=== PATIENT | male | born 1980 | race Caucasian/White ===

== ENCOUNTER 2023-12-09 15:29 | Emergency (ER) | payer OTHER, MEDICAID, SELFPAY ==
[2023-12-09] VITALS (17 sets, daily range): BP systolic 130–156; BP diastolic 47–86; PULSE 49–89; RESP 12–22; TEMP 37.6; O2SAT 97–100; BMI 47.9
--- NOTE | 2023-12-09 15:56 | CT_ITS ---
The [address] [address] Patient Name: MAURO NUNEZ MRN: [id number] date: 1980 Sex: M Assigned Patient Location: ER Current Patient Location: ER Accession/Order Number: [id number] Exam Date: 12/09/2023 16:25 Report Date: 12/09/2023 16:41 At the request of: ALAYNA LOPEZ Procedure: CT head/brain wo con EXAM: CT head/brain wo con HISTORY: Dizziness COMPARISON: None. TECHNIQUE: Axial CT images were obtained of the head without intravenous contrast. Multiplanar reconstructions were performed. FINDINGS: No acute intracranial hemorrhage. No acute loss of byrd/white differentiation. The ventricles and sulci are normal in appearance. The osseous structures are unremarkable. No soft tissue abnormality identified. The paranasal sinuses and mastoid air cells are clear. CT/CT head/brain wo con IMPRESSION: 1. No acute intracranial abnormality. Electronically authenticated by: MARY POOLE Date: 12/09/2023 16:41
--- NOTE | 2023-12-09 15:56 | ECG_ITS ---
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
--- NOTE | 2023-12-09 16:00 | ED.DIZZY1 ---
HPI - Dizziness General Chief Complaint: Dizziness Stated Complaint: DIZZINESS Time Seen by Provider: 12/09/23 15:47 History of Present Illness HPI Narrative: 43 year old male presents to the ED for dizziness. Onset was 4-5 days ago. Reports a mild spinning sensation. He has right ear and right facial pressure. Denies fever, chills, vision changes, OLIVA, weakness. Denies congestion, rhinorrhea, sore throat cough. Denies CP, SOB, palpitations. Denies N/V/D. Related Data Home Medications Medication Instructions Recorded Confirmed hydrochlorothiazide 25 mg tablet 25 mg PO DAILY 12/09/23 12/09/23 lorazepam 0.5 mg tablet 0.5 mg PO Q12H PRN anxiety 12/09/23 12/09/23 metoprolol succinate 100 mg 100 mg PO DAILY 12/09/23 12/09/23 tablet,extended release 24 hr potassium chloride 10 mEq 10 meq PO DAILY 12/09/23 12/09/23 tablet,extended release Previous Rx's Medication Instructions Recorded loratadine 5 mg-pseudoephedrine ER 1 tab PO BID PRN sinus symptoms 12/09/23 120 mg tablet,extended #10 tabs release,12hr (Claritin-D 12 Hour) Allergies Allergy/AdvReac Type Severity Reaction Status Date / Time No Known Drug Allergies Allergy Verified 12/09/23 15:48 Review of Systems ROS Constitutional Denies: fever or chills Eyes Denies: change in vision, blurry vision or light sensitivity Ears, nose, mouth, and throat Reports: ear pain; Denies: throat pain, neck pain, throat swelling, ear discharge, nasal discharge or nasal congestion Cardiovascular Denies: chest pain or palpitations Respiratory Denies: shortness of breath or cough Gastrointestinal Denies: abdominal pain, nausea, vomiting or diarrhea Musculoskeletal Denies: back pain or neck pain Integumentary/Breast Denies: rash or itching Neurological Reports: dizziness and vertigo; Denies: headache, numbness in extremities, weakness in extremities, lack of coordination, confusion or slurred speech Exam Constitutional Vital Signs, click to edit/add: Last Vital Signs Temp 99.6 F 12/09/23 15:35 Pulse 55 L 12/09/23 17:20 Resp 15 12/09/23 17:20 BP 130/67 12/09/23 15:52 Pulse Ox 97 12/09/23 17:20 O2 Del Method Room Air 12/09/23 15:35 Common normals: no apparent distress and oriented x3 General appearance: cooperative HENMT Common normals: normocephalic Face and sinus: normal facial exam Nose: external nose normal External ear: external ears normal External auditory canal: EACs normal Tympanic membrane: TMs normal bilaterally Mouth: oral and palatal mucosa normal, lip normal and tongue normal Throat: posterior oropharynx normal and uvula midline Eye Common normals: PERRL, EOMs intact bilaterally, conjunctivae normal and no scleral icterus Neck & C-Spine Common normals: supple Chest Chest: symmetrical chest wall rise Respiratory Common normals: normal respiratory effort and clear to auscultation bilaterally Effort & inspection: able to speak in complete sentences and symmetric chest movement Cardio Common normals: regular rate and regular rhythm Neuro Common normals: oriented x3 and CN's II-XII intact bilaterally Sensorium/orientation: awake and alert Speech: speech normal Gait (neuro): normal gait Motor exam: strength 5/5 throughout Psych Attitude: calm Speech: normal speech Course Vital Signs Vital signs: Vital Signs Temperature 99.6 F 12/09/23 15:35 Pulse Rate 89 12/09/23 15:35 Respiratory Rate 20 12/09/23 15:35 Blood Pressure 132/47 L 12/09/23 15:35 Pulse Oximetry 100 12/09/23 15:35 Oxygen Delivery Method Room Air 12/09/23 15:35 Temperature 99.6 F 12/09/23 15:35 Pulse Rate 55 L 12/09/23 17:20 Respiratory Rate 15 12/09/23 17:20 Blood Pressure 130/67 12/09/23 15:52 Pulse Oximetry 97 12/09/23 17:20 Oxygen Delivery Method Room Air 12/09/23 15:35 MDM - Dizziness MDM Narrative Medical decision making narrative: Potassium was 3.3, magnesium 1.7. He takes a potassium supplement. Imaging was negative for acute findings. Additional laboratory studies were unremarkable. He declined Antivert here. A prescription was provided for Claritin-D. Follow up with pcp for a recheck, further evaluation and treatment. Return precautions were discussed. Medical Records Attestation: I reviewed the patient's medical records. Lab Data Attestation: I reviewed the patient's lab results. Labs: Lab Results 12/09/23 Range/Units 16:16 WBC 6.5 (4.0-11.0) 10^3/uL RBC 4.08 L (4.70-6.10) 10^6/uL Hgb 12.8 L (14.0-18.0) g/dL Hct 38.5 L (42.0-54.0) % MCV 94.4 H (80.0-94.0) fL MCH 31.4 (25.9-34.0) pg MCHC 33.2 (29.9-35.2) g/dL RDW 11.7 (11.0-15.0) % Plt Count 239 (150-450) 10^3/uL MPV 10.6 (9.5-13.5) fL Neut % (Auto) 56.6 (43.0-75.0) % Lymph % (Auto) 32.7 (20.5-60.0) % [place] % (Auto) 8.0 (1.7-12.0) % Eos % (Auto) 1.9 (0.9-7.0) % Baso % (Auto) 0.5 (0.2-2.0) % Neut # (Auto) 3.7 (1.4-6.5) 10^3/uL Lymph # (Auto) 2.1 (1.2-3.8) 10^3/uL [place] # (Auto) 0.5 (0.3-0.8) 10^3/uL Eos # (Auto) 0.1 (0.0-0.7) 10^3/uL Baso # (Auto) 0.0 (0.0-0.1) 10^3/uL Abs Immat Gran (auto) 0.02 (0.00-0.03) 10^3/uL Imm/Tot Granulo (auto) 0.3 (0.0-0.5) % Sodium 142 (136-145) mmol/L Potassium 3.3 L (3.5-5.1) mmol/L Chloride 103 (98-107) mmol/L Carbon Dioxide 31.1 (21.0-32.0) mmol/L Anion Gap 11.2 BUN 14.0 (7.0-18.0) mg/dL Creatinine 0.92 (0.70-1.30) mg/dL Est GFR ( Amer) >60 (>=60) Est GFR (Non-Af Amer) >60 (>=60) BUN/Creatinine Ratio 15.2 Glucose 101 (74-106) mg/dL Calcium 9.3 (8.5-10.1) mg/dL Magnesium 1.7 L (1.8-2.4) mg/dL Imaging Data CT scan - head: Radiologist's impression: ITS Impressions Head CT 12/09/23 15:56 IMPRESSION: 1. No acute intracranial abnormality. Electronically authenticated by: MARY POOLE Date: 12/09/2023 16:41 Procedure: CT head/brain wo con EXAM: CT head/brain wo con HISTORY: Dizziness COMPARISON: None. TECHNIQUE: Axial CT images were obtained of the head without intravenous contrast. Multiplanar reconstructions were performed. FINDINGS: No acute intracranial hemorrhage. No acute loss of byrd/white differentiation. The ventricles and sulci are normal in appearance. The osseous structures are unremarkable. No soft tissue abnormality identified. The paranasal sinuses and mastoid air cells are clear. CT/CT head/brain wo con IMPRESSION: 1. No acute intracranial abnormality. ECG Data Attestation: ?I have reviewed the pertinent ECG results. (EKG was reviewed by the attending physician. It showed sinus rhythm at a rate of 68. No acute ST segment changes. ) Interpretation: Measurements Intervals [place] Rate: 68 P: 58 [place]: 192 QRS: 40 QRSD: 96 T: 3 QT: 364 QTc: 382 Interpretive Statements 1100 Sinus rhythm 4068 Nonspecific Twave abnormality 9130 borderline ECG No previous ECG available for comparison Discharge Plan Discharge Chief Complaint: Dizziness Clinical Impression: Dizziness, Sinus pressure Patient Disposition: Home, Self-Care Time of Disposition Decision: 16:53 Condition: Good Mode of Transportation: Private Vehicle Prescriptions / Home Meds: New Claritin-D 12 Hour 5-120 mg tablet extended release 12 hr 1 tab PO BID PRN (Reason: sinus symptoms) Qty: 10 0RF No Action hydrochlorothiazide 25 mg tablet 25 mg PO DAILY lorazepam 0.5 mg tablet 0.5 mg PO Q12H PRN (Reason: anxiety) metoprolol succinate 100 mg tablet extended release 24 hr 100 mg PO DAILY potassium chloride 10 mEq tablet extended release 10 meq PO DAILY Instructions: Dizziness (ED) Additional Instructions: Return to the ER if your condition worsens. Stand Alone Forms: Portal Instructions Referrals: Physician,Non-Staff, [Physician] - 1 week Discharge Date/Time: 12/09/23 17:41
[2023-12-09] MEDS: 0.9 % SODIUM CHLORIDE 1,000 ML 500 ML IV (16:13)
[2023-12-09 16:27] LABS: Basophils Percent Auto 0.5 % (0.2-2.0); Eosinophils Absolute Auto 0.1 10^3/uL (0.0-0.7); Eosinophils Percent Auto 1.9 % (0.9-7.0); Hematocrit 38.5 % (42.0-54.0); Hemoglobin 12.8 g/dL (14.0-18.0); Immature Granulocytes Abs Auto 0.02 10^3/uL (0.00-0.03); Immature Granulocytes Pct Auto 0.3 % (0.0-0.5); Lymphocytes Absolute Auto 2.1 10^3/uL (1.2-3.8); Lymphocytes Percent Auto 32.7 % (20.5-60.0); Mean Corpuscular HGB Conc 33.2 g/dL (29.9-35.2); Mean Corpuscular Hemoglobin 31.4 pg (25.9-34.0); Mean Corpuscular Volume 94.4 fL (80.0-94.0); Mean Platelet Volume 10.6 fL (9.5-13.5); Monocytes Absolute Auto 0.5 10^3/uL (0.3-0.8); Neutrophils Absolute Auto 3.7 10^3/uL (1.4-6.5); Neutrophils Percent Auto 56.6 % (43.0-75.0); Platelet Count 239 10^3/uL (150-450); Red Blood Count 4.08 10^6/uL (4.70-6.10); Red Cell Distribution Width 11.7 % (11.0-15.0); White Blood Count 6.5 10^3/uL (4.0-11.0)
[2023-12-09 16:35] LABS: Anion Gap 11.2; BUN Creatinine Ratio 15.2; Calcium 9.3 mg/dL (8.5-10.1); Carbon Dioxide 31.1 mmol/L (21.0-32.0); Chloride 103 mmol/L (98-107); Estimated GFR (African America >60 (>=60); Estimated GFR (Non-African Ame >60 (>=60); Glucose 101 mg/dL (74-106); Magnesium 1.7 mg/dL (1.8-2.4); Potassium 3.3 mmol/L (3.5-5.1); Sodium 142 mmol/L (136-145)
[2023-12-09] MEDS: POTASSIUM CITRATE 10 MEQ ER TABLET 40 MEQ PO (17:30)
[2023-12-09] MEDS: MAGNESIUM OXIDE 400 MG TABLET PO (17:30)
== END 2023-12-09 17:41 | disposition home or self-care (01) ==
PROVIDERS: Nurse Practitioner Family; Emergency Provider Emergency Medicine; PCP Family Medicine
DX: R42 Dizziness and giddiness (principal); J34.89 Other specified disorders of nose and nasal sinuses; Z79.899 Other long term (current) drug therapy
CPT/HCPCS: 36415; 70450; 80048; 83735; 85025; 93005; 99285

== ENCOUNTER 2024-02-13 07:35 | Emergency (ER) | payer OTHER, SELFPAY ==
[2024-02-13 07:38] VITALS: BP 177/95; PULSE 85; TEMP 36.9; O2SAT 99; BMI 47.3
--- NOTE | 2024-02-13 07:53 | ED_ITS ---
HPI HPI - General Adult General Chief complaint: Upper Respiratory Infection Stated complaint: SORE THROAT Time Seen by Provider: 02/13/24 07:46 Source: patient Mode of arrival: walk-in Limitations: no limitations History of Present Illness HPI narrative: 43-year-old male presents to the emergency department for sore throat. He had it for couple of days. No fever. He was also concerned he may have picked up a an STD in his throat from oral sex. No skin rash diarrhea or abdominal pain or dysuria. Related Data Home Medications ?Medication ?Instructions ?Recorded ?Confirmed hydrochlorothiazide 25 mg tablet 25 mg PO DAILY 12/09/23 12/09/23 lorazepam 0.5 mg tablet 0.5 mg PO Q12H PRN anxiety 12/09/23 12/09/23 metoprolol succinate 100 mg 100 mg PO DAILY 12/09/23 12/09/23 tablet,extended release 24 hr potassium chloride 10 mEq 10 meq PO DAILY 12/09/23 12/09/23 tablet,extended release Previous Rx's ?Medication ?Instructions ?Recorded loratadine 5 mg-pseudoephedrine ER 1 tab PO BID PRN sinus symptoms 12/09/23 120 mg tablet,extended #10 tabs release,12hr (Claritin-D 12 Hour) penicillin V potassium 250 mg 250 mg PO QID 10 days #40 tabs 02/13/24 tablet Allergies Allergy/AdvReac Type Severity Reaction Status Date / Time No Known Drug Allergies Allergy Verified 12/09/23 15:48 Opioid HPI Opioid Management Most Recent Opioid Data: No Data to Display Review of Systems ROS Narrative A ten point review of systems is negative except as noted above. Exam Narrative Exam Narrative: Nurses note and vital signs reviewed and patient is not hypoxic. General: The patient appears well and in no apparent distress. Patient is resting comfortably on cart. Skin: Warm, dry, no pallor noted. There is no rash noted. Head: Normocephalic, atraumatic Eye: Normal conjunctiva, no drainage Ears, Nose, Mouth, and Throat: oral mucosa is moist. Nares patent. No pharyngeal exudate or erythema. Uvula midline. No peritonsillar swelling. He is handling his oral secretions well. Cardiovascular: Regular Rate and Rhythm Respiratory: Patient is in no distress, no accessory muscle use, lungs are clear to auscultation, no wheezing, rales or rhonchi Back: non-tender GI: Obese soft and nontender Musculoskeletal: The patient has no evidence of calf tenderness, no pitting edema, symmetrical pulses noted bilaterally Neurological: A&O, normal speech Psychiatric: Cooperative Constitutional Vital Signs, click to edit/add: Last Vital Signs Temp 98.5 F 02/13/24 07:38 Pulse 85 02/13/24 07:38 Resp 18 02/13/24 07:38 BP 177/95 H 02/13/24 07:38 Pulse Ox 99 02/13/24 07:38 O2 Del Method Room Air 02/13/24 07:38 Course Vital Signs Vital signs: Vital Signs Temperature 98.5 F 02/13/24 07:38 Pulse Rate 85 02/13/24 07:38 Respiratory Rate 18 02/13/24 07:38 Blood Pressure 177/95 H 02/13/24 07:38 Pulse Oximetry 99 02/13/24 07:38 Oxygen Delivery Method Room Air 02/13/24 07:38 Temperature 98.5 F 02/13/24 07:38 Pulse Rate 85 02/13/24 07:38 Respiratory Rate 18 02/13/24 07:38 Blood Pressure 177/95 H 02/13/24 07:38 Pulse Oximetry 99 02/13/24 07:38 Oxygen Delivery Method Room Air 02/13/24 07:38 Medical Decision Making MDM Narrative Medical decision making narrative: Strep test is positive and he is prescribed penicillin. He also had concerns of gonorrhea and a culture is ordered. Treatment diagnosis and follow-up were discussed with the patient. Differential Diagnosis Differential Diagnosis: Strep throat, viral pharyngitis Lab Data Lab results reviewed: Yes I reviewed the patient's lab results Labs: Lab Results 02/13/24 Range/Units 07:41 Streptococcus Screen Positive A Discharge Plan Discharge Stand Alone Forms: Portal Instructions Chief Complaint: Upper Respiratory Infection Clinical Impression: Strep throat Patient Disposition: Home, Self-Care Time of Disposition Decision: 08:07 Condition: Good Mode of Transportation: Private Vehicle Prescriptions / Home Meds: New penicillin V potassium 250 mg tablet 250 mg PO QID 10 Days Qty: 40 0RF No Action hydrochlorothiazide 25 mg tablet 25 mg PO DAILY lorazepam 0.5 mg tablet 0.5 mg PO Q12H PRN (Reason: anxiety) metoprolol succinate 100 mg tablet extended release 24 hr 100 mg PO DAILY potassium chloride 10 mEq tablet extended release 10 meq PO DAILY Claritin-D 12 Hour 5-120 mg tablet extended release 12 hr 1 tab PO BID PRN (Reason: sinus symptoms) Qty: 10 0RF Print Language: Indonesian Instructions: Strep Throat (ED) Referrals: ARMIDA BATISTA [Primary Care Provider] - 1 week
--- OUTSIDE RECORDS SUMMARY | 2024-02-13 07:55 | XMS_ITS | CCD ---
Author Organization [facility] Care Team Providers Care Lens Generator Name Role Phone Armida Batista Unavailable Sheri Alexandra Unavailable LESTER, DR HUFFMAN Primary Care Unavailable GIRJIM, DR HUFFMAN Admitting Unavailable GIRVIN, DR HUFFMAN Attending Unavailable GIRVIN, DR HUFFMAN Consulting Unavailable ZIEBER, DR BEATRICE Baker Consulting Unavailable GIRVIN, DR HUFFMAN Admitting Unavailable GIRVIN, DR HUFFMAN Attending Unavailable GIRVIN, DR HUFFMAN Consulting Unavailable GIRVIN, DR HUFFMAN Primary Care Unavailable CARRSVILLE, DR ARMIDA Maldonado Consulting Unavailable GIRVIN, DR HUFFMAN Primary Care Unavailable GIRVIN, DR HUFFMAN Admitting Unavailable GIRVIN, DR HUFFMAN Attending Unavailable GIRVIN, DR HUFFMAN Consulting Unavailable ZIEBER, DR BEATRICE Baker Consulting Unavailable Libra Evans Unavailable Unavailable Primary Care Provider EMELIA Mccain Attending Unavailable Allergies Allergy Classification Reported Allergen(s) Allergy Type Date of Onset Reaction(s) Facility (20 sources) prozac- caused rage Propensity to adverse reactions Unknown [place] Other (20 sources) B12 - caused rage Propensity to adverse reactions Unknown [place] Other (7 sources) Sertraline Drug Allergy made angry [place] Other (3 sources) busPIRone Drug Allergy night terrors / increased anxiety [facility] Other Medications Current Medications Medication Drug Class(es) Dates Sig (Normalized) Sig (Original) [id number] 200 actuat albuterol 0.09 mg/actuat metered dose inhaler (2 sources) beta2-Adrenergic Agonist Start: 12-13-2023 take 2 puff(s) by inhalation every four hours as needed for wheezing albuterol sulfate HFA (PROVENTIL;VENTOL IN;PROAIR) 108 (90 Base) MCG/ACT inhaler Inhale 2 puffs into the lungs every 4 hours as needed for Shortness of Breath or Wheezing 0 12/13/2023 Active Start: 12-13-2023 take 1 puff(s) by in halation four times daily Albuterol Sulfate Active 2 PUFF INHALATION Four times daily 8.5 December 13, 2023 1:00am azithromycin 250 mg oral tablet (8 sources) Macrolide Antimicrobial Start: 12-13-2023 take 1 tablet by mouth once daily azithromycin (ZITHROMAX) 250 MG tablet Take 1 tablet by mouth daily 0 12/13/2023 Active Start: 12-13-2023 End: 01-12-2024 Azithromycin Discontinued 0 PO .COMPLEX 6 December 13, 2023 1:00am January 12, 2024 10:24am For 250 mg dose pack: take 500 mg today (day 1), then 250 mg for 4 days (days 2-5) PO Start: 12-15-2022 Azithromycin 2 50 MG 2 tablets on day 1 Orally then take 1 tablet daily on days 2-5 for 5 days Nov, Not-Taking busPIRone hydrochloride 5 mg oral tablet (4 sources) Start: 06-10-2023 take 1 tablet by mouth every twelve hours busPIRone HCl 5 MG 1 tablet Orally Twice a day May, Active Start: 06-10-2023 take 1 tablet by rahat th every twelve hours busPIRone HCl 10 MG 1 tablet Orally Twice a day for 30 days May, Active Co Q 10 (20 sources) Co Q 10 Active hydroCHLOROthiazide 25 mg oral tablet (20 sources) Thiazide Diuretic Start: 01-12-2024 take 1 tablet by mouth once daily Hydrochlorothiazide Active 1 TAB PO Daily January 12, 2024 12:00am FreeTextSig: take 1 tablet by mouth once daily; Note: Source Status: Taking; Provider: Lester Huffman ( ) take 1 tablet by mouth once tu y hydroCHLOROthiazide (HYDRODIURIL) 25 MG tablet Take 1 tablet by mouth daily 0 Active hydrocortisone acetate 25 mg rectal suppository (1 source) Corticosteroid Start: 01-12-2024 Hydrocortisone Acetate Active MG FL January 12, 2024 12:00am FreeTextSig: unwrap and insert 1 suppository Rectal rectally twice a day x6 days; Note: Source Status: Start; Refills: 0; Provider: Lester Whitehead LORazepam 0.5 mg oral tablet (20 sources) Benzodiazepine Start: 01-12-2024 take 1 tablet by mouth every twelve hours as needed Lorazepam Active MG PO January 12, 2024 12:00am FreeTextSi tablet Orally q12 hrs prn; Note: Source Status: Refill; Refills: 0; Provider: Lester Whitehead Start: 11-28-2018 take 1 tablet by rahat th every twelve hours as needed Ativan 0.5 MG 1 tablet Orally q12 hrs prn for 7 days Nov, Active take 1 tablet by rahat th every eight hours as needed LORazepam (ATIVAN) 0.5 MG tablet Take 1 tablet by mouth every 8 hours as needed. Max Daily Amount: 1.5 mg 0 Active meclizine hydrochloride 25 mg oral tablet (3 sources) Antiemetic Start: 03-01-2019 take 1 tablet by mouth every twelve hours methylPREDNISolone 4 mg oral tablet (8 sources) Corticosteroid Start: 02-10-2023 methylPREDNISolone 4 MG as directed Orally with food for 6 days Jan, Active Metoprolol (20 sources) beta-Adrenergic [place] Start: 12-20-2023 take 1 tablet by mouth once daily Metoprolol Succinate Active 0 .ROUTE .COMPLEX December 20, 2023 2:40pm take 1 tablet by mouth once daily Start: 12-20-2023 End: 12-20-2023 take 1 tablet by mouth once daily Metoprolol Succinate Discontinued 1 TAB PO Daily December 20, 2023 1:00am December 20, 2023 2:41pm FreeTextSig: take 1 tablet by mouth once daily; Note: Source Status: Taking; Refills: 3; Qty: 30 Tablet; Provider: Lester Huffman ( ) take 1 tablet by rahat th once daily metoprolol succinate (TOPROL XL) 100 MG extended release tablet Take 1 tablet by mouth daily 0 Active Potassium Chloride 10 MEQ PACK (1 source) Start: 09-03-2023 take 10 mEq by mouth once daily Potassium Chloride 10 MEQ PACK Take 10 mEq by mouth daily 0 09/03/2023 Active tiZANidine 4 mg oral tablet (1 source) Central alpha-2 Adrenergic Agonist Start: 01-12-2024 Tizanidine (Zanaflex) 4 mg tablet Active 4 MG PO .COMPLEX 30 January 12, 2024 12:00am 4 mg orally q8-12 hrs; ubidecarenone 300 mg oral capsule (2 sources) Start: 01-12-2024 Coenzyme Q10 ( Co Q-10) 300 mg capsule Active 300 MG PO Daily January 12, 2024 12:00am take 1 capsule by mouth once giorgi ly coenzyme Q10 200 MG CAPS capsule Take 1 capsule by mouth daily 0 Active Vitamin D (20 sources) Vitamin D Active VITAMIN D, CHOLECALCIFEROL, PO (1 source) take 5000 [IU] by mouth once daily VITAMIN D, CHOLECALCIFEROL, PO Take 5,000 Units by mouth daily 0 Active Completed/Discontinued Medications Medication Drug Class(es) Dates Sig (Normalized) Sig (Original) amLODIPine 2.5 mg oral tablet (20 sources) Dihydropyridine Calcium Channel [place] take 1 tablet by mouth once daily amLODIPine Besylate 2.5 MG take 1 tablet by mouth once daily Not-Taking Calcium & Magnesium Carbonates (3 sources) Calcium & Magnes ium Carbonates Not-Taking Vitamin B12 1000 MCG (6 sources) Start: 04-14-2019 Start: 04-14-2019 take 1 tablet by rahat once daily, then take 1 tablet by mouth every other day Vitamin B12 1000 MCG 1 tablet Orally qd x7 days then take 1 tab qod Mar, Not-Taking Start: 03-13-2019 Start: 03-13-2019 Vitamin B12 10 00 MCG 1 tablet Orally wed-February, Not-Taking Problems Active Problems Problem Classification Problem Date Documented Date Episodic/Chronic Anxiety disorders (20 sources) Anxiety; Translations: [Anxiety disorder, unspecified] Onset: 08-13-2021 Resolved: 08-13-2021 Chronic Calculus of urinary tract (4 sources) Personal history of urinary calculi; Translations: [Calculus of kidney] Onset: 02-14-2023 Episodic Conditions associated with dizziness or vertigo (2 sources) Dizziness; Translations: [Dizziness and giddiness] 01-12-2024 Episodic Deficiency and other anemia (4 sources) Anemia, unspecified; Translations: [Anemia, unspecified] Episodic Deficiency and other anemia (1 source) Anemia; Translations: [Anemia, unspecified] 01-12-2024 Episodic Diabetes mellitus without complication (3 sources) Hyperglycemia, unspecified Episodic Essential hypertension (20 sources) Essential hypertension; Translations: [Essential (primary) hypertension] Onset: 08-13-2021 Resolved: 08-22-2021 Chronic Genitourinary symptoms and ill-defined conditions (2 sources) Frequency of micturition; Translations: [Nocturia] Episodic Headache; including migraine (2 sources) Pain in face; Translations: [Facial pain] 01-12-2024 Episodic Immunizations and screening for infectious disease (20 sources) Contact with and (suspected) exposure to other viral communicable diseases; Translations: [Contact with and (suspected) exposure to other viral communicable diseases] Episodic Malaise and fatigue (3 sources) Other fatigue Episodic Mood disorders (2 sources) Mood disorder; Translations: [Unspecified mood [affective] disorder] Onset: 12-14-2023 12-14-2023 Chronic Other aftercare (3 sources) 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 therapy Episodic Other circulatory disease (1 source) Ecchymosis; Translations: [Hemorrhage, not elsewhere classified] 01-12-2024 Episodic Other circulatory disease (1 source) Hemorrhage, not elsewhere classified; Translations: [Other specified disorders of circulatory system] 01-12-2024 Episodic Other connective tissue disease (1 source) Muscle tension pain; Translations: [Myalgia, unspecified site] 01-12-2024 Episodic Other connective tissue disease (1 source) Myalgia, unspecified site; Translations: [Myalgia and myositis, unspecified] 01-12-2024 Episodic Other liver diseases (20 sources) Steatosis of liver; Translations: [Fatty (change of) liver, not elsewhere classified] Chronic Other liver diseases (3 sources) Fatty (change of) liver, not elsewhere classified Chronic Other nervous system disorders (20 sources) Paresthesia of upper limb; Translations: [Paresthesia of skin] Episodic Other nervous system disorders (1 source) Paresthesia of skin Episodic Other nutritional; endocrine; and metabolic disorders (20 sources) Morbid obesity; Translations: [Body mass index (BMI) 60.0-69.9, adult] Chronic Other nutritional; endocrine; and metabolic disorders (20 sources) Body mass index 40+ - severely obese; Translations: [Body mass index (BMI) 50.0-59.9, adult] Chronic Other nutritional; endocrine; and metabolic disorders (7 sources) Abnormal weight loss; Translations: [Weight loss R63.4] Onset: 08-13-2021 Resolved: 08-13-2021 Episodic Other screening for suspected conditions (not mental disorders or infectious disease) (4 sources) Encounter for screening for malignant neoplasm of prostate; Translations: [Other specified abnormal findings of blood chemistry] Episodic Other upper respiratory disease (20 sources) Allergic rhinitis; Translations: [Allergic rhinitis, unspecified] Chronic Other upper respiratory infections (2 sources) Acute upper respiratory infection; Translations: [Acute upper respiratory infection, unspecified] Onset: 12-16-2023 12-16-2023 Episodic Residual codes; unclassified (20 sources) Obstructive sleep apnea syndrome; Translations: [Idiopathic sleep related nonobstructive alveolar hypoventilation] Chronic Spondylosis; intervertebral disc disorders; other back problems (1 source) Other intervertebral disc degeneration, lumbar region; Translations: [OTH IV DISC DEGEN LUMBAR REGION] Onset: 02-20-2023 Chronic Spondylosis; intervertebral disc disorders; other back problems (7 sources) Dorsalgia, unspecified; Translations: [Neck pain] Onset: 02-09-2023 Episodic Unclassified (3 sources) LOW BACK PAIN, UNSPECIFIED; Translations: [LOW BACK PAIN, UNSPECIFIED] Onset: 02-20-2023 Past or Other Problems Problem Classification Problem Date Documented Da te Episodic/Chronic Nonspecific chest pain (2 sources) Chest pain, unspecified; Translations: [Chest pain R07.9] Onset: 08-13-2021 Resolved: 08-22-2021 Episodic Other non-traumatic joint disorders (5 sources) Pain in left shoulder; Translations: [PAIN IN LEFT SHOULDER] Onset: 10-02-2022 Episodic Unclassified (5 sources) Lumbar pain M54.50 Unclassified (1 source) LOW BACK PAIN, UNSPECIFIED; Translations: [LOW BACK PAIN, UNSPECIFIED] Onset: 02-15-2023 Viral infection (1 source) COVID-19 Results Test Name Value Interpretation Reference Range Facility COVID-19 & Influenza [place] 12-16-2023 Influenza A by PCR Negative Negative [facility] Influenza B by PCR Negative Negative [facility] SARS-CoV-2 (COVID-19) RNA CHRISTI+probe Ql (Unsp spec) Negative Negative [facility] Comment on above: Fact Sheet for HCP: https://www.fda.gov/media/355722/download Fact Sheet for Patients: https://www.fda.gov/media/670979/download Is this test for diagnosis or screening?->Diagnosi s of ill patient [facility] Portable XR Chest AP single viewon 12-16-2023 Clear lungs without infiltrate. Cardiac silhouette prominent, accentuated by magnification. [facility] RIS CONSOLIDATED EXAM: XR CHEST PORTABLE HISTORY: TECH NOTES: Cough Congestion Nasal congestion cough COMPARISON: 11/04/2018 TECHNIQUE: AP upright chest x-ray 4:46 PM FINDINGS: Lungs are clear without infiltrate or edema. Cardiac silhouette prominent, accentuated by magnification. Pleural effusion or pneumothorax. Report electronically signed by: Dr. Valentin Oralndo [facility] Valentin Orlando - 12/16/2023 EXAM: XR CHEST PORTABLE HISTORY: TECH NOTES: Cough Congestion Nasal congestion cough COMPARISON: 11/04/2018 TECHNIQUE: AP upright chest x-ray 4:46 PM FINDINGS: Lungs are clear without infiltrate or edema. Cardiac silhouette prominent, accentuated by magnification. Pleural effusion or pneumothorax. Report electronically signed by: Dr. Valentin Orlando IMPRESSION: Clear lungs without infiltrate. Cardiac silhouette prominent, accentuated by magnification. [facility] Work Phone: Radiology Study observation (narrative) [facility] Work Phone: Portable XR Chest AP single viewOrdered By: Valentin Orlando on 12-16-2023 [facility] 3 PLEXon 024 Gene-COVID Negative Normal Negative [facility] Comment on above: Order Comment: Is th is test for diagnosis or screening?->Diagnosis of ill patient Result Comment: Fact Sheet for HCP: https://www.fda.gov/media/385020/download\X0D0A\X0D0A\Fact Sheet for Patients: https://www.fda.gov/media/048039/download Performed By: #### 3 PLEX #### [address] [address] Ph. [phone] Gene-FLUA Negative Normal Negative [facility] Comment on above: Order Comment: Is th is test for diagnosis or screening?->Diagnosis of ill patient Performed By: #### 3 PLEX #### [address] [address] Ph. [phone] Gene-FLUB Negative Normal Negative [facility] Comment on above: Order Comment: Is th is test for diagnosis or screening?->Diagnosis of ill patient Performed By: #### 3 PLEX #### [address] [address] Ph. [phone] XR CHEST PORTABLEon 12-16-19 XR CHEST PORTABLE RADRPT EXAM: XR CHEST PORTABLE HISTORY: TECH NOTES: Cough Congestion Nasal congestion cough COMPARISON: 11/04/2018 TECHNIQUE: AP upright chest x-ray 4:46 PM FINDINGS: Lungs are clear without infiltrate or edema. Cardiac silhouette prominent, accentuated by magnification. Pleural effusion or pneumothorax. Report electronically signed by: Dr. Valentin Orlando IMPRESSION: Clear lungs without infiltrate. Cardiac silhouette prominent, accentuated by magnification. Cough Congestion Nasal congestion Interpreted by: Valentin Orlando Signed by: Valentin Orlando 12/16/[address] [facility] Basophils Auto (Bld) [#/Vol] on 12-09-2023 Basophils (Bld) [#/Vol] 0.0 10 3/uL 0.0-0.1 [facility] Basophils/100 WBC Auto (Bld) on 12-09-2023 Basophils/100 WBC (Bld) 0.5 % 0.2-2.0 [facility] Eosinophils/100 WBC Auto (Bl d)on 12-09-2023 Eosinophils/100 WBC (Bld) 1.9 % 0.9-7.0 [facility] Erythrocyte distribution wid th Auto (RBC) [Ratio]on 12-09-2023 Erythrocyte distribution width (RBC) [Ratio] 11.7 % 11.0-15.0 [facility] Estimated glomerular filtrat ion rate (GFR) non- Americanon 12-09-2023 GFR/1.73 sq M.predicted among non-blacks MDRD (S/P/Bld) [Vol rate/Area] mL/min/{1.73_m2} >=60 [facility] Hematocrit Auto (Bld) [Volum e fraction]on 12-09-2023 Hematocrit (Bld) [Volume fraction] 38.5 % 42.0-54.0 [facility] Hemoglobin [Mass/volume] in Bloodon 12-09-2023 Hemoglobin (Bld) [Mass/Vol] 12.8 g/dL 14.0-18.0 [facility] Laboratory - Chemistry and C hemistry - challengeon 12-09-2023 Calcium [Mass/Vol] 9.3 mg/dL 8.5-10.1 [facility] Chloride [Moles/Vol] 103 mmol/L 98-107 [facility] CO2 [Moles/Vol] 31.1 mmol/L 21.0-32.0 [facility] Creatinine [Mass/Vol] 0.92 mg/dL 0.70-1.30 [facility] GFR/1.73 sq M.predicted MDRD (S/P/Bld) [Vol rate/Area] mL/min/{1.73_m2} >=60 [facility] Glucose [Mass/Vol] 101 mg/dL 74-106 [facility] Magnesium [Mass/Vol] 1.7 mg/dL 1.8-2.4 [facility] Potassium [Moles/Vol] 3.3 mmol/L 3.5-5.1 [facility] Sodium [Moles/Vol] 142 mmol/L 136-145 [facility] Urea nitrogen [Mass/Vol] 14.0 mg/dL 7.0-18.0 [facility] Urea nitrogen/Creatinine [Mass ratio] 15.2 mg/mg [facility] Laboratory - Hematology and Cell countson 12-09-2023 Immature granulocytes/100 WBC (Bld) 0.3 % 0.0-0.5 [facility] Leukocytes [#/volume] correc domenica for nucleated erythrocytes in Blood by Automated counon 12-09-2023 WBC corrected for nucl RBC Auto (Bld) [#/Vol] 6.5 10 3/uL 4.0-11.0 [facility] Lymphocytes Auto (Bld) [#/Vo l]on 12-09-2023 Lymphocytes (Bld) [#/Vol] 2.1 10 3/uL 1.2-3.8 [facility] Lymphocytes/100 WBC Auto (Bl d)on 12-09-2023 Lymphocytes/100 WBC (Bld) 32.7 % 20.5-60.0 [facility] MCH Auto (RBC) [Entitic mass ]on 12-09-2023 MCH (RBC) [Entitic mass] 31.4 pg 25.9-34.0 [facility] MCHC Auto (RBC) [Mass/Vol]on 12-09-2023 MCHC (RBC) [Mass/Vol] 33.2 g/dL 29.9-35.2 [facility] MCV Auto (RBC) [Entitic vol] on 12-09-2023 MCV (RBC) [Entitic vol] 94.4 fL 80.0-94.0 [facility] Monocytes Auto (Bld) [#/Vol] on 12-09-2023 Monocytes (Bld) [#/Vol] 0.5 10 3/uL 0.3-0.8 [facility] Monocytes/100 WBC Auto (Bld) on 12-09-2023 Monocytes/100 WBC (Bld) 8.0 % 1.7-12.0 [facility] Neutrophils Auto (Bld) [#/Vo l]on 12-09-2023 Neutrophils (Bld) [#/Vol] 3.7 10 3/uL 1.4-6.5 [facility] Neutrophils/100 WBC Auto (Bl d)on 12-09-2023 Neutrophils/100 WBC (Bld) 56.6 % 43.0-75.0 [facility] No Panel Informationon 12-09 Eosinophils # (Auto) 0.1 10 3/uL 0.0-0.7 [facility] Immature Granulocyte # (Auto) 0.02 10 3/uL 0.00-0.03 [facility] Platelet mean volume Auto (B ld) [Entitic vol]on 12-09-2023 Platelet mean volume (Bld) [Entitic vol] 10.6 fL 9.5-13.5 [facility] Platelets Auto (Bld) [#/Vol] on 12-09-2023 Platelets (Bld) [#/Vol] 239 10 3/uL 150-450 [facility] RBC Auto (Bld) [#/Vol]on RBC (Bld) [#/Vol] 4.08 10 6/uL 4.70-6.10 [facility] Serum or plasma anion gap de terminationon 12-09-2023 Anion gap [Moles/Vol] 11.2 mmol/L [facility] XR LSPINE MIN 4 VIEWSon 01-24 XR LSPINE MIN 4 VIEWS EXAMINATION: XR LSPINE MIN 4 VIEWS HISTORY: Low back pain for 6 months; bilateral leg numbness COMPARISON: CT abdomen pelvis 03/22/2020 FINDINGS: BONES: Slight anterior wedging of T12 vertebral body without increased trabecular density. Degenerative endplate changes L2-L3. DISC SPACES: Mild narrowing L2-L3, L5-S1. Prominent posterior disc bulging suspected at L4-L5. PARASPINOUS: Negative. No paraspinous abnormality is seen. OTHER: Negative. IMPRESSION: 1. Stable slight anterior wedging of T12; developmental versus remote mild compression fracture. 2. Mild degenerative disc disease L2-L3, L5-S1; grossly stable. 3. Suspect prominent posterior disc-osteophyte complex at L4-L5 which may account for patient's symptoms. Consider MRI for further evaluation. Electronically authenticated by: BEATRICE BARNES Date: 2023-02-15 13:41 Normal [facility] CULTURE URINEon 02-09-2023 CULTURE URINE Culture Observations: NO GROWTH. Normal [facility] Comment on above: Performed By: #### U RCX #### [facility] [address] [address] [address] Razia Jordan UA RANDOM W/MICROSCOPICon BACTERIA NONE SEEN Normal NONE SEEN [facility] Comment on above: Performed By: #### U AMIC #### [facility] [id number] Razia Jordan Bilirubin Ql (U) Negative Normal NEGATIVE [facility] Comment on above: Performed By: #### U AMIC #### [facility] [address] [address] [address] Razia Jordan CAST NONE SEEN Normal NONE SEEN [facility] Comment on above: Performed By: #### U AMIC #### [facility] [address] [address] [address] Razia Jordan Clarity (U) CLEAR Normal CLEAR [facility] Comment on above: Performed By: #### U AMIC #### [facility] [address] [address] [address] Razia Jordan Color (U) LT. YELLOW Normal YELLOW [facility] Comment on above: Performed By: #### U AMIC #### [facility] [address] [place] [address] Dr. Razia Jordan Crystals LM Nom (Urine sed) NONE SEEN Normal NONE SEEN [facility] Comment on above: Performed By: #### U AMIC #### [facility] [address] [address] [address] Razia Jordan Epithelial cells LM Ql (Urine sed) RARE Normal NONE SEEN /RARE [facility] Comment on above: Performed By: #### U AMIC #### [facility] [address] [address] [address] Razia Jordan Glucose Ql (U) Negative Normal NEGATIVE [facility] Comment on above: Performed By: #### U AMIC #### [facility] [address] [address] [address] Razia Jordan Hemoglobin Ql (U) Negative Normal NEGATIVE [facility] Comment on above: Performed By: #### U AMIC #### [facility] [address] [address] [address] Razia Jordan Ketones Ql (U) Negative Normal NEGATIVE [facility] Comment on above: Performed By: #### U AMIC #### [facility] [address] [address] [address] Razia Jordan LEUKOCYTES Negative Normal NEGATIVE [facility] Comment on above: Performed By: #### U AMIC #### [facility] [address] [address] [address] Razia Jordan MUCOUS NONE SEEN Normal NONE SEEN [facility] Comment on above: Performed By: #### U AMIC #### [facility] [address] [address] [address] Razia Jordan Nitrite Ql (U) Negative Normal NEGATIVE [facility] Comment on above: Performed By: #### U AMIC #### [facility] [address] [place] [address] Dr. Razia Jordan pH (U) 5.5 [pH] Normal 5-9 [facility] Comment on above: Performed By: #### U AMIC #### [facility] [address] [place] [address] Dr. Razia Jordan RBC NONE SEEN Abnormal 0-2 [facility] Comment on above: Performed By: #### U AMIC #### [facility] [address] [place] [address] Dr. Razia Jordan SPEC GRAVITY 1.025 Normal 1.005-<=1.025 [facility] Comment on above: Performed By: #### U AMIC #### [facility] [address] [place] [address] Dr. Razia Jordan UA PROTEIN Negative Normal NEGATIVE/ TRACE [facility] Comment on above: Performed By: #### U AMIC #### [facility] [address] [place] [address] Dr. Razia Jordan Urobilinogen Qn (U) 0.2 {Viktor'U}/dL Normal 0.2 - 1. 0 [facility] Comment on above: Performed By: #### U AMIC #### [facility] [address] [place] [address] Dr. Razia Jordan WBC NONE SEEN Normal NONE SEEN The [facility] Comment on above: Performed By: #### U AMIC #### [facility] [address] [place] [address] Dr. Razia Jordan XR KUB 1 VIEWon 02-09-2023 XR KUB 1 VIEW EXAMINATION: XR KUB 1 VIEW HISTORY: H/O: urinary stone ; mid back pain for one week COMPARISON: CT abdomen pelvis 03/22/2020 FINDINGS: KIDNEY/URETER - RIGHT: 9 mm stone within inferior pole of kidney; smaller stone within superior pole. KIDNEY/URETER - LEFT: 8 mm stone within inferior pole of left kidney. PELVIS: No visible ureteral stones. BOWEL: No abnormal dilation or deviation. BONES: No acute abnormality. OTHER: Negative. No abnormal gaseous collections. IMPRESSION: 1. Bilateral nephrolithiasis, similar to the 03/22/2020 study. 2. No appreciable ureteral stones. Electronically authenticated by: BEATRICE BARNES Date: 2023-02-09 08:41 Normal [facility] COVID/FLU RT-PCRon 3 SARS-CoV-2 (COVID-19) RNA CHRISTI+probe Ql (Unsp spec) Positive [facility] Other COVID/FLU RT-PCR Negative [employer] Other th CT CARDIAC SCORINGon 08-25 CT CARDIAC SCORING Addendum Begins Patient Name: MAURO NUNEZ ADDENDUM: Technical: The following is to serve as an over-read for an unenhanced cardiac CT, to evaluate the extra vascular structures. Contiguous unenhanced CT sections are performed from the level of the kati to the upper abdomen. Findings: The visualized portions of both lungs are clear. There is no sign of pathologic lymph node enlargement. There is no pericardial or pleural effusion. Images through the upper abdomen are unremarkable. The visualized osseous and soft tissue structures of the chest wall are intact. Impression: The extra vascular structures have an unremarkable CT appearance. Electronically signed by: KARRIE OSULLIVAN MD Addendum Ends Patient Name: MAURO NUNEZ STUDY: CT CARDIAC SCORING; 09/05/2021 8:06 am INDICATION: Essential (primary) hypertension Chest pain, unspecified . COMPARISON: None. ACCESSION NUMBER(S): [id number] ORDERING CLINICIAN: ARMIDA BATISTA TECHNIQUE: Using prospective ECG gating, CT scan of the coronary arteries was performed without intravenous contrast. Coronary calcium scoring was performed according to the method of Agatston. CT Dose-Length Product (DLP): 87.7 mGy*cm CT Dose Reduction Employed: Yes, prospective gating, iterative reconstruction. FINDINGS: The score and distribution of calcium in the coronary arteries is as follows: LM 0 LAD 0 LCx 0 RCA 0 Total 0 The visualized mid/lower ascending thoracic aorta measures 3.6 cm in diameter. The heart is normal in size. No pericardial effusion is present. IMPRESSION: 1. Coronary artery calcium score of 0*. *Coronary artery calcium scoring may be helpful in predicting the risk for future coronary heart disease events. According to the [employer] Clinical Expert Consensus Task Force, such testing provides important prognostic information in patients with more than one coronary heart disease risk factor. The coronary artery calcium score correlates with the annual risk of a non-fatal myocardial infarction or coronary heart disease . Coronary artery score Annual Risk 0-99 0.4% 100-399 1.3% >400 2.4% These three breakpoints correspond to lower, intermediate and high risk states for future coronary events. Such information should be used, along with appropriate clinical judgment, to make decisions regarding the intensity of risk factor management strategies to treat blood lipids and to modify other non-lipid coronary risk factors. Reference: Watchung P et al. Circulation. 2007; 115:402-426 [facility] Service Worker: Dr. Christiano Baugh, Date: 09/06/2021 10:57 am Electronically signed by: KARRIE OSULLIVAN MD [facility] Coding Summaryon 03-29-2020 Coding Summary CODING DATE: 03/29/2020 [facility] STATUS: Home PAYOR: Medicaid HMO ADMIT DX: REASON FOR VISIT DX: R35.0 Frequency of micturition R30.0 Dysuria FINAL DX: PRINCIPAL: N20.0 Calculus of kidney SECONDARY: PYMT PROC APC STAT DESCRIPTION DOCTOR NAME DATE NOTE: The code number assigned matches the documented diagnosis and / or procedure in the patient's chart. However, the narrative phrase printed from the coding software may appear abbreviated, or result in slightly different terminology. Coded By: Jim Morales' Date Saved: 03/29/2020 02:13 pm [facility] Coding Summary CODING DATE: 03/29/2020 [facility] STATUS: Home PAYOR: Medicaid HMO ADMIT DX: REASON FOR VISIT DX: R35.0 Frequency of micturition R30.0 Dysuria FINAL DX: PRINCIPAL: N20.0 Calculus of kidney SECONDARY: PYMT PROC APC STAT DESCRIPTION DOCTOR NAME DATE NOTE: The code number assigned matches the documented diagnosis and / or procedure in the patient's chart. However, the narrative phrase printed from the coding software may appear abbreviated, or result in slightly different terminology. Coded By: Jim Morales' Date Saved: 03/29/2020 02:12 pm Normal [facility] .Auto Diff 03-22-2020 Auto [place] % 7 % Normal 11-05 [facility] Comment on above: Performed By: #### 1 [id number], [id number], 8206571, 12099536, [id number] #### [facility] (DEFAULT) [address] [place] [address] 43460 Baso Abs# 0.0 x10 Normal 0.0-0.2 [facility] Comment on above: Performed By: #### 1 [id number], [id number], 4803419, 11283705, [id number] #### [facility] (DEFAULT) [address] [place] [address] 20631 Basophils/100 WBC (Bld) 0.3 % Normal 0.2-2.0 [facility] Comment on above: Performed By: #### 1 [id number], [id number], 4269787, 09881769, [id number] #### [facility] (DEFAULT) [address] [place] [address] 37322 Eos Abs# 0.1 x10 Normal 0.0-0.4 [facility] Comment on above: Performed By: #### 1 [id number], 1403116337, 0340913, 47537780, [id number] #### [facility] (DEFAULT) [address] [place] [address] 93837 Eosinophils/100 WBC (Bld) 1.9 % Normal 0.9-4.0 [facility] Comment on above: Performed By: #### 1 [id number], [id number], 7052120, 27386986, [id number] #### [facility] (DEFAULT) [address] [place] [address] 36944 Lymphocytes (Bld) [#/Vol] 1.9 x10 Normal 1.3-2.9 [facility] Comment on above: Performed By: #### 1 [id number], 8825055294, 3605945, 83511956, [id number] #### [facility] (DEFAULT) [address] [place] [address] Lymphocytes/100 WBC (Bld) 25 % Normal 14-48 [facility] Comment on above: Performed By: #### 1 [id number], [id number], 8454255, 76539983, [id number] #### [facility] (DEFAULT) [address] [place] [address] Screven Abs# 0.5 x10 Normal 0.0-0.8 [facility] Comment on above: Performed By: #### 1 [id number], [id number], 6388544, 49323844, [id number] #### [facility] (DEFAULT) [address] [place] [address] Neut Abs# 4.8 x10 Normal 1.5-9.2 [facility] Comment on above: Performed By: #### 1 [id number], 0412924706, 9841418, 84311434, 5105153440 #### [facility] (DEFAULT) [address] [place] [address] Neutrophils/100 WBC (Bld) 65 % Normal 44-88 [facility] Comment on above: Performed By: #### 1 [id number], [id number], 4866528, 69791264, 7675914461 #### [facility] (DEFAULT) [address] [place] [address] CBC w/ Auto Diffon 0 Erythrocyte distribution width (RBC) [Ratio] 12.5 % Normal 11.5-15.0 [facility] Comment on above: Performed By: #### 1 [id number], 9243599722, 5091512, 07207184, 7271826984 #### [facility] (DEFAULT) [address] [place] [address] Hematocrit (Bld) [Volume fraction] 39.2 % Normal 34.8-51.9 [facility] Comment on above: Performed By: #### 1 [id number], 9131087932, 1858068, 66623527, [id number] #### [facility] (DEFAULT) [address] [place] [address] Hemoglobin (Bld) [Mass/Vol] 13.7 g/dL Normal 11.8-17.7 [facility] Comment on above: Performed By: #### 1 [id number], 4755962331, 3749966, 33347713, 8555116211 #### [facility] (DEFAULT) [address] [place] [address] Man Diff? Auto Normal [facility] Comment on above: Performed By: #### 1 [id number], 4097824554, 4210467, 37638457, 4067149995 #### [facility] (DEFAULT) [address] [place] [address] MCH (RBC) [Entitic mass] 31 pg Normal 24-34 [facility] Comment on above: Performed By: #### 1 [id number], 1430347332, 6847819, 86445717, 2441373813 #### [facility] (DEFAULT) [address] [place] [address] 17737 MCHC (RBC) [Mass/Vol] 35 g/dL Normal 26-37 [facility] Comment on above: Performed By: #### 1 [id number], 1455831287, 5573812, 16465343, 6445552464 #### [facility] (DEFAULT) [address] [place] [address] 16471 MCV (RBC) [Entitic vol] 89 fL Normal 81-100 [facility] Comment on above: Performed By: #### 1 [id number], 4571540005, 3521763, 69116269, 0567754645 #### [facility] (DEFAULT) [address] [place] [address] 67030 Platelet mean volume (Bld) [Entitic vol] 9.9 fL Normal 6.3-10.2 [facility] Comment on above: Performed By: #### 1 [id number], 0538234572, 3651419, 61475896, 6253422116 #### [facility] (DEFAULT) [address] [place] [address] 57233 Platelets (Bld) [#/Vol] 286 x10 Normal 138-427 [facility] Comment on above: Performed By: #### 1 [id number], 9226530952, 0512738, 62411260, 1740554331 #### [facility] (DEFAULT) [address] [place] [address] 12833 RBC (Bld) [#/Vol] 4.39 x10 Normal 3.70-5.30 [facility] Comment on above: Performed By: #### 1 [id number], 0035020753, 3224842, 13329469, 0776769576 #### [facility] (DEFAULT) [address] [place] [address] 96165 WBC (Bld) [#/Vol] 7.4 x10 [facility] Comment on above: Performed By: #### 1 [id number], 9645657170, 7637199, 17525633, 4577627379 #### [facility] (DEFAULT) [address] [place] [address] 10944 [facility] Standardon 03-22-2020 eGFR Non AA >60 [facility] Comment on above: Performed By: #### 1 [id number], 2061424628, 9923928, 22270999, 2791186920 #### [facility] (DEFAULT) [address] [place] [address] eGFR AA >60 [facility] Comment on above: Result Comment: [place] Stitcher philip Kidney disease could be indicated at eGFRs of less than 60 ml/min/1.73m2. Kidney Failure is indicated at less than 15 ml/min/1.73m2 Performed By: #### 1 [id number], [id number], 8641476, 86006062, 4622371746 #### [facility] (DEFAULT) [address] [place] [address] 00419 Albumin [Mass/Vol] 4.5 g/dL Normal 3.5-5.0 [facility] Comment on above: Performed By: #### 1 [id number], 6099385135, 9615933, 79744592, 1630022428 #### [facility] (DEFAULT) [address] [place] [address] Albumin/Globulin [Mass ratio] 1.2 {ratio} Low 1.4-2.6 [facility] Comment on above: Performed By: #### 1 [id number], 0444346390, 0299798, 07303010, 4893920476 #### [facility] (DEFAULT) [address] [place] [address] Alk Phos 69 IU/L Normal 32-91 [facility] Comment on above: Performed By: #### 1 [id number], 1582944093, 9185900, 60083328, 0696330196 #### [facility] (DEFAULT) [address] [place] [address] ALT/SGPT 34.0 IU/L Normal 17.0-63.0 [facility] Comment on above: Performed By: #### 1 [id number], 1636819820, 2942248, 00522024, 2727805172 #### [facility] (DEFAULT) [address] [place] [address] Anion gap [Moles/Vol] 11.0 mmol/L Normal 5.0-19.0 [facility] Comment on above: Performed By: #### 1 [id number], 3153976766, 9136643, 50023214, 8269473247 #### [facility] (DEFAULT) [address] [place] [address] AST/SGOT 24 IU/L Normal 15-41 [facility] Comment on above: Performed By: #### 1 [id number], 6733453133, 9797230, 90316966, 3705767995 #### [facility] (DEFAULT) [address] [place] [address] 84580 Bili Total 0.6 mg/dL Normal 0.3-1.2 [facility] Comment on above: Performed By: #### 1 [id number], 0396115361, 9270940, 89440086, 5440447825 #### [facility] (DEFAULT) [address] [place] [address] 35967 Calcium [Mass/Vol] 8.8 mg/dL Low 8.9-10.3 [facility] Comment on above: Performed By: #### 1 [id number], 1498142681, 4645288, 26244761, 0551614820 #### [facility] (DEFAULT) [address] [place] [address] 05340 Chloride [Moles/Vol] 105 mmol/L Normal 101-111 [facility] Comment on above: Performed By: #### 1 [id number], 2084282355, 6360510, 68843234, 8151839923 #### [facility] (DEFAULT) [address] [place] [address] 68983 CO2 [Moles/Vol] 26 mmol/L Normal 21-32 [facility] Comment on above: Performed By: #### 1 [id number], 6069982645, 5544630, 07719703, 6704711133 #### [facility] (DEFAULT) [address] [place] [address] 77691 Creatinine [Mass/Vol] 0.74 mg/dL Low 0.90-1.30 [facility] Comment on above: Performed By: #### 1 [id number], 9291525474, 0329523, 41523343, 2227068493 #### [facility] (DEFAULT) [address] [place] [address] 69716 Globulin (S) [Mass/Vol] 3.9 g/dL Normal 1.5-4.3 [facility] Comment on above: Performed By: #### 1 [id number], 6610562004, 0603339, 67216127, 7717452553 #### [facility] (DEFAULT) [address] [place] [address] 97350 Glucose [Mass/Vol] 112.0 mg/dL Normal 74.0-118.0 [facility] Comment on above: Performed By: #### 1 [id number], 9019448177, 0761235, 28034401, 3070404730 #### [facility] (DEFAULT) [address] [place] [address] 90569 Osmolality [Osmolality] 278 mOsm/L [facility] Comment on above: Performed By: #### 1 [id number], 4303975501, 4183426, 19058680, 2092640889 #### [facility] (DEFAULT) [address] [place] [address] 23480 Potassium [Moles/Vol] 3.4 mmol/L Low 3.6-5.1 [facility] Comment on above: Performed By: #### 1 [id number], 9681454012, 6575266, 78113010, 3741816139 #### [facility] (DEFAULT) [address] [place] [address] 42336 Protein [Mass/Vol] 8.4 g/dL High 6.5-8.1 [facility] Comment on above: Performed By: #### 1 [id number], 4090723641, 2067294, 61217945, 4262383326 #### [facility] (DEFAULT) [address] [place] [address] 35947 Sodium [Moles/Vol] 139.0 mmol/L Normal 136.0-144.0 [facility] Comment on above: Performed By: #### 1 [id number], 3169832476, 3278962, 00533711, 9724221787 #### [facility] (DEFAULT) [address] [place] [address] 35086 Urea nitrogen [Mass/Vol] 12 mg/dL Normal 8-26 [facility] Comment on above: Performed By: #### 1 [id number], 0092251289, 4105392, 49628170, 6789287519 #### [facility] (DEFAULT) [address] [place] [address] 79642 Urea nitrogen/Creatinine [Mass ratio] 16.0 mg/mg Normal 4.6-16.2 [facility] Comment on above: Performed By: #### 1 [id number], 4430286619, 6780969, 99812962, 5192025897 #### [facility] (DEFAULT) [id number] Abdomen/Pelvis w/o Leonard meier 03-22-2020 CT Abdomen/Pelvis w/o Contrast EXAMINATION: CT Abdomen/Pelvis w/o Contrast HISTORY: Flank pain, kidney stone suspected, right-sided flank pain for 4 days COMPARISON: None TECHNIQUE: CT examination of the abdomen and pelvis without IV contrast. Coronal and sagittal reformations were performed. Dose reduction techniques were achieved by using automated exposure control and/or adjustment of mA and/or kV according to patient size and/or use of iterative reconstruction technique. FINDINGS: Abdomen: Visualized lower lung calix appear grossly unremarkable. Views of the liver and spleen fail to demonstrate evidence of focal mass in either organ. Mild fatty infiltration of the liver suggested. In the gallbladder there is mild increased density within the dependent portion which may be artifactually created, sludge and/or gallstones may at least be considered. No evidence of gallbladder wall thickening or pericholecystic fluid. No evidence of cholecystitis. Pancreas appears grossly unremarkable. Adrenal glands appear grossly unremarkable. Stomach appears grossly unremarkable. Bowel loops appear grossly unremarkable. Visualized vascular structures are grossly intact. No evidence of adenopathy in the retroperitoneum. There are a few nonobstructive bilateral renal calculi present. Largest calculus in the right kidney is seen inferiorly measuring 4 mm, largest calculus on the left is noted inferiorly and measures 4 mm. No evidence of ureteral calculi. No obvious renal mass. No evidence of hydronephrosis to suggest obstructive uropathy. PELVIS: No evidence of ureteral dilatation. There is a 3 x 3 mm calculus in the dependent portion of the bladder just to the left of midline, given history of recent right-sided pain, this is assumed to represent calculus which has passed from the right kidney into the bladder. No obvious bladder mass or wall thickening. Prostate gland is grossly within normal limits for size. Perirectal fat planes are grossly intact. Bowel loops appear grossly unremarkable. Visualized vascular structures are intact. No evidence of adenopathy. The appendix is visualized and appears unremarkable. Small fat-filled umbilical hernia without bowel content. Small fat-filled right inguinal hernia. Mild degenerative changes in the visualized lower dorsal spine and the lumbar spine. IMPRESSION: CT abdomen and CT pelvis studies demonstrate bilateral nonobstructive renal calculi. Calculus in the dependent portion of the bladder likely representing a calculus which has passed recently from the right kidney when correlated with history. Small fat-filled umbilical hernia. Small fat-filled right inguinal hernia. Mild fatty infiltration of the liver suggested. Possible sludge and/or gallstones in the gallbladder without wall thickening, no evidence of cholecystitis suggested. Final Dictated by: Tani Villatoro MD Dictated DT/TM: 03/22/20 3:19 Signed (Electronic Signature): Tani Villatoro MD 03/22/20 3:47 pm Technologist: ISAAC Dhillon [facility] ED Clinical Summaryon 2019 ED Clinical Summary [facility] - Emergency Department [address] [place] [address] ED Clinical Summary PERSON INFORMATION Name: MAURO NUNEZ Age: 39 Years Sex: MALE : 1980 MRN: Acct#: Visit Reason: Urinary frequency; URINATION PROBLEMS Arrival: 03/22/2020 12:44:00 Discharge: 03/22/2020 16:15:00 LOS: 000 03:31 Check In: 03/22/2020 12:44:00 Checkout:03/22/2020 16:15:00 Address: [address] [place] [address] PCP: ARMIDA BATISTA PROVIDER INFORMATION Provider Role Assigned Unassigned Armida Jin MD ED Provider 03/22/2020 12:44:58 Radha RN, Ada ED Nurse 03/22/2020 12:45:23 VITALS INFORMATION Vital Sign Triage Latest Temperature Tympanic Temperature Temporal Artery Pulse Rate 88 bpm 80 bpm O2 Sat 96 % 96 % Respiratory Rate 18 br/min 14 br/min Blood Pressure /103 mmHg /103 mmHg MEDICAL INFORMATION Medications Given: Allergy Information: No known allergies PHYSICIAN DOCUMENTATION Patient: MAURO NUNEZ Age: 39 years Sex: MALE : 1980 Associated Diagnoses: Kidney stone Author: Armida Jin MD Basic Information Time seen: Date & time 03/22/2020 16:03:00. History source: Patient. Arrival mode: Private vehicle. History limitation: None. Additional information: Chief Complaint from Nursing Triage Note : Chief Complaint 03/22/2020 12:46 EDT Chief Complaint Frequency, burning and feeling unable to empy bladder. . History of Present Illness This 39-year-old gentleman has a feeling of dysuria, occasional frequency. He had flank pain yesterday but no hematuria. Fever is not been present. Nausea vomiting is not present. He has some low back pain which is chronic and no worse. There is no bowel or other bladder difficulty or urinary retention Review of Systems Constitutional symptoms: no Fatigue, no fever, no chills. Skin symptoms: Negative except as documented in HPI. ENMT symptoms: Negative except as documented in HPI. Respiratory symptoms: Negative except as documented in HPI. Cardiovascular symptoms: Negative except as documented in HPI. Gastrointestinal symptoms: Negative except for documented as above in the HPI as above Genitourinary symptoms: Negative except as documented in HPI. Musculoskeletal symptoms: Negative except as documented in HPI. Low back pain as above Neurologic symptoms: Negative except as documented in HPI. Remainder of 10 systems, all negative except for mentioned above Health Status Allergies: Allergic Reactions (Selected) No known allergies. Medications: (Selected) Documented Medications Documented Toprol-XL 100 mg oral tablet, extended release: 100 mg = 1 tab(s), PO, Daily, 30 tab(s), 0 Refill(s) hydrochlorothiazide- metoprolol 12.5 mg-50 mg oral tablet, extended release: 1 tab(s), PO, Daily, 30 tab(s), 0 Refill(s). Physical Examination CONST: -Extremely heavyset -In no acute distress. -Vitals reviewed. EYES: -EOM intact, KAVON: -Sclera normal and conjunctiva: clear bilaterally. ENT: - Normal pharynx pink and moist. NECK: -Supple ([id number]). CARD: -Rate and rhythm: Regular -Murmurs: No RESP: -Respiratory effort and chest excursion with respirations: Normal -Breath sounds equal bilaterally: Clear -Wheezes: No -Rales: No BACK: -Flank pain: No -Pain on palpation: No ABD: -Distended: No -Bruits: No -Bowel sounds: Normal. -Deep palpation: Non-tender -Organomegaly palpable: No -Abnormal masses: No EXT: Gross appearance and use of all four extremities: Normal SKIN: -Good turgor warm and dry. -Apparent lesions or rashes: No NEURO: -Patient: alert -Oriented to: person, place and time. -Appearance and judgment: appropriate. -Cranial Nerves: Normal. -Speech: Normal Medical Decision Making CT scan reveals a stone in the bladder. There is hematuria but no infection Impression and Plan Diagnosis Kidney stone ([id number] N20.0, Discharge, Medical) Plan Condition: Improved. Disposition: Discharged: Time 03/22/2020 16:05:00, to home. Prescriptions: Launch prescriptions Pharmacy: Pyridium 200 mg oral tablet (Prescribe): 200 mg = 1 tab(s), PO, TID, for 3 day(s), 9 tab(s), 0 Refill(s) Cipro 500 mg oral tablet (Prescribe): 500 mg = 1 tab(s), PO, q12hr, for 3 day(s), 6 tab(s), 0 Refill(s). Patient was given the following educational materials: Kidney Stones, Urinary Tract Infection, Adult. Follow up with: ARMIDA BATISTA Within 3 to 5 days. Counseled: Patient, Regarding diagnosis, Regarding diagnostic results, Regarding treatment plan, Regarding prescription, Patient indicated understanding of instructions. DISCHARGE INFORMATION: Discharge Disposition: Home Discharge Location: Home PATIENT EDUCATION INFORMATION Instructions: Urinary Tract Infection, Adult; Kidney Stones Follow-Up: With: Address: When: ARMIDA BATISTA [address], [facility] [place] [address] [facility] () Within 3 to 5 days DIAGNOSIS: Kidney stone Patient Understands: Yes - Patient/family/careg iver verbalizes understanding of instructions given Comment: [facility] ED Note - Physicianon 2019 ED Note - Physician Patient: MAURO NUNEZ Age: 39 years Sex: MALE : 1980 Associated Diagnoses: Kidney stone Author: Armida Jin MD Basic Information Time seen: Date & time 03/22/2020 16:03:00. History source: Patient. Arrival mode: Private vehicle. History limitation: None. Additional information: Chief Complaint from Nursing Triage Note : Chief Complaint 03/22/2020 12:46 EDT Chief Complaint Frequency, burning and feeling unable to empy bladder. . History of Present Illness This 39-year-old gentleman has a feeling of dysuria, occasional frequency. He had flank pain yesterday but no hematuria. Fever is not been present. Nausea vomiting is not present. He has some low back pain which is chronic and no worse. There is no bowel or other bladder difficulty or urinary retention Review of Systems Constitutional symptoms: no Fatigue, no fever, no chills. Skin symptoms: Negative except as documented in HPI. ENMT symptoms: Negative except as documented in HPI. Respiratory symptoms: Negative except as documented in HPI. Cardiovascular symptoms: Negative except as documented in HPI. Gastrointestinal symptoms: Negative except for documented as above in the HPI as above Genitourinary symptoms: Negative except as documented in HPI. Musculoskeletal symptoms: Negative except as documented in HPI. Low back pain as above Neurologic symptoms: Negative except as documented in HPI. Remainder of 10 systems, all negative except for mentioned above Health Status Allergies: Allergic Reactions (Selected) No known allergies. Medications: (Selected) Documented Medications Documented Toprol-XL 100 mg oral tablet, extended release: 100 mg = 1 tab(s), PO, Daily, 30 tab(s), 0 Refill(s) hydrochlorothiazide- metoprolol 12.5 mg-50 mg oral tablet, extended release: 1 tab(s), PO, Daily, 30 tab(s), 0 Refill(s). Physical Examination CONST: -Extremely heavyset -In no acute distress. -Vitals reviewed. EYES: -EOM intact, KAVON: -Sclera normal and conjunctiva: clear bilaterally. ENT: - Normal pharynx pink and moist. NECK: -Supple ([id number]). CARD: -Rate and rhythm: Regular -Murmurs: No RESP: -Respiratory effort and chest excursion with respirations: Normal -Breath sounds equal bilaterally: Clear -Wheezes: No -Rales: No BACK: -Flank pain: No -Pain on palpation: No ABD: -Distended: No -Bruits: No -Bowel sounds: Normal. -Deep palpation: Non-tender -Organomegaly palpable: No -Abnormal masses: No EXT: Gross appearance and use of all four extremities: Normal SKIN: -Good turgor warm and dry. -Apparent lesions or rashes: No NEURO: -Patient: alert -Oriented to: person, place and time. -Appearance and judgment: appropriate. -Cranial Nerves: Normal. -Speech: Normal Medical Decision Making CT scan reveals a stone in the bladder. There is hematuria but no infection Impression and Plan Diagnosis Kidney stone ([id number] N20.0, Discharge, Medical) Plan Condition: Improved. Disposition: Discharged: Time 03/22/2020 16:05:00, to home. Prescriptions: Launch prescriptions Pharmacy: Pyridium 200 mg oral tablet (Prescribe): 200 mg = 1 tab(s), PO, TID, for 3 day(s), 9 tab(s), 0 Refill(s) Cipro 500 mg oral tablet (Prescribe): 500 mg = 1 tab(s), PO, q12hr, for 3 day(s), 6 tab(s), 0 Refill(s). Patient was given the following educational materials: Kidney Stones, Urinary Tract Infection, Adult. Follow up with: ARMIDA BATISTA Within 3 to 5 days. Counseled: Patient, Regarding diagnosis, Regarding diagnostic results, Regarding treatment plan, Regarding prescription, Patient indicated understanding of instructions. [Electronically Signed on: 03/22/2020 16:06 EDT] Armida Jin MD [Verified on: 03/22/2020 16:06 EDT] Armida Jin MD [facility] ED Note-Nursingon 03-22-2020 ED Note-Nursing Patient arrives with lower back pain for 5 days which has resolved and dysuria for 3 days. Low grade temp of 99.7. States he feels like he is not emptying his bladder after urinating and there is burning. [facility] ED Patient Education Noteon 03-22-2020 ED Patient Education Note Education Materials Obstetrics and Gynecology Urinary Tract Infection, Adult A urinary tract infection (UTI) is an infection of any part of the urinary tract. The urinary tract includes the kidneys, ureters, bladder, and urethra. These organs make, store, and get rid of urine in the body. Your health care provider may use other names to describe the infection. An upper UTI affects the ureters and kidneys (pyelonephritis). A lower UTI affects the bladder (cystitis) and urethra (urethritis). What are the causes? Most urinary tract infections are caused by bacteria in your genital area, around the entrance to your urinary tract (urethra). These bacteria grow and cause inflammation of your urinary tract. What increases the risk? You are more likely to develop this condition if: ? You have a urinary catheter that stays in place (indwelling). ? You are not able to control when you urinate or have a bowel movement (you have incontinence). ? You are female and you: ? Use a spermicide or diaphragm for control. ? Have low estrogen levels. ? Are . ? You have certain genes that increase your risk (genetics). ? You are sexually active. ? You take antibiotic medicines. ? You have a condition that causes your flow of urine to slow down, such as: ? An enlarged prostate, if you are male. ? Blockage in your urethra (stricture). ? A kidney stone. ? A nerve condition that affects your bladder control (neurogenic bladder). ? Not getting enough to drink, or not urinating often. ? You have certain medical conditions, such as: ? Diabetes. ? A weak disease-fighting system (immunesystem). ? Sickle cell disease. ? Gout. ? Spinal cord injury. What are the signs or symptoms? Symptoms of this condition include: ? Needing to urinate right away (urgently). ? Frequent urination or passing small amounts of urine frequently. ? Pain or burning with urination. ? Blood in the urine. ? Urine that smells bad or unusual. ? Trouble urinating. ? Cloudy urine. ? Vaginal discharge, if you are female. ? Pain in the abdomen or the lower back. You may also have: ? Vomiting or a decreased appetite. ? Confusion. ? Irritability or tiredness. ? A fever. ? Diarrhea. The first symptom in older adults may be confusion. In some cases, they may not have any symptoms until the infection has worsened. How is this diagnosed? This condition is diagnosed based on your medical history and a physical exam. You may also have other tests, including: ? Urine tests. ? Blood tests. ? Tests for sexually transmitted infections (STIs). If you have had more than one UTI, a cystoscopy or imaging studies may be done to determine the cause of the infections. How is this treated? Treatment for this condition includes: ? Antibiotic medicine. ? Wzfc-zoq-piqlhvk medicines to treat discomfort. ? Drinking enough water to stay hydrated. If you have frequent infections or have other conditions such as a kidney stone, you may need to see a health care provider who specializes in the urinary tract (urologist). In rare cases, urinary tract infections can cause sepsis. Sepsis is a life-threatening condition that occurs when the body responds to an infection. Sepsis is treated in the hospital with IV antibiotics, fluids, and other medicines. Follow these instructions at home: Medicines ? Take imau-xdm-tsghynz and prescription medicines only as told by your health care provider. ? If you were prescribed an antibiotic medicine, take it as told by your health care provider. Do not stop using the antibiotic even if you start to feel better. General instructions ? Make sure you: ? Empty your bladder often and completely. Do not hold urine for long periods of time. ? Empty your bladder after sex. ? Wipe from front to back after a bowel movement if you are female. Use each tissue one time when you wipe. ? Drink enough fluid to keep your urine pale yellow. ? Keep all follow-up visits as told by your health care provider. This is important. Contact a health care provider if: ? Your symptoms do not get better after 1?2 days. ? Your symptoms go away and then return. Get help right away if you have: ? Severe pain in your back or your lower abdomen. ? A fever. ? Nausea or vomiting. Summary ? A urinary tract infection (UTI) is an infection of any part of the urinary tract, which includes the kidneys, ureters, bladder, and urethra. ? Most urinary tract infections are caused by bacteria in your genital area, around the entrance to your urinary tract (urethra). ? Treatment for this condition often includes antibiotic medicines. ? If you were prescribed an antibiotic medicine, take it as told by your health care provider. Do not stop using the antibiotic even if you start to feel better. ? Keep all follow-up visits as told by your health care provider. This is important. This information is not intended to replace advice given to you by your health care provider. Make sure you discuss any questions you have with your health care provider. Document Released: 07/21/2006 Document Revised: 04/20/2019 Document Reviewed: 04/20/2019 YR.MRKT Interactive Patient Education ? 2019 [employer]. Urology Kidney Stones Kidney stones (urolithiasis) are solid, rock-like deposits that form inside of the organs that make urine (kidneys). A kidney stone may form in a kidney and move into the bladder, where it can cause intense pain and block the flow of urine. Kidney stones are created when high levels of certain minerals are found in the urine. They are usually passed through urination, but in some cases, medical treatment may be needed to remove them. What are the causes? Kidney stones may be caused by: ? A condition in which certain glands produce too much parathyroid hormone (primary hyperparathyroidism) , which causes too much calcium buildup in the blood. ? Buildup of uric acid crystals in the bladder (hyperuricosuria). Uric acid is a chemical that the body produces when you eat certain foods. It usually exits the body in the urine. ? Narrowing (stricture) of one or both of the tubes that drain urine from the kidneys to the bladder (ureters). ? A kidney blockage that is present at (congenital obstruction). ? Past surgery on the kidney or the ureters, such as gastric bypass surgery. What increases the risk? The following factors make you more likely to develop kidney stones: ? Having had a kidney stone in the past. ? Having a family history of kidney stones. ? Not drinking enough water. ? Eating a diet that is high in protein, salt (sodium), or sugar. ? Being overweight or obese. What are the signs or symptoms? Symptoms of a kidney stone may include: ? Nausea. ? Vomiting. ? Blood in the urine (hematuria). ? Pain in the side of the abdomen, right below the ribs (flank pain). Pain usually spreads (radiates) to the groin. ? Needing to urinate frequently or urgently. How is this diagnosed? This condition may be diagnosed based on: ? Your medical history. ? A physical exam. ? Blood tests. ? Urine tests. ? CT scan. ? Abdominal X-ray. ? A procedure to examine the inside of the bladder (cystoscopy). How is this treated? Treatment for kidney stones depends on the size, location, and makeup of the stones. Treatment may involve: ? Analyzing your urine before and after you pass the stone through urination. ? Being monitored at the hospital until you pass the stone through urination. ? Increasing your fluid intake and decreasing the amount of calcium and protein in your diet. ? A procedure to break up kidney stones in the bladder using: ? A focused beam of light (laser therapy). ? Shock waves (extracorporeal shock wave lithotripsy). ? Surgery to remove kidney stones. This may be needed if you have severe pain or have stones that block your urinary tract. Follow these instructions at home: Eating and drinking ? Drink enough fluid to keep your urine clear or pale yellow. This will help you to pass the kidney stone. ? If directed, change your diet. This may include: ? Limiting how much sodium you eat. ? Eating more fruits and vegetables. ? Limiting how much meat, poultry, fish, and eggs you eat. ? Follow instructions from your health care provider about eating or drinking restrictions. General instructions ? Collect urine samples as told by your health care provider. You may need to collect a urine sample: ? 24 hours after you pass the stone. ? 8?12 weeks after passing the kidney stone, and every 6?12 months after that. ? Strain your urine every time you urinate, for as long as directed. Use the strainer that your health care provider recommends. ? Do not throw out the kidney stone after passing it. Keep the stone so it can be tested by your health care provider. Testing the makeup of your kidney stone may help prevent you from getting kidney stones in the future. ? Take rkqv-xwy-pkwjrxi and prescription medicines only as told by your health care provider. ? Keep all follow-up visits as told by your health care provider. This is important. You may need follow-up X-rays or ultrasounds to make sure that your stone has passed. How is this prevented? To prevent another kidney stone: ? Drink enough fluid to keep your urine clear or pale yellow. This is the best way to prevent kidney stones. ? Eat a healthy diet and follow recommendations from your health care provider about foods to avoid. You may be instructed to eat a low-protein diet. Recommendations vary depending on the type of kidney stone that you have. ? Maintain a healthy weight. Contact a health care provider if: ? You have pain that gets worse or does not get better with medicine. Get help right away if: ? You have a fever or chills. ? You develop severe pain. ? You develop new abdominal pain. ? You faint. ? You are unable to urinate. This information is not intended to replace advice given to you by your health care provider. Make sure you discuss any questions you have with your health care provider. Document Released: 10/11/2006 Document Revised: 03/24/2018 Document Reviewed: 03/26/2017 YR.MRKT Interactive Patient Education ? 2019 [employer]. Normal [facility] ED Patient Summaryon 020 ED Patient Summary [facility] - Emergency Department [address] [place] [address] PATIENT DISCHARGE INSTRUCTIONS Patient Information Name: MAURO NUNEZ Age: 39 Years Date of : 1980 Reason For Visit: Urinary frequency; URINATION PROBLEMS Arrival Time: 03/22/2020 12:44:00 Primary Care Physician: ARMIDA BATISTA Attending Physician: Armida Jin MD Comment: Visit Diagnosis: Diagnoses This Visit Kidney stone (N20.0) Urinary frequency ([id number]) Prescription Information: If you have been given a prescription for narcotics, seek immediate medical attention if you have any difficulty breathing or any sudden status changes such as confusion and sleepiness. If you or anyone you know is experiencing suicidal thoughts, mental health, alcohol and/or drug addiction problems; contact the [facility] 17/05 Crisis Hotline -Text 0WGJN gx 502270. If you received any narcotics, sedation, or any other medication that causes drowsiness for the next 24 hours, unless otherwise directed: ? Do not drive a car. ? Do not operate machinery such as power tools, lawn mowers, drills, sewing machines, or stoves ? Avoid alcoholic beverages and drugs for allergies, nerves, or sleep ? Do not make important personal or business decisions or sign any legal documents With: Address: When: ARMIDA BATISTA [address], [place] [address] Business (1) Within 3 to 5 days Medication Information: The exam and treatment you received today in the [facility] Emergency Department were for an urgent problem and are not intended as complete care. It is important for you to follow up with a doctor, nurse practitioner, or physician?s periodicals library assistant for ongoing care. If your symptoms become worse or you do not improve as expected and you are unable to reach your usual health care provider, you should return to the Emergency Department, we are available 24 hours a day. For those patients who have received Radiology results, the interpretation of your X-ray as given to you by our Emergency Department physician is only a preliminary report. The Radiologist will review your films and if there is a change in the diagnosis you will be notified by phone. Please make sure you have provided a working phone number so we can reach you if necessary. In the event that you had a lab culture while you were a patient in the Emergency Department, you will be notified by phone if there is a need to change your antibiotic. Please make sure you have provided a working phone number so we can reach you if necessary. [facility] Emergency Department has provided you with a complete list of medications post discharge. Please inform your central supply clerk/provider of your visit and for further instruction on these medications. Any specific questions regarding your chronic medications and dosages should be discussed with your primary care physician(s) and/or pharmacist. New Medications Printed Prescriptions ciprofloxacin (Cipro 500 mg oral tablet) 1 tab(s) Oral Every 12 hours scheduled time for 3 Days. Refills: 0. phenazopyridine (Pyridium 200 mg oral tablet) 1 tab(s) Oral 3 times a day for 3 Days. Refills: 0. Medications to Continue That Have Not Changed Other Medications hydrochlorothiazide- metoprolol (hydrochlorothiazide -metoprolol 12.5 mg-50 mg oral tablet, extended release) 1 tab(s) Oral every day. metoprolol (Toprol-XL 100 mg oral tablet, extended release) 1 tab(s) Oral every day. Visit Information Allergies: Substance Reaction Symptoms Type Comments No known allergies Drug Vital Signs: Vitals and Measurements this Visit (last charted value for your 03/22/2020 visit) Vital Signs This Visit Temperature Oral: 37.4 DegC Peripheral Pulse Rate: 80 bpm Respiratory Rate: 14 br/min Systolic Blood Pressure: 126 mmHg Diastolic Blood Pressure: 86 mmHg SpO2: 96 % Oxygen Therapy: Room air Measurements This Visit Height/Length Dosin.000 cm Height/Length Estimated: 173.000 cm Weight Dosin.000 kg Weight Estimated: 175.000 kg Problems List: Problem Onset Comments No Problems found Patient Education Urinary Tract Infection, Adult A urinary tract infection (UTI) is an infection of any part of the urinary tract. The urinary tract includes the kidneys, ureters, bladder, and urethra. These organs make, store, and get rid of urine in the body. Your health care provider may use other names to describe the infection. An upper UTI affects the ureters and kidneys (pyelonephritis). A lower UTI affects the bladder (cystitis) and urethra (urethritis). What are the causes? Most urinary tract infections are caused by bacteria in your genital area, around the entrance to your urinary tract (urethra). These bacteria grow and cause inflammation of your urinary tract. What increases the risk? You are more likely to develop this condition if: ? You have a urinary catheter that stays in place (indwelling). ? You are not able to control when you urinate or have a bowel movement (you have incontinence). ? You are female and you: ? Use a spermicide or diaphragm for control. ? Have low estrogen levels. ? Are . ? You have certain genes that increase your risk (genetics). ? You are sexually active. ? You take antibiotic medicines. ? You have a condition that causes your flow of urine to slow down, such as: ? An enlarged prostate, if you are male. ? Blockage in your urethra (stricture). ? A kidney stone. ? A nerve condition that affects your bladder control (neurogenic bladder). ? Not getting enough to drink, or not urinating often. ? You have certain medical conditions, such as: ? Diabetes. ? A weak disease-fighting system (immunesystem). ? Sickle cell disease. ? Gout. ? Spinal cord injury. What are the signs or symptoms? Symptoms of this condition include: ? Needing to urinate right away (urgently). ? Frequent urination or passing small amounts of urine frequently. ? Pain or burning with urination. ? Blood in the urine. ? Urine that smells bad or unusual. ? Trouble urinating. ? Cloudy urine. ? Vaginal discharge, if you are female. ? Pain in the abdomen or the lower back. You may also have: ? Vomiting or a decreased appetite. ? Confusion. ? Irritability or tiredness. ? A fever. ? Diarrhea. The first symptom in older adults may be confusion. In some cases, they may not have any symptoms until the infection has worsened. How is this diagnosed? This condition is diagnosed based on your medical history and a physical exam. You may also have other tests, including: ? Urine tests. ? Blood tests. ? Tests for sexually transmitted infections (STIs). If you have had more than one UTI, a cystoscopy or imaging studies may be done to determine the cause of the infections. How is this treated? Treatment for this condition includes: ? Antibiotic medicine. ? Zulr-xvo-szypurl medicines to treat discomfort. ? Drinking enough water to stay hydrated. If you have frequent infections or have other conditions such as a kidney stone, you may need to see a health care provider who specializes in the urinary tract (urologist). In rare cases, urinary tract infections can cause sepsis. Sepsis is a life-threatening condition that occurs when the body responds to an infection. Sepsis is treated in the hospital with IV antibiotics, fluids, and other medicines. Follow these instructions at home: Medicines ? Take ipms-gaz-jcephmi and prescription medicines only as told by your health care provider. ? If you were prescribed an antibiotic medicine, take it as told by your health care provider. Do not stop using the antibiotic even if you start to feel better. General instructions ? Make sure you: ? Empty your bladder often and completely. Do not hold urine for long periods of time. ? Empty your bladder after sex. ? Wipe from front to back after a bowel movement if you are female. Use each tissue one time when you wipe. ? Drink enough fluid to keep your urine pale yellow. ? Keep all follow-up visits as told by your health care provider. This is important. Contact a health care provider if: ? Your symptoms do not get better after 1?2 days. ? Your symptoms go away and then return. Get help right away if you have: ? Severe pain in your back or your lower abdomen. ? A fever. ? Nausea or vomiting. Summary ? A urinary tract infection (UTI) is an infection of any part of the urinary tract, which includes the kidneys, ureters, bladder, and urethra. ? Most urinary tract infections are caused by bacteria in your genital area, around the entrance to your urinary tract (urethra). ? Treatment for this condition often includes antibiotic medicines. ? If you were prescribed an antibiotic medicine, take it as told by your health care provider. Do not stop using the antibiotic even if you start to feel better. ? Keep all follow-up visits as told by your health care provider. This is important. This information is not intended to replace advice given to you by your health care provider. Make sure you discuss any questions you have with your health care provider. Document Released: 07/21/2006 Document Revised: 04/20/2019 Document Reviewed: 04/20/2019 YR.MRKT Interactive Patient Education ? 2019 [employer]. Kidney Stones Kidney stones (urolithiasis) are solid, rock-like deposits that form inside of the organs that make urine (kidneys). A kidney stone may form in a kidney and move into the bladder, where it can cause intense pain and block the flow of urine. Kidney stones are created when high levels of certain minerals are found in the urine. They are usually passed through urination, but in some cases, medical treatment may be needed to remove them. What are the causes? Kidney stones may be caused by: ? A condition in which certain glands produce too much parathyroid hormone (primary hyperparathyroidism) , which causes too much calcium buildup in the blood. ? Buildup of uric acid crystals in the bladder (hyperuricosuria). Uric acid is a chemical that the body produces when you eat certain foods. It usually exits the body in the urine. ? Narrowing (stricture) of one or both of the tubes that drain urine from the kidneys to the bladder (ureters). ? A kidney blockage that is present at (congenital obstruction). ? Past surgery on the kidney or the ureters, such as gastric bypass surgery. What increases the risk? The following factors make you more likely to develop kidney stones: ? Having had a kidney stone in the past. ? Having a family history of kidney stones. ? Not drinking enough water. ? Eating a diet that is high in protein, salt (sodium), or sugar. ? Being overweight or obese. What are the signs or symptoms? Symptoms of a kidney stone may include: ? Nausea. ? Vomiting. ? Blood in the urine (hematuria). ? Pain in the side of the abdomen, right below the ribs (flank pain). Pain usually spreads (radiates) to the groin. ? Needing to urinate frequently or urgently. How is this diagnosed? This condition may be diagnosed based on: ? Your medical history. ? A physical exam. ? Blood tests. ? Urine tests. ? CT scan. ? Abdominal X-ray. ? A procedure to examine the inside of the bladder (cystoscopy). How is this treated? Treatment for kidney stones depends on the size, location, and makeup of the stones. Treatment may involve: ? Analyzing your urine before and after you pass the stone through urination. ? Being monitored at the hospital until you pass the stone through urination. ? Increasing your fluid intake and decreasing the amount of calcium and protein in your diet. ? A procedure to break up kidney stones in the bladder using: ? A focused beam of light (laser therapy). ? Shock waves (extracorporeal shock wave lithotripsy). ? Surgery to remove kidney stones. This may be needed if you have severe pain or have stones that block your urinary tract. Follow these instructions at home: Eating and drinking ? Drink enough fluid to keep your urine clear or pale yellow. This will help you to pass the kidney stone. ? If directed, change your diet. This may include: ? Limiting how much sodium you eat. ? Eating more fruits and vegetables. ? Limiting how much meat, poultry, fish, and eggs you eat. ? Follow instructions from your health care provider about eating or drinking restrictions. General instructions ? Collect urine samples as told by your health care provider. You may need to collect a urine sample: ? 24 hours after you pass the stone. ? 8?12 weeks after passing the kidney stone, and every 6?12 months after that. ? Strain your urine every time you urinate, for as long as directed. Use the strainer that your health care provider recommends. ? Do not throw out the kidney stone after passing it. Keep the stone so it can be tested by your health care provider. Testing the makeup of your kidney stone may help prevent you from getting kidney stones in the future. ? Take [id number] and prescription medicines only as told by your health care provider. ? Keep all follow-up visits as told by your health care provider. This is important. You may need follow-up X-rays or ultrasounds to make sure that your stone has passed. How is this prevented? To prevent another kidney stone: ? Drink enough fluid to keep your urine clear or pale yellow. This is the best way to prevent kidney stones. ? Eat a healthy diet and follow recommendations from your health care provider about foods to avoid. You may be instructed to eat a low-protein diet. Recommendations vary depending on the type of kidney stone that you have. ? Maintain a healthy weight. Contact a health care provider if: ? You have pain that gets worse or does not get better with medicine. Get help right away if: ? You have a fever or chills. ? You develop severe pain. ? You develop new abdominal pain. ? You faint. ? You are unable to urinate. This information is not intended to replace advice given to you by your health care provider. Make sure you discuss any questions you have with your health care provider. Document Released: 10/11/2006 Document Revised: 03/24/2018 Document Reviewed: 03/26/2017 YR[employer]KT Interactive Patient Education ? 2019 [employer]. Viruses or Bacteria What?s got you sick? Antibiotics only treat bacterial infections. Viral illnesses cannot be treated with antibiotics. When an antibiotic is not prescribed, ask your healthcare professional for tips on how to relieve symptoms and feel better. Usual Cause Illness Viruses Bacteria Antibiotic Needed Cold/Runny Nose NO Bronchitis/Chest Cold (in otherwise healthy children and adults) NO Whooping Cough Yes Flu NO Strep Throat Yes Sore Throat (except strep) NO Fluid in the middle ear (otitis media with effusion) NO Urinary Tract Infection Yes Antibiotics Aren?t Always the Answer www.cdc.gov/getsmart GET SMART Know When Antibiotics Work U.S. Department of Health and Human Services Centers for Disease Control and Prevention June 2014 [facility] Extra Redon 03-22-2020 Tube Collected Yes [facility] Comment on above: Performed By: #### 1 [id number] #### [facility] (DEFAULT) [address] [place] [address] 43388 UA [id number] 03-22-2020 RBC (U) [#/Vol] 5-10 [facility] Comment on above: Order Comment: Urina lysis Microscopic order added on by [employer] Expert Rules system. Performed By: #### 1 [id number], [id number] #### [facility] (DEFAULT) [address] [place] [address] 16692 UA Bacteria None [facility] Comment on above: Order Comment: Urina lysis Microscopic order added on by [employer] Rules system. Performed By: #### 1 [id number], [id number] #### [facility] (DEFAULT) [address] [place] [address] 64778 UA WBC None Seen Normal [facility] Comment on above: Order Comment: Urina lysis Microscopic order added on by [employer] Rules system. Performed By: #### 1 [id number], [id number] #### [facility] (DEFAULT) [address] [place] [address] 52255 UA w Culture if Ind Standard on 03-22-2020 Breakpoint UA Normal [facility] Comment on above: Performed By: #### 1 [id number] #### [facility] (DEFAULT) [address] [place] [address] 44821 Color (U) Yellow Normal [facility] Comment on above: Performed By: #### 1 [id number], [id number] #### [facility] (DEFAULT) [address] [place] [address] 45154 Culture? No Normal [facility] Comment on above: Performed By: #### 1 [id number], [id number] #### [facility] (DEFAULT) [address] [place] [address] 94015 Glucose (U) [Mass/Vol] Negative Normal [facility] Comment on above: Performed By: #### 1 [id number], [id number] #### [facility] (DEFAULT) [address] [place] [address] 60835 Ketones Ql (U) Negative Normal [facility] Comment on above: Performed By: #### 1 [id number], [id number] #### [facility] (DEFAULT) [address] [place] [address] 22351 Micro? Indicated [facility] Comment on above: Performed By: #### 1 [id number], [id number] #### [facility] (DEFAULT) [address] [place] [address] 62493 UA Bilirubin Negative Normal [facility] Comment on above: Performed By: #### 1 [id number], [id number] #### [facility] (DEFAULT) [address] [place] [address] 64013 UA Blood LARGE Abnormal NEGATIVE [facility] Comment on above: Performed By: #### 1 [id number], [id number] #### [facility] (DEFAULT) [address] [place] [address] 39212 UA Clarity CLEAR Normal CLEAR [facility] Comment on above: Performed By: #### 1 [id number], [id number] #### [facility] (DEFAULT) [address] [place] [address] 55285 UA Leuk Est Negative Normal NEGATIVE [facility] Comment on above: Performed By: #### 1 [id number], [id number] #### [facility] (DEFAULT) [address] [place] [address] 82248 UA Nitrite Negative Normal NEGATIVE [facility] Comment on above: Performed By: #### 1 [id number], [id number] #### [facility] (DEFAULT) [address] [place] [address] 00263 UA pH 5.5 Normal 5-8 [facility] Comment on above: Performed By: #### 1 [id number], [id number] #### [facility] (DEFAULT) [address] [place] [address] 70319 UA Protein Negative Normal [facility] Comment on above: Performed By: #### 1 [id number], [id number] #### [facility] (DEFAULT) [address] [place] [address] 47694 UA Spec Grav 1.010 Normal 1.001-1.035 [facility] Comment on above: Performed By: #### 1 [id number], [id number] #### [facility] (DEFAULT) [address] [place] [address] 07702 UA Urobilinogen 0.2 mg/dL Normal 0.2-1.0 [facility] Comment on above: Performed By: #### 1 [id number], [id number] #### [facility] (DEFAULT) [address] [place] [address] 85978 Urine Source Clean Catch Normal [facility] Comment on above: Performed By: #### 1 [id number], [id number] #### [facility] (DEFAULT) [address] [place] [address] 23997 Vital Signs Date Time Vital Sign Value Performing Clinician Facility 01-12-2024 10:190400 Body height 171.45 cm [facility] 01-12-2024 10:19-0400 Body mass index (BMI) [Ratio] 48.9 kg/m2 [facility] 01-12-2024 10:190400 Body weight 143.78 kg [facility] 01-12-2024 10:19-0400 Diastolic blood pressure 88 mm[Hg] [facility] 01-12-2024 10:19-0400 Heart rate 56 /min [facility] 01-12-2024 10:0400 Respiratory rate 18 /min [facility] 01-12-2024 10:19-0400 Systolic blood pressure 138 mm[Hg] [facility] 12-16-2023 17:00-0500 Diastolic blood pressure 66 mm[Hg] Emelia Sniadanko DO Work Phone: [facility] 12-16-2023 17:00-0500 SaO2% (BldA) [Mass fraction] 97 % Emelia Sniadanko DO Work Phone: [facility] 12-16-2023 17:00-0500 Systolic blood pressure 124 mm[Hg] Emelia Sniadanko DO Work Phone: [facility] 12-16-2023 16:21-0500 Body height 172.7 cm Emelia Sniadanko DO Work Phone: [facility] 12-16-2023 16:21-0500 Body mass index (BMI) [Ratio] 47.14 kg/m2 Emelia Sniadanko DO Work Phone: [facility] 12-16-2023 16:21-0500 Body temperature 98.49 [degF] Emelia Sniadanko DO Work Phone: [facility] 12-16-2023 16:21-0500 Body weight 140.62 kg Emelia Sniadanko DO Work Phone: [facility] 12-16-2023 16:21-0500 Heart rate 71 /min Emelia Sniadanko DO Work Phone: [facility] 12-16-2023 16:21-0500 Respiratory rate 18 /min Emelia Barcenas DO Work Phone: [employer] 08-11-2023 15:00-0400 Body height 171.45 cm Armida Batista Other [facility] Other 08-11-2023 15:00-0400 Body mass index (BMI) [Ratio] 48.14 kg/m2 Armida Batista Other [facility] Other 08-11-2023 15:00-0400 Body temperature 98 [degF] Armida Batista Other [facility] Other 08-11-2023 15:00-0400 Body weight 141.52 kg Armida Batista Other [facility] Other 08-11-2023 15:00-0400 Diastolic blood pressure 82 mm[Hg] Armida Batista Other [facility] Other 08-11-2023 15:00-0400 Respiratory rate 18 /min Armida Batista Other [facility] Other 08-11-2023 15:00-0400 SaO2% (BldA) [Mass fraction] 98 % Armida Batista Other [facility] Other 08-11-2023 15:00-0400 Systolic blood pressure 126 mm[Hg] Armida Batista Other [facility] Other 06-10-2023 10:50-0400 Body height 171.45 cm Armida Batista Other [facility] Other 06-10-2023 10:50-0400 Body mass index (BMI) [Ratio] 49.99 kg/m2 Armida Batista Other [facility] Other 06-10-2023 10:50-0400 Body temperature 98.4 [degF] Armida Batista Other [facility] Other 06-10-2023 10:50-0400 Body weight 146.97 kg Armida Batista Other [facility] Other 06-10-2023 10:50-0400 Diastolic blood pressure 86 mm[Hg] Armida Batista Other [facility] Other 06-10-2023 10:50-0400 Respiratory rate 18 /min Armida Batista Other [facility] Other 06-10-2023 10:50-0400 SaO2% (BldA) [Mass fraction] 98 % Armida Batista Other [facility] Other 06-10-2023 10:50-0400 Systolic blood pressure 136 mm[Hg] Armida Batista Other [facility] Other 05-04-2023 12:40-0400 Body height 171.45 cm Armida Batista Other [facility] Other 03-08-2023 15:40-0400 Body height 171.45 cm Libra Blades Other [facility] Other 03-08-2023 15:40-0400 Body mass index (BMI) [Ratio] 49.99 kg/m2 Libra Blades Other [facility] Other 03-08-2023 15:40-0400 Body weight 146.97 kg Libra Blades Other [facility] Other 02-10-2023 15:40-0400 Body height 171.45 cm Armida Batista Other [facility] Other 02-10-2023 15:40-0400 Body mass index (BMI) [Ratio] 51.23 kg/m2 Armida Batista Other [facility] Other 02-10-2023 15:40-0400 Body temperature 98.1 [degF] Armida Batista Other [facility] Other 02-10-2023 15:40-0400 Body weight 150.6 kg Armida Batista Other [facility] Other 02-10-2023 15:40-0400 Diastolic blood pressure 84 mm[Hg] Armida Batista Other [facility] Other 02-10-2023 15:40-0400 Respiratory rate 18 /min Armida Batista Other [facility] Other 02-10-2023 15:40-0400 SaO2% (BldA) [Mass fraction] 97 % Armida Batista Other [facility] Other 02-10-2023 15:40-0400 Systolic blood pressure 132 mm[Hg] Armida Batista Other [facility] Other 01-08-2023 10:50-0400 Body height 171.45 cm Armida Batista Other [facility] Other 01-08-2023 10:50-0400 Body mass index (BMI) [Ratio] 51.23 kg/m2 Armida Batista Other [facility] Other 01-08-2023 10:50-0400 Body temperature 97.8 [degF] Armida Batista Other [facility] Other 01-08-2023 10:50-0400 Body weight 150.6 kg Armida Batista Other [facility] Other 01-08-2023 10:50-0400 Diastolic blood pressure 84 mm[Hg] Armida Batista Other [facility] Other 01-08-2023 10:50-0400 Respiratory rate 18 /min Armida Batista Other [facility] Other 01-08-2023 10:50-0400 SaO2% (BldA) [Mass fraction] 98 % Armida Batisat Other [facility] Other 01-08-2023 10:50-0400 Systolic blood pressure 132 mm[Hg] Armida Batista Other [facility] Other 12-12-2022 10:00-0500 Body height 171.45 cm Sheri Alexandra Other [facility] Other 12-12-2022 10:00-0500 Body mass index (BMI) [Ratio] 52.15 kg/m2 Sheri Alexandra Other [facility] Other 12-12-2022 10:00-0500 Body temperature 99.9 [degF] Sheri Alexandra Other [facility] Other 12-12-2022 10:00-0500 Body weight 153.32 kg Sheri Alexandra Other [facility] Other 12-12-2022 10:00-0500 Diastolic blood pressure 70 mm[Hg] Sheri Ibarramond Other [facility] Other 12-12-2022 10:00-0500 Respiratory rate 18 /min Sheri Alexandra Other [facility] Other 12-12-2022 10:00-0500 SaO2% (BldA) [Mass fraction] 98 % Sheri Alexandra Other [facility] Other 12-12-2022 10:00-0500 Systolic blood pressure 128 mm[Hg] Sheri Ibarramond Other [facility] Other 12-08-2022 10:10-0500 Body height 171.45 cm Armida Batista Other [facility] Other 10-02-2022 10:50-0500 Body height 171.45 cm Armida Batista Other [facility] Other 10-02-2022 10:50-0500 Body mass index (BMI) [Ratio] 58.01 kg/m2 Armida Batista Other [facility] Other 10-02-2022 10:50-0500 Body temperature 97.8 [degF] Armida Batista Other [facility] Other 10-02-2022 10:50-0500 Body weight 170.55 kg Armida Batista Other [facility] Other 10-02-2022 10:50-0500 Diastolic blood pressure 86 mm[Hg] Armida Batista Other [facility] Other 10-02-2022 10:50-0500 Respiratory rate 18 /min Armida Batista Other [facility] Other 10-02-2022 10:50-0500 SaO2% (BldA) [Mass fraction] 97 % Armida Batista Other [facility] Other 10-02-2022 10:50-0500 Systolic blood pressure 136 mm[Hg] Armida Batista Other [facility] Other 08-13-2021 12:10-0400 Body height 171.45 cm Armida Batista Other [facility] Other 08-13-2021 12:10-0400 Body mass index (BMI) [Ratio] 55.55 kg/m2 Armida Batista Other [facility] Other 08-13-2021 12:10-0400 Body temperature 98.3 [degF] Armida Batista Other [facility] Other 08-13-2021 12:10-0400 Body weight 163.3 kg Armida Batista Other [facility] Other 08-13-2021 12:10-0400 Diastolic blood pressure 98 mm[Hg] Armida Batista Other [facility] Other 08-13-2021 12:10-0400 Respiratory rate 20 /min Armida Batista Other [facility] Other 08-13-2021 12:10-0400 SaO2% (BldA) [Mass fraction] 98 % Armida Batista Other [facility] Other 08-13-2021 12:10-0400 Systolic blood pressure 138 mm[Hg] Armida Batista Other [facility] Other Encounters Encounter Date Encounter Type Care Provider Facility Start: 01-12-2024 End: 01-12-2024 ambulatory [facility] Work Phone: Start: 01-12-2024 End: 01-12-2024 Patient encounter procedure [facility] [place] Work Phone: Start: 12-20-2023 Non-patient / Non-visit [facility] Work Phone: Start: 12-16-2023 End: 12-16-2023 Emergency department patient visit EMELIA BARCENAS [facility] Start: 12-16-2023 End: 12-16-2023 Emergency department patient visit Emelia Barcenas DO Work Phone: [facility] Emergency Department Comment on above: Acute upper respirat ory infection (Primary Dx) Start: 12-09-2023 Non-patient / [facility]-visit [facility] Work Phone: Start: 10-12-2023 End: 10-12-2023 ambulatory Armida Batista Other [facility] Other Start: 10-12-2023 Telephone encounter Armida Batista [facility] [place] Start: 08-11-2023 End: 08-11-2023 ambulatory Armida Batista Other [facility] Other Start: 08-11-2023 Office outpatient vi sit 25 minutes Armida Batista [facility] [place] Start: 08-11-2023 Telephone encounter Armida Batista [facility] [place] Start: 07-23-2023 End: 07-23-2023 ambulatory Armida Batista Other [facility] Other Start: 07-23-2023 Telephone encounter Armida Batista [facility] [place] Start: 07-14-2023 End: 07-14-2023 ambulatory Armida Batista Other [facility] Other Start: 07-14-2023 Telephone encounter Armida Batista [facility] [place] Start: 07-07-2023 End: 07-07-2023 ambulatory Armida Batista Other [facility] Other Start: 07-07-2023 Telephone encounter Armida Batista [facility] [place] Start: 06-10-2023 End: 06-10-2023 ambulatory Armida Batista Other [facility] Other Start: 06-10-2023 Office outpatient vi sit 15 minutes Armida Batista [facility] [place] Start: 05-06-2023 End: 05-06-2023 ambulatory Armida Batista Other [facility] Other Start: 05-06-2023 Telephone encounter Armida Batista [facility] [place] Start: 05-04-2023 End: 05-04-2023 ambulatory Armida Batista Other [facility] Other Start: 05-04-2023 Telephone encounter Armida Batista [facility] [place] Start: 03-08-2023 End: 03-08-2023 ambulatory Libra Evans Other [facility] Other Start: 03-08-2023 Office outpatient ne w 45 minutes Libra Evans [facility] [place], operated by [facility] Start: 03-05-2023 End: 03-05-2023 ambulatory Armida Batista Other [facility] Other Start: 03-05-2023 Telephone encounter Armida Batista [facility] [place] Start: 03-03-2023 End: 03-03-2023 ambulatory Armida Batista Other [facility] Other Start: 03-03-2023 Telephone encounter Armida Batista [facility] [place] Start: 02-25-2023 End: 02-25-2023 ambulatory Armida Batista Other [facility] Other Start: 02-25-2023 Telephone encounter Armida Batista [facility] [place] Start: 02-22-2023 End: 02-22-2023 ambulatory Armida Batista Other [facility] Other Start: 02-22-2023 Telephone encounter Armida Batista [facility] [place] Start: 02-15-2023 End: 02-16-[address] ARMIDA BATISTA [facility] Other Start: 02-15-2023 Telephone encounter Armida Batista [facility] [place] Start: 02-10-2023 End: 02-10-2023 ambulatory Armida Batista Other [facility] Other Start: 02-10-2023 Office outpatient vi sit 15 minutes Armida Batista [facility] [place] Start: 02-09-2023 End: 02-10-[address] ARMIDA BATISTA Facility: Start: 02-08-2023 End: 02-08-2023 ambulatory Armida Batista Other [facility] Other Start: 02-08-2023 Telephone encounter Armida Batista [facility] [place] Start: 01-08-2023 End: 01-08-2023 ambulatory Armida Batista Other [facility] Other Start: 01-08-2023 Office outpatient vi sit 25 minutes Armida Batista [facility] [place] Start: 12-14-2022 End: 12-14-2022 ambulatory Armida Batista Other [facility] Other Start: 12-14-2022 Telephone encounter Armida Batista [facility] [place] Start: 12-12-2022 End: 12-12-2022 ambulatory Sheri Alexandra Other [facility] Other Start: 12-12-2022 Office outpatient vi sit 15 minutes Sheri Alexandra [facility] [place] Start: 12-08-2022 End: 12-08-2022 ambulatory Armida Batista Other [facility] Other Start: 12-08-2022 Telephone encounter Armida Batista [facility] [place] Start: 11-30-2022 End: 11-30-2022 ambulatory Armida Batista Other [facility] Other Start: 11-30-2022 Telephone encounter Armida Batista [facility] [place] Start: 10-02-2022 Office outpatient vi sit 15 minutes Armida Batista [facility] [place] Start: 10-02-2022 Telephone encounter Armida Batista [facility] [place] Start: 10-02-2022 End: 10-03-[address] ARMIDA BATISTA [facility] Other Start: 09-08-2021 End: 09-08-2021 ambulatory Armida Batista Other [facility] Other Start: 09-08-2021 Telephone encounter Armida Batista [facility] [place] Start: 08-22-2021 Telephone encounter Armida Batista [facility] [place] Start: 08-13-2021 Office outpatient vi sit 15 minutes Armida Batista [facility] [place] Procedures Date Procedure Procedure Detail Performing Clinician Start: 12-16-2023 Radiologic exam ches t single view Emelia Barcenas DO Work Phone: Start: 12-16-2023 COVID-19 & INFLUENZA COMBO Emelia Barcenas DO Work Phone: Plan of Treatment Date Care Activity Detail Author Start: 05-25-2023 Influenza vaccination Flu vaccine (# 1) [facility] Start: 2020 Lipid panel Lipids [facility] Start: 2015 Diabetes screen Diabetes screen ALECIA BEYER Start: 1999 DTaP/Tdap/Td vaccine (1 - Tdap) DTaP/Tdap/Td vaccine (1 - Tdap) [facility] Start: 1998 Hepatitis C screening Hepatitis C sc reen [facility] Start: 1995 [facility] Start: 1992 Depression Monitoring Depression Mon itoring [facility] Start: 1981 Varicella vaccine (1 of 2 - 2-dose childhood series) Varicella vaccine (1 of 2 - 2-dose childhood series) [facility] Start: 02-06-1981 COVID-19 Vaccine (#1) COVID-19 Vacci ne (#1) [facility] Start: 1980 Hepatitis B vaccine (1 of 3 - 3-dose series) Hepatitis B vaccine (1 of 3 - 3-dose series) [facility] Immunizations Immunization Date Immunization Notes Care Provider Fa cash 08-13-2021 influenza, seasonal, injectable Armida Batista Other [facility] [facility] [employer] Other 02-10-2021 COVID-19 Vaccine Moderna - Documentation Purposes Only Armida Batista Other [facility] 01-13-2021 COVID-19 Vaccine Moderna - Documentation Purposes Only Armida Batista Other [facility] NEGATED: Highlighted row has not occurred!08-13-2021 influenza, seasonal, injectable Armida Batista Other [facility] Other Payers Date Payer Category Payer Medicaid [id number] 2021 Unknown [id number] 2018 Unknown [id number] 2.1 [id number] 1980 Unknown [id number] 1980 Unknown [id number] 1980 Unknown [id number] 1980 Unknown [id number] 1959 Unknown [id number] 2.1 [id number] Medicaid [employer] [id number] Self-pay Self Pay [id number] Unknown [employer] SHRUTHI [id number] Social History Date Type Detail Facility Unknown if ever smoked [facility] [employer] Other Start: 12-16-[address] [facility] [employer] Other Start: 12-16-2023 End: 01-12-2024 Tobacco smoking status NHIS Never smoked tobacco [facility] Start: 12-16-2023 Tobacco use and exposure Smokeless tobacco non-user [employer] Phone: Start: 12-16-2023 Alcohol intake Ex-drinker (finding) [employer] Phone: Start: 12-16-2023 History of Social function [employer] Phone: Start: 1980 Sex Assigned At Not on file [facility] [employer] Work Phone: Start: 1980 Sex Assigned At Male F [facility] Clinical Notes 08-13-2021 to 12-16-2023 Discharge InstructionsAttachments Note Date & Type Note Facility 12-16-2023 Hospital Discharg e instructions Emelia Barcenas DO - 12/16/2023 5:06 PM EST Take Tylenol or Motrin for any fevers or pain. Follow up with your PCP in the next 3 days for follow up. Return to the ER if you develop worsening symptoms, increased trouble breathing, inability to keep fluids down, or if you have any other concerns. The following attachments cannot be sent through Care Everywhere.URI (Upper Respiratory Infection) (Kyrgyz)documented in this encounter VIRIDIANA Broderick Phone: 08-11-2023 Evaluation note Encounter Date Diagnosis Assessment Notes Jul, Anxiety (ICD-10 - F41.9) [facility] Other 10-18-2023 Evaluation note* Encounter Date Diagnosis Assessment Notes Treatment Notes Treatment Clinical Notes Jul, Essential hypertension (ICD-10 - I10) He returns to see his blue line trimmer on 09-01-23. He presents with blood pressure readings that he has taken on his own that seem to be improving with his weight loss. He has lost 15 pounds in the last three weeks. He voices that the blue line trimmer told him that his bradycardia was not concerning as long as it is consistent. Jul, Hyperglycemia (ICD-10 - R73.9) Discussed blood sugar results with patient today. Glucose is 96. HgA1C is normal at 5.3. Jul, Anemia (ICD-10 - D64.9) His HGB is 13.8. Iron is 86. Ferritin is 360. Will continue to monitor. Jul, Anxiety (ICD-10 - F41.9) He voices that when the Buspirone dose was increased his anxiety increased and he began to see things. He stopped taking the medication about a month ago and is waiting to see a counselor in [place]. He uses the Ativan if needed. It works well when he needs it. An OARRS report was printed and reviewed, no discrepancies noted. Frequent appointments needed due to addiction potential of medication. Pain inventory sheet completed and reviewed if opiod medication given. Pain contract is on file if pertinent. Patient will have office visits every three months for evaluation or sooner if needed. I discussed addiction potential of medication with the patient. Discussed with the patient and provided a treatment plan including the use of non-opiod analgesics and non-pharmacologica l intervention with patient if treated for pain. We have discussed realistic benefits and known risks of opiod/controlled therapy and the expected benefits for both pain and function. These benefits outweigh the risks. Patient has been counselled on the dangers of combining opiods/controlled prescriptions with alcohol or other sedatives and counseled on the safe storage and disposal of opiods/controlled prescriptions. Do not drive or operate heavy machinery after taking opiod/controlled medication. I have verified that no current substance abuse treatments are being prescribed. Jul, Weight loss (ICD-10 - R63.4) He has lost 115.5 pounds and continues to work on weight loss. He is doing a keto-sirena diet. He does not eat enough fat to be on keto. He loves venezuelan fries but has not had one this year. He tries to avoid carbs. If he screws up he will eat [employer]. He eats more of an Atkins diet, low carbs and more protein. He is encouraged to continue with what he is doing as it is working well. He rides his bike for exercise. He voices that certain parts of his body have started to stick out since he began losing weight. We discussed him building up muscle to avoid losing lean muscle. Add resistance training. If it is easy move up to something heavier. He should continue to eat plenty of protein daily to keep his muscle mass. Jul, Fatty liver (ICD-10 - K76.0) Discussed cholesterol results with patient today. Total is 182. HDL is 41. LDL is 122. Triglycerides are 97. VLDL is 19. These are very good results. He is to continue with his lifestyle and dietary changes. Jul, Elevated PSA (ICD-10 - R97.20) Total PSA is 1.19. Free PSA is 0.34. % Free PSA is 29. No sign of prostate cancer at this time. He voices that he just found out that his dad has prostate cancer. 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 Free testosterone is 87.5. Sex hormone binding globulin is 35.9 which is good. Jul, Nocturia (ICD-10 - R35.1) [facility] Other 09-20-2023 Evaluation note* Encounter Date Diagnosis Assessment Notes Treatment Notes Treatment Clinical Notes Jun, Anxiety (ICD-10 - F41.9) [facility] Other 09-13-2023 Evaluation note* Encounter Date Diagnosis Assessment Notes Treatment Notes Treatment Clinical Notes Jun, Anxiety (ICD-10 - F41.9) [facility] Other 08-17-2023 Evaluation note* Encounter Date Diagnosis Assessment Notes Treatment Notes Treatment Clinical Notes May, Anxiety (ICD-10 - F41.9) He only uses the Ativan twice a month, voices that he has not used one in over a week. He should continue to use the medication as little as needed. He does not want to take an SSRI but feels he needs to be on a daily medication. I did recommend that he try Buspar (generic). This medication is used for anxiety and not depression, no known terminal makeup operator issues with this medication. Will start him on a low dose to prevent dizziness and we can titrate the dose as needed. He is agreeable to trying this medication. I would like him to take 1/2 tablet twice a day for 7 days and then increase to 1 tablet twice a day until he runs low. When he has 3-4 days left of that prescription he is to call and we will likely increase his dose again. May, Essential hypertension (ICD-10 - I10) He voices that he did recently see a blue line trimmer for evaluation. I did independently review his office visit note from 05-03-23 with him today. He was taken off Norvasc (generic) and his blood pressure continues to be around 130/80'sirena. He had an echocardiogram done which was reviewed. He is keeping a diary of his blood pressure readings. May, Weight loss (ICD-10 - R63.4) He voices that he has not had a burger or fries since last year. He continues with the keto diet, when he is anxious he likes to eat but if he eats more then he eats more of the keto foods. [facility] Other 07-11-2023 Evaluation note* Encounter Date Diagnosis Assessment Notes Treatment Notes Treatment Clinical Notes Apr, Anxiety (ICD-10 - F41.9) [facility] Other 07-11-2023 Evaluation note* Encounter Date Diagnosis Assessment Notes Treatment Notes Treatment Clinical Notes Apr, Anxiety (ICD-10 - F41.9) He admits that his anxiety level has been elevated recently but this does not seem to be out of the ordinary for him. He takes the Ativan once or twice a month normally but this month (April) he has already taken it two times. Apr, Lumbar pain (ICD-10 - M54.50) He saw Dr. Evans who told him structurally everything looked good. He had a wide gap in his vertebrae which was good. He was told that he should do strengthening exercises and to get good shoes to support the spinal column. He is going to go to a specific shoe store in [place] to purchase these shoes. He does not have PT scheduled yet, and states that he has not had to move as many things at work, so he has been feeling better. He is not sure if he will do the PT or not due to his work schedule. He will have more availability at the end of May (2022). Apr, Essential hypertension (ICD-10 - I10) He saw Dr. Paredes a blue line trimmer who ordered an echocardiogram. He voices that he will return to see him again in August (2022). He was taken off Amlodipine. He checks his blood pressure every other day. Normally his blood pressure is in the 130/85 range but if he is having a high anxiety day he may notice that his blood pressure reading is higher. Apr, Weight loss (ICD-10 - R63.4) This morning he weighed 314 pounds on his home scale. He voices that he is doing the keto diet, but is eating no garbage and not eating sugar. I did recommend that he continue with what he is doing as it is working well. He is trying to change the way he eats overall, he understands that if he considers what he is doing a diet he will gain all his weight back. Apr, Other 12:46 PM - 12:56 PM [facility] Other 05-15-2023 Evaluation note* Encounter Date Diagnosis Assessment Notes Treatment Notes Treatment Clinical Notes February, Lumbar pain (ICD-10 - M54.50) [facility] Other 05-10-2023 Evaluation note* Encounter Date Diagnosis Assessment Notes Treatment Notes Treatment Clinical Notes February, Essential hypertension (ICD-10 - I10) [facility] Other 04-24-2023 Evaluation note* Encounter Date Diagnosis Assessment Notes Treatment Notes Treatment Clinical Notes Jan, Lumbar pain (ICD-10 - M54.50) [facility] Other 04-19-2023 Evaluation note* Encounter Date Diagnosis Assessment Notes Treatment Notes Treatment Clinical Notes Jan, Lumbar pain (ICD-10 - M54.50) He voices that if his back hurts he has pain down both of his legs. If he stands he tends to get low back pain across his low back. It is possible that this is muscular or related to his SI joint. If he bends forward it will progressively get tighter. He has light numbness on the outside of his legs that only goes to his knee and not past his knees. He also gets what he describes as fire sensation that also stops at his knees. I would like to order x-rays of his low back to rule out abnormalities. I did recommend that we treat him with a Medrol dose pack to calm things down and decrease inflammation. He voices that he does not want to take medication but will pick it up and have it on hand, if he does take it then he should call and let me know so we can document that he is taking it. Do not take any NSAID medication while on the Medrol dose tori. Side effects/risks/benefi ts of medication were reviewed. He is encouraged to continue with his weight loss and his keto lifestyle. If he gets pain that shoots past his knee he needs to let me know. Jan, Weight loss (ICD-10 - R63.4) He voices that he was at a standstill with his weight loss but in the last couple of weeks he did begin losing weight again. He continues with his keto diet and is encouraged to continue with what he is doing. Jan, History of kidney stones (ICD-10 - Z87.442) His KUB x-ray showed kidney/ureter- right: 9 mm stone within inferior pole of kidney- smaller stone within superior pole. Kidney/ureter- left: 8 mm stone within inferior pole of left kidney. Pelvis: No visible ureteral stones. Bowel: No abnormal dilation or deviation. Bones: No acute abnormality. Other: Negative. No abnormal gaseous collections. Jan, Urinary frequency (ICD-10 - R35.0) His urinalysis was reviewed today, urine culture did not show any sign of infection. Jan, Other He voices that randomly he will get tingling on his face, it is not always in the same place on his face. He voices that this could be coming from his neck. We discussed that this could also be coming from anxiety. He is to continue to monitor. [facility] Other 04-17-2023 Evaluation note* Encounter Date Diagnosis Assessment Notes Treatment Notes Treatment Clinical Notes Jan, Back pain (ICD-10 - M54.9) Jan, History of kidney stones (ICD-10 - Z87.442) [facility] Other 03-17-2023 Evaluation note* Encounter Date Diagnosis Assessment Notes Treatment Notes Treatment Clinical Notes Dec, Hyperglycemia (ICD-10 - R73.9) Discussed blood sugar results with patient today. Glucose is 101. HgA1C is 5.5. He is to continue with the keto diet, avoid intake of carbs and sugars. Stay active. Dec, Essential hypertension (ICD-10 - I10) Blood pressure is controlled, continue with above medication. Dec, Anemia (ICD-10 - D64.9) His Iron is 56. Ferritin is 541. B12 is 355. Folic acid is 8.0. He is not anemic at this time. He does not take any iron at this time. Dec, Fatty infiltration of liver (ICD-10 - K76.0) We discussed his cholesterol results today. Total is 166. HDL is 31. LDL is 100. Triglycerides are 174. VLDL is 35. I expeced his triglycerides to be better controlled with him being on the keto diet. I would like to repeat lab in six months to see where his levels are at and he agrees with this. Dec, Elevated ferritin (ICD-10 - R79.89) His ferritin level is elevated (541) but this was drawn after he had COVID which may have caused this. I will repeat his ferritin level in six months. Dec, Elevated PSA (ICD-10 - R97.20) He does not know of any family history of prostate cancer. His PSA level is 1.50. This was the first time that his level was checked. I explained to him that I would have expected his PSA level to be lower than this at his age, I would like to check this again in six months. He agrees with this. There are many things that can irritate the prostate. He has an exercise bike but does not ride as much as he should. He does sit alot. In six months he is to avoid ejaculation and no riding bicycle for 48 hours prior to the PSA level being drawn. Dec, Anxiety (ICD-10 - F41.9) He has only needed to use one Ativan (generic) since we last spoke. He is to continue to use this as needed. An OARRS report was printed and reviewed, no discrepancies noted. Frequent appointments needed due to addiction potential of medication. Pain inventory sheet completed and reviewed if opiod medication given. Pain contract is on file if pertinent. Patient will have office visits every three months for evaluation or sooner if needed. I discussed addiction potential of medication with the patient. Discussed with the patient and provided a treatment plan including the use of non-opiod analgesics and non-pharmacologica l intervention with patient if treated for pain. We have discussed realistic benefits and known risks of opiod/controlled therapy and the expected benefits for both pain and function. These benefits outweigh the risks. Patient has been counselled on the dangers of combining opiods/controlled prescriptions with alcohol or other sedatives and counseled on the safe storage and disposal of opiods/controlled prescriptions. Do not drive or operate heavy machinery after taking opiod/controlled medication. I have verified that no current substance abuse treatments are being prescribed. 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 Hodges in the past. His testosterone level is 377 which is good. Losing weight will help to improve his testosterone level. Dec, Weight loss (ICD-10 - R63.4) He has lost 44 pounds since Sep) by following the keto diet. He does follow a regular diet two days a week to help him sustain the diet, and on those days he may eat bread or rice. He is to continue with what he is doing as it is working well. His TSH is normal at 2.190. Dec, Other His urinalysis showed that he was dry, he admits that he is not drinking as much water as he usually does, he normally drinks 2 bottles at work and has only been drinking 1. He will try to increase to 2 bottles again. He has a history of kidney stones, and his urine did show calcium oxalate crystals. This is another reason for him to push water daily. [facility] Other 02-18-2023 Evaluation note* Encounter Date Diagnosis Assessment Notes Treatment Notes Treatment Clinical Notes Nov, Contact with and (suspected) exposure to other viral communicable diseases (ICD-10 - Z20.828) Nov, COVID-19 (ICD-10 - U07.1) Discharge Instructions for COVID-19 (Suspected or Confirmed ) material was printed Drink plenty fluids, get plenty of rest. Take Tylenol or Motrin as needed for aches pains or fevers. You must quarantine for 5 days after the onset of your symptoms of COVID. Follow-up with your family physician if no improvement in 2 to 3 days. [facility] Other 02-14-2023 Evaluation note* Encounter Date Diagnosis Assessment Notes Treatment Notes Treatment Clinical Notes Nov, Anxiety (ICD-10 - F41.9) He has only taken one Ativan since he was given the prescription. He took the Ativan the day he went to the ER (11/21/22) he waited almost an hour before he went to the ER but once it kicked in he did begin to feel better. He was given Celexa at the ER but did not take it. His stress at work is better. We discussed the Celexa and the side effects/risks/benef its of medication today. He became angry with Prozac and I suspect that the same would happen with Celexa. He is not going to take it. He does not feel he would need anything on a daily basis. He feels he should take the Ativan more quickly if he needs it instead of waiting. If he is able to distract his brain then he should, but if he is down the rabbit hole then he should take the Ativan. He agrees with this. The only other daily medication we could discuss is BuSpar but I would like him to see how things go for the next few months. If he finds he is using the Ativan several times a week then we should discuss the BuSpar. He is in agreement. Nov, Weight loss (ICD-10 - R63.4) He has done well with his diet and is doing well, he has lost 20 pounds since last seen. He would like to have his thyroid checked. 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 Normally he may have this occur once every 3-6 months but on 11/21/22 he had it happen many times so he went to the ER for evaluation. He was told everything was normal, but when he looked on his patient portal he found that the EKG showed borderline T abnormalities. I did advise him that an EKG from 11-04-2018 showed nonspecific T wave abnormalities. The one done on 11-21-22 was independently reviewed, I would say that his EKG does not look worrisome. Reassurance was given. His QT interval was well within normal limits. He voices understanding. 9:34 AM - 9:50 AM [facility] Other 02-01-2023 History general Narrative - Reported* Type Description Date Medical History High Blood Pressure Medical History Hx of Anxiety in 20's-no meds ta carlos Medical History Fatty liver infiltrate Medical History ASHA Medical History COVID 11/2022 Surgical History [facility], bertha stern off 2015 [facility] Other 02-01-2023 History general Narrative - Reported* Type Description Date Medical History High Blood Pressure Medical History Hx of Anxiety in 20's-no meds ta carlos Medical History Fatty liver infiltrate Medical History ASHA Medical History COVID 11/2022 Medical History chronic depression Medical History anxiety Medical History obesity [facility] Other 12-09-2022 NotePROCEDURE: XR SHOULDER LT 2V or > COMPARISON: None. HISTORY: Pain of left shoulder joint FINDINGS: BONES:No fracture, acute abnormality, or significant arthropathy. SOFT TISSUES:Negative. No visible soft tissue swelling. EFFUSION:None visible. OTHER: Negative. IMPRESSION: No acute abnormality Electronically authenticated by: ARMIDA HERRERA Date: 2022-10-02 12:40[facility]12-09-2022 Evaluation note* Encounter Date Diagnosis Assessment Notes Treatment Notes Treatment Clinical Notes Sep, Shoulder pain, left (ICD-10 - M25.512) He voices that his left shoulder began to bother him about three weeks ago. He denies any specific injury but admits he has had to lift alot of things recently. He has had some tingling in his left shoulder. He denies any chest pain with activity or exertion. The pain is only related to use of the arm. Sometimes at night his arm will become very hot for about an hour and then go away, this usually occurs after he has had the pain. If he notices when he walks up stairs his arm hurts then he should let me know right away, ER sooner if needed or concerns. He has some tightness when moving the arm on exam. It does not appear that he has torn anything yet. I would like him to obtain an xray of the left shoulder to evaluate further. He can call for the results. I did recommend PT for at least a one time visit. He is agreeable, an order is provided. Sep, Paresthesia of arm (ICD-10 - R20.2) We discussed that this could be irritation from the shoulder causing this. He can do chin tuck exercises to help calm the muscles down to help this issue. Take five to ten minutes to allow himself to relax and calm things down. I do not feel this is coming from his neck. Sep, Anxiety (ICD-10 - F41.9) He admits his anxiety has been elevated recently due to all that has been going on at work. He took Prozac in the past which did not work for him. He was given Ativan in 2018. He would like to have Ativan on hand to use if needed. He voices that he had some at home from 2019 and took two tablets in the last month and it helped. The work project he is working on has made him very anxious. I will provide him with a refill but he has to be seen every three months. Side effects/risks/benefi ts of medication were reviewed. Frequent appointments needed due to addiction potential of medication. An OARRS report was reviewed, no discrepancies noted. [facility] Other 10-29-2021 Evaluation note* Encounter Date Diagnosis Assessment Notes Treatment Notes Treatment Clinical Notes Jul, Essential hypertension (ICD-10 - I10) Jul, Chest pain (ICD-10 - R07.9) [facility] Other 10-20-2021 Evaluation note* Encounter Date Diagnosis Assessment Notes Treatment Notes Treatment Clinical Notes Jul, Chest pain (ICD-10 - R07.9) He voices that he had slept on his back because his shoulder was bothering him and he thinks this is what hurt his chest. He did go to the ER for evaluation because of the chest pain that he had. He describes the pain as if he had been struck by a lightening bolt. He was told that the chest x-ray and EKG he had done at the hospital were normal. I am going to order a Cardiolyte stress test to rule out abnormalities. If his insurance denies the stress test we may order a Coronary Calcium Score scan which he can pay morgan for. Jul, Essential hypertension (ICD-10 - I10) He voices that he is taking all of his medications daily as directed. Jul, Weight loss (ICD-10 - R63.4) Since 08-06-21 he has lost 9 pounds by doing the Keto diet. He is going to be 250 pounds by spring 2021. He is encouraged to continue with what he is doing. Once his weight has plateaued we can order blood work to see where his cholesterol levels are at. Jul, Anxiety (ICD-10 - F41.9) He voices that he does get alot of anxiety. We discussed that chest pain is a sign of anxiety. Jul, Other Provided him wi th a note stating he can return to work on 08-18-21 [facility] Other Evaluation noteNo InformationNort [facility] Other Evaluation note* Diagnosis Acute upper respiratory infection- Primary Acute upper respiratory infections of unspecified site documented in this encounter VIRIDIANA Work Phone: evaluation note* Author Armida Batista [facility] Authored January 12, 2024 11: 28am The above note written by __ _Darryn Baptiste____ acting as human recorder, note dictated by Dr. Hudson .I performed the above HPI, ROS, and Examination. I formulated and dictated the treatment plan and was present for entire encounter. Armida Batista D.O. [facility] Work Phone: History general Narrative - Reported* Type Description Date Medical History High Blood Pressure Medical History Hx of Anxiety in -no meds ta carlos Medical History Fatty liver infiltrate Medical History ASHA Surgical History [facility], bertha les ion off 2015 [facility] Other History general [facility] - [facility] Other Summary Purpose Family History Relationship Condition Age at Onset Recorded Date/T regina father History of malignant neoplasm of prostate Unknown Malignant neoplasm Unknown grandparent Unknown Not Specified Hypertension Unknown Advance Directives Advance Directive Response Recorded Date/ Time Advance Directives No January 09 9:09am Reason for Referral Reason appt consult to nataliia ko low pulse/dizziness/HTN Diagnosis 1 Essential hypertensi on (I10) Referral Organization [facility] Referring Provider First Name Armida Referring Provider Last Name Lester Referring Provider Specialty Family Prac cindy Referred Organization [facility] Referred Address [address], [place],[address] Referred Provider Specialty Cardiology Referral Priority Routine General Notes Libra Bronson 03/03/2023 10:32:49 AM > referral faxed to [facility] [place] at [phone] with TE message, last visit note, EKG report, ER and EKG from 10/2022, Coronary Calcium report and insurance cards. pt understands he will be contacted to schedule this appt. Reason appt consult for a bnormal MRI lumbar spine/L4-L5 disc protrusion Diagnosis 1 Lumbar pain (M54.50) Diagnosis 2 Abnormal MRI, lumbar spine (R93.7) Referral Organization [facility] [employer] Referring Provider First Name Armida Referring Provider Last Name Lester Referring Provider Specialty Family Prac cindy Referred Organization [facility] Referred Provider Libra Evans Referred Address [address],[address] Referred Provider Specialty Neurological Surgery Referral Priority Routine General Notes Libra Bronson 02/23/2023 02:26:53 PM > referral sent p2p with MRI report. pt understands he will be contacted to schedule this appt. Chief Complaint and Reason for Visit Chief Complaint Amb Documentation Dizziness Reason for Visit Anemia Anxiety Cervical pain Dizziness Ecchymosis Facial pain Muscle tension pain Additional Source Comments (unrecognized sect ion and content) No Status Records FoundNo Status Records FoundNo Status Records FoundNo Status Records Found INFORMATION SOURCE (unrecogn ized section and content) DATE CREATED AUTHOR 03/29/2020 [facility] DATE CREATED AUTHOR AUTHOR'S ORGANIZ ATION 09/07/2021 [facility] DATE CREATED AUTHOR AUTHOR'S ORGANIZ ATION 02/20/2023 [facility] DATE CREATED AUTHOR AUTHOR'S ORGANIZ ATION 12/24/2023 [facility] REASON FOR VISIT (unrecogniz ed section and content) Reason Comments Chest Congestion Nasal Congestion Care Teams (unrecognized sec tion and content) Lens Generator Relationship Specialty Start Date End Date Dr. Armida Batista [address] [place], [place] Physician Family Medicine 12/16/23 Team Status: Active Member Role Status Dates Armida Batista DO Primary Care Provider Active Team Status: Active Member Role Status Dates Armida Batista DO Primary Care Provide r, Attending Provider Active Start: December 09, 2023 Team Status: Active Member Role Status Dates Armida Batista DO Primary Care Provider Active S tart: December 20, 2023 Darryn Baptiste LPN Attending Provider Active St art: December 20, 2023 Team Status: Inactive Member Role Status Dates Armida Batista DO Primary Care Provide r, Attending Provider Active Start: January 12, 2024 End: January 12, 2024 Goals (unrecognized section and content) Goals may be documented in a n alternate section FOR RECORDS PERTAINING TO PATIENTS WHO ARE OR HAVE BEEN ENROLLED IN A CHEMICAL DEPENDENCY/SUBSTANCEABUSE PROGRAM, SOME INFORMATION MAY BE OMITTED. This clinical summary was aggregated from multiple sources. Caution should be exercised in using it in the provision of clinical care. This summary normalizes information from multiple sources, and as a consequence, information in this document may materially change the coding, format and clinical context of patient data. In addition, data may be omitted in some cases. CLINICAL DECISIONS SHOULD BE BASED ON THE PRIMARY CLINICAL RECORDS. [facility] [employer] [facility]. provides no warranty or guarantee of the accuracy or completeness of information in this document.
[2024-02-13 08:04] LABS: Internal Control Within Normal Limits; Strep A Antigen Screen Positive
[2024-02-13 08:12] VITALS: BP 140/92; PULSE 68; O2SAT 97
== END 2024-02-13 08:14 | disposition home or self-care (01) ==
PROVIDERS: Emergency Provider Emergency Medicine; PCP Family Medicine
DX: J02.0 Streptococcal pharyngitis (principal); Z79.899 Other long term (current) drug therapy
CPT/HCPCS: 87070; 87150; 87186; 87880; 99283

== ENCOUNTER 2024-12-19 11:48 | Outpatient (OUT) | payer OTHER, SELFPAY ==
--- OUTSIDE RECORDS SUMMARY | 2024-12-19 12:05 | XMS_ITS | CCD ---
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 Name Role Phone Armida Batista Unavailable Sheri Alexandra Unavailable LESTER, DR HUFFMAN Primary Care Unavailable GIRVIN, DR HUFFMAN Admitting Unavailable GIRJIM, DR HUFFMAN Attending Unavailable GIRVIN, DR HUFFMAN Consulting Unavailable ZIEBER, DR BEATRICE Baker Consulting Unavailable GIRVIN, DR HUFFMAN Admitting Unavailable GIRVIN, DR HUFFMAN Attending Unavailable GIRVIN, DR HUFFMAN Consulting Unavailable GIRVIN, DR HUFFMAN Primary Care Unavailable PINEY FLATS, DR ARMIDA Maldonado Consulting Unavailable GIRVIN, DR HUFFMAN Primary Care Unavailable GIRVIN, DR HUFFMAN Admitting Unavailable GIRVIN, DR HUFFMAN Attending Unavailable GIRVIN, DR HUFFMAN Consulting Unavailable CAMERON, DR BEATRICE Baker Consulting Unavailable Libra Evans Unavailable Unavailable Primary Care Provider UnavailEMELIA Sheridan Attending Unavailable KELIN DOMINGUEZ Attending Unavailable Armida Batista DO Primary Care Provider Armida Batista DO Attending Provider Slim Dick MD Referring Provider ADALBERTO BYRNE Attending UnavailARMIDA Friend Referring Unavailable ARMIDA BATISTA Primary Care Unavailable Armida Batista Admitting Unavailable Armida Batista Attending Unavailable Slim Dick Referring Unavailable Armida Batista Primary Care Unavailable ARMIDA BATISTA Primary Care Unavailable ARMIDA BATISTA Primary Care Unavailable MARY TRAMMELL Attending Unavailable ARMIDA BATISTA Primary Care Unavailable MARY GARIBAY Attending Unavailable ARMIDA BATISTA Referring Unavailable ARMIDA BATISTA Primary Care Unavailable ARMIDA BATISTA Referring Unavailable ARMIDA BATISTA Primary Care Unavailable ARMIDA BATISTA Referring Unavailable ARMIDA BATISTA Primary Care Unavailable ARMIDA BATISTA Referring Unavailable ARMIDA BATISTA Primary Care Unavailable Armida Batista DO Primary Care Provider Allergies Allergy Classification Reported Allergen(s) Allergy Type Date of Onset Reaction(s) Facility (20 sources) prozac- caused rage Propensity to adverse reactions Unknown Anxa Other (20 sources) B12 - caused rage Propensity to adverse reactions Unknown Anxa Other (7 sources) Sertraline Drug Allergy made angry Anxa Other (3 sources) busPIRone Drug Allergy night terrors / increased anxiety Anxa Other Medications Current Medications Medication Drug Class(es) Dates Sig (Normalized) Sig (Original) [id number] 200 actuat albuterol 0.09 mg/actuat metered dose inhaler (6 sources) beta2-Adrenergic Agonist Start: 12-13-2023 take 2 puff(s) by inhalation every four hours as needed for wheezing albuterol sulfate HFA (PROVENTIL;VENTOL IN;PROAIR) 108 (90 Base) MCG/ACT inhaler Inhale 2 puffs into the lungs every 4 hours as needed for Shortness of Breath or Wheezing 0 12/13/2023 Active Start: 12-13-2023 take 1 puff(s) by in halation four times daily as needed for wheezing Albuterol Sulfate 90 mcg/actuation HFA aerosol inhaler Active 2 PUFF INHALATION Four times daily as needed for shortness of breath or wheezing 8.5 December 13, 2023 12:00am busPIRone hydrochloride 5 mg oral tablet (4 sources) Start: 06-10-2023 take 1 tablet by mouth every twelve hours busPIRone HCl 5 MG 1 tablet Orally Twice a day May, Active Start: 06-10-2023 take 1 tablet by rahat th every twelve hours busPIRone HCl 10 MG 1 tablet Orally Twice a day for 30 days May, Active cholecalciferol 0.125 mg oral capsule (4 sources) Vitamin D Start: 03-27-2024 take 1 capsule by mouth once daily Cholecalciferol (Vitamin D3) 125 mcg (5,000 unit) capsule Active 125 MCG PO Daily March 26, 2024 11:00pm cholecalciferol, vitamin D3, (VITAMIN D3 ORAL) (3 sources) take 5000 [IU] by mouth in the morning cholecalciferol, vitamin D3, (VITAMIN D3 ORAL) Take 5,000 Units by mouth in the morning. Active Co Q 10 (20 sources) Co Q 10 Active hydroCHLOROthiazide 25 mg oral tablet (20 sources) Thiazide Diuretic Start: 12-15-2024 take 1 tablet by mouth once daily Hydrochlorothiazide 25 mg tablet Active 25 MG PO Daily December 15, 2024 12:36pm Start: 06-05-2024 End: 12-15-2024 take 1 tablet by mouth once daily Hydrochlorothiazide 25 mg tablet Discontinued 0 .ROUTE .COMPLEX November 27, 2024 8:46am December 15, 2024 12:37pm TAKE 1 TABLET BY MOUTH EVERY DAY Start: 03-27-2024 End: 06-05-2024 take 1 tablet by mouth once daily Hydrochlorothiazide 25 mg tablet Discontinued 25 MG PO Daily March 27, 2024 10:51am June 05, 2024 11:01am Start: 02-21-2024 End: 03-27-2024 take 1 tablet by mouth once daily Hydrochlorothiazide 25 mg tablet Discontinued 0 .ROUTE .COMPLEX February 21, 2024 9:50am March 27, 2024 10:52am take 1 tablet by mouth once daily Start: 01-12-2024 End: 02-21-2024 take 1 tablet by mouth once daily Hydrochlorothiazide 25 mg tablet Discontinued 1 TAB PO Daily January 11, 2024 11:00pm February 21, 2024 9:50am FreeTextSig: take 1 tablet by mouth once daily; Note: Source Status: Taking; Provider: Lester Huffman ( ) meclizine hydrochloride 25 mg oral tablet (3 sources) Antiemetic Start: 03-01-2019 take 1 tablet by mouth every twelve hours methylPREDNISolone 4 mg oral tablet (8 sources) Corticosteroid Start: 02-10-2023 methylPREDNISolone 4 MG as directed Orally with food for 6 days Jan, Active 24 hr metoprolol succinate 100 mg extended release oral tablet (20 sources) beta-Adrenergic [place] Start: 12-15-2024 take 1 tablet by mouth once daily Metoprolol Succinate 100 mg tablet extended release 24 hr Active 100 MG PO Daily December 15, 2024 12:37pm Start: 09-29-2024 End: 12-15-2024 take 1 tablet by mouth once daily Metoprolol Succinate 100 mg tablet extended release 24 hr Discontinued 0 .ROUTE .COMPLEX September 29, 2024 8:11am December 15, 2024 12:37pm TAKE 1 TABLET BY MOUTH EVERY DAY Start: 03-27-2024 End: 09-29-2024 take 1 tablet by mouth once daily Metoprolol Succinate 100 mg tablet extended release 24 hr Discontinued 100 MG PO Daily March 27, 2024 10:51am September 29, 2024 8:11am Start: 03-21-2024 End: 03-27-2024 take 1 tablet by mouth once daily Metoprolol Succinate 100 mg tablet extended release 24 hr Discontinued 0 .ROUTE .COMPLEX March 21, 2024 9:44am March 27, 2024 10:52am take 1 tablet by mouth once daily Start: 03-21-2024 End: 03-27-2024 take 1 tablet by mouth once daily Metoprolol Succinate Discontinued 0 .ROUTE .COMPLEX March 21, 2024 10:44am March 27, 2024 11:52am take 1 tablet by mouth once daily Start: 12-20-2023 End: 03-21-2024 take 1 tablet by mouth once daily Metoprolol Succinate 100 mg tablet extended release 24 hr Discontinued 0 .ROUTE .COMPLEX December 20, 2023 1:40pm March 21, 2024 9:44am take 1 tablet by mouth once daily Start: 12-20-2023 End: 03-21-2024 take 1 tablet by mouth once daily Metoprolol Succinate Discontinued 0 .ROUTE .COMPLEX December 20, 2023 2:40pm March 21, 2024 10:44am take 1 tablet by mouth once daily Start: 12-20-2023 take 1 tablet by rahat th once daily Metoprolol Succinate Active 0 .ROUTE .COMPLEX December 20, 2023 2:40pm take 1 tablet by mouth once daily Start: 12-20-2023 End: 12-20-2023 take 1 tablet by mouth once daily Metoprolol Succinate 100 mg tablet extended release 24 hr Discontinued 1 TAB PO Daily December 20, 2023 12:00am December 20, 2023 1:41pm FreeTextSig: take 1 tablet by mouth once daily; Note: Source Status: Taking; Refills: 3; Qty: 30 Tablet; Provider: Lester Huffman ( ) take 1 tablet by rahat th every twenty-four hours in the morning metoprolol succinate XL (TOPROL-XL) 100 mg 24 hr tablet Take 1 tablet (100 mg total) by mouth in the morning. Active take 1 tablet by rahat th once daily metoprolol succinate (TOPROL XL) 100 MG extended release tablet Take 1 tablet by mouth daily 0 Active omega 6-okc-bjz-fish oil (Fish OiL) 300-1,000 mg capsule (3 sources) omega 3-dha-epa- fish oil (Fish OiL) 300-1,000 mg capsule Take by mouth daily. Active potassium chloride 10 meq extended release oral capsule (8 sources) Start: 10-03-2024 take 1 capsule by mouth once daily in the morning potassium chloride (KLOR-CON SPRINKLE) 10 MEQ CR capsule TAKE 1 CAPSULE BY MOUTH EVERY DAY IN THE MORNING 90 capsule 3 10/03/2024 Active Start: 09-03-2023 take 1 tablet by rahat th once daily Potassium Chloride 10 mEq tablet extended release Active 10 MEQ PO Daily March 26, 2024 11:00pm Potassium Chloride 10 MEQ PACK (1 source) Start: 09-03-2023 take 10 mEq by mouth once daily Potassium Chloride 10 MEQ PACK Take 10 mEq by mouth daily 0 09/03/2023 Active ubidecarenone 300 mg oral capsule (9 sources) Start: 01-12-2024 Coenzyme Q10 ( Co Q-10) 300 mg capsule Active 300 MG PO Daily January 11, 2024 11:00pm take 10 capsules by mouth once in the morning coenzyme Q10 200 mg capsule Take 200 mg by mouth in the morning. Active take 1 capsule by mouth once giorgi [...] 1 tablet by mouth once daily Not-Taking azithromycin 250 mg oral tablet (16 sources) Macrolide Antimicrobial Start: 03-06-2024 End: 03-27-2024 take 2 tablets by mouth once daily Azithromycin (Zithromax Z-Maynor) 250 mg tablet Discontinued 250 MG PO Daily 6 March 05, 2024 11:00pm March 27, 2024 10:42am start on day 2 of therapy Start: 12-13-2023 End: 01-12-2024 Azithromycin 250 mg tablet D iscontinued 0 PO .COMPLEX December 13, 2023 12:00am January 12, 2024 9:24am For 250 mg dose pack: take 500 mg today (day 1), then 250 mg for 4 days (days 2-5) PO Start: 12-13-2023 End: 01-12-2024 Azithromycin Discontinued 0 PO .COMPLEX December 13, 2023 1:00am January 12, 2024 10:24am For 250 mg dose pack: take 500 mg today (day 1), then 250 mg for 4 days (days 2-5) PO Start: 12-15-2022 Azithromycin 2 50 MG 2 tablets on day 1 Orally then take 1 tablet daily on days 2-5 for 5 days Nov, Not-Taking Calcium & Magnesium Carbonat es (3 sources) Calcium & Magnes ium Carbonates Not-Taking clotrimazole 10 mg oral lozenge (4 sources) Azole Antifungal Start: 03-27-2024 End: 08-11-2024 take 10 mg by mouth five times daily Clotrimazole 10 mg marisela Discontinued 10 MG PO Five times daily 35 7 March 26, 2024 11:00pm August 11, 2024 8:09am 24 hr desvenlafaxine succinate 25 mg extended release oral tablet (4 sources) Serotonin and Norepinephrine Reuptake Inhibitor Start: 03-27-2024 End: 08-11-2024 take 1 tablet by mouth once daily Desvenlafaxine Succinate 25 mg tablet extended release 24 hr Discontinued 25 MG PO Daily March 26, 2024 11:00pm August 11, 2024 8:10am doxycycline hyclate 100 mg oral capsule (8 sources) Tetracycline-class Drug Start: 02-29-2024 End: 03-27-2024 take 1 capsule by mouth twice daily Doxycycline Hyclate 100 mg capsule Discontinued 100 MG PO Twice daily 14 7 February 29, 2024 9:22am March 27, 2024 10:42am hydrocortisone acetate 25 mg rectal suppository (5 sources) Corticosteroid Start: 01-12-2024 End: 03-27-2024 Hydrocortisone Acetate 25 mg suppository Discontinued MG NE January 11, 2024 11:00pm March 27, 2024 10:42am FreeTextSig: unwrap and insert 1 suppository Rectal rectally twice a day x6 days; Note: Source Status: Start; Refills: 0; Provider: Lester Whitehead LORazepam 0.5 mg oral tablet (20 sources) Benzodiazepine Start: 01-12-2024 End: 12-15-2024 take 1 tablet by mouth every twelve hours as needed Lorazepam 0.5 mg tablet Discontinued 0.5 MG PO Every 12 hours as needed March 27, 2024 10:54am July 11, 2024 2:29pm Start: 11-28-2018 take 1 tablet by rahat th every twelve hours as needed Ativan 0.5 MG 1 tablet Orally q12 hrs prn for 7 days Nov, Active take 1 tablet by rahat th every six hours as needed for anxiety LORazepam (ATIVAN) 0.5 mg tablet Take 1 tablet (0.5 mg total) by mouth every 6 (six) hours as needed for anxiety. Active take 1 tablet by rahat th every eight hours as needed LORazepam (ATIVAN) 0.5 MG tablet Take 1 tablet by mouth every 8 hours as needed. Max Daily Amount: 1.5 mg 0 Active tiZANidine 4 mg oral tablet (5 sources) Central alpha-2 Adrenergic Agonist Start: 01-12-2024 End: 03-27-2024 Tizanidine (Zanaflex) 4 mg tablet Discontinued 4 MG PO .COMPLEX January 11, 2024 11:00pm March 27, 2024 10:43am 4 mg orally q8-12 hrs; Vitamin B12 1000 MCG (6 sources) Start: 04-14-2019 Start: 04-14-2019 take 1 tablet by rahat th once daily, then take 1 tablet by mouth every other day Vitamin B12 1000 MCG 1 tablet Orally qd x7 days then take 1 tab qod Mar, Not-Taking Start: 03-13-2019 Start: 03-13-2019 Vitamin B12 10 00 MCG 1 tablet Orally wed-February, Not-Taking Problems Active Problems Problem Classification Problem Date Documented Date Episodic/Chronic Abdominal pain (1 source) Unspecified abdominal pain; Translations: [Unspecified abdominal pain] Onset: 10-24-2024 Episodic Anxiety disorders (20 sources) Anxiety; Translations: [Anxiety disorder, unspecified] Onset: 04-03-2019 Resolved: 08-13-2021 Chronic Calculus of urinary tract (7 sources) Personal history of urinary calculi; Translations: [Calculus of kidney] Onset: 02-14-2023 Episodic Cardiac dysrhythmias (6 sources) Tachycardia; Translations: [Tachycardia, unspecified] Onset: 09-01-2024 08-11-2024 Episodic Conditions associated with dizziness or vertigo (11 sources) Dizziness; Translations: [Dizziness and giddiness] Onset: 03-23-2023 01-12-2024 Episodic Deficiency and other anemia (5 sources) Anemia, unspecified; Translations: [Anemia, unspecified] Episodic Deficiency and other anemia (5 sources) Anemia; Translations: [Anemia, unspecified] 01-12-2024 Episodic Diabetes mellitus without complication (3 sources) Hyperglycemia, unspecified Episodic Essential hypertension (20 sources) Essential hypertension; Translations: [Essential (primary) hypertension] Onset: 08-13-2021 Resolved: 08-22-2021 Chronic Genitourinary symptoms and ill-defined conditions (5 sources) Frequency of micturition; Translations: [Nocturia] Onset: 10-24-2024 Episodic Headache; including migraine (7 sources) Pain in face; Translations: [Facial pain] 01-12-2024 Episodic Hemorrhoids (2 sources) Hemorrhoids; Translations: [Unspecified hemorrhoids] 12-15-2024 Episodic Immunizations and screening for infectious disease (20 sources) Contact with and (suspected) exposure to other viral communicable diseases; Translations: [Exposure to sexually transmissible disorder] Episodic Malaise and fatigue (3 sources) Other fatigue Episodic Mood disorders (2 sources) Mood disorder; Translations: [Unspecified mood [affective] disorder] Onset: 12-14-2023 12-14-2023 Chronic Mycoses (5 sources) Candidiasis of mouth; Translations: [Candidal stomatitis] 03-27-2024 Episodic Nonspecific chest pain (10 sources) Chest pain, unspecified; Translations: [Chest pain] Onset: 08-13-2021 Resolved: 08-22-2021 Episodic Nutritional deficiencies (6 sources) Cobalamin deficiency; Translations: [Deficiency of other specified B group vitamins] 03-27-2024 Episodic Other aftercare (3 sources) Other long-term (current) drug therapy Episodic Other circulatory disease (5 sources) Ecchymosis; Translations: [Hemorrhage, not elsewhere classified] 01-12-2024 Episodic Other circulatory disease (2 sources) Hemorrhage, not elsewhere classified; Translations: [Other specified disorders of circulatory system] 01-12-2024 Episodic Other connective tissue disease (5 sources) Muscle tension pain; Translations: [Myalgia, unspecified site] 01-12-2024 Episodic Other connective tissue disease (2 sources) Myalgia, unspecified site; Translations: [Myalgia and myositis, [...] Chronic Other nutritional; endocrine; and metabolic disorders (3 sources) Obesity; Translations: [Obesity, unspecified] 08-11-2024 Chronic Other nutritional; endocrine; and metabolic disorders (2 sources) Obesity, unspecified; Translations: [Obesity, unspecified] 08-11-2024 Chronic Other nutritional; endocrine; and metabolic disorders (8 sources) Abnormal weight loss; Translations: [Loss of weight] Onset: 08-13-2021 Resolved: 08-13-2021 Episodic Other nutritional; endocrine; and metabolic disorders (1 source) Weight decreased; Translations: [Abnormal weight loss] 02-21-2025 Episodic Other screening for suspected conditions (not mental disorders or infectious disease) (6 sources) Encounter for screening for malignant neoplasm [...] Spondylosis; intervertebral disc disorders; other back problems (15 sources) Dorsalgia, unspecified; Translations: [Neck pain] Onset: 02-09-2023 Episodic Unclassified (3 sources) LOW BACK PAIN, UNSPECIFIED; Translations: [LOW BACK PAIN, UNSPECIFIED] Onset: 02-20-2023 Unclassified (1 source) Low back pain, unspecified; Translations: [Low back pain, unspecified] Onset: 10-31-2024 Unclassified (1 source) High BP Onset: 07-12-2024 Past or Other Problems Problem Classification Problem Date Documented Da te Episodic/Chronic Other lower respiratory disease (1 source) Shortness of breath; Translations: [Shortness of breath] Onset: 03-23-2023 Episodic Other lower respiratory disease (4 sources) Dyspnea; Translations: [Shortness of breath] Onset: 03-23-2023 09-18-2024 Episodic Other non-traumatic joint disorders (5 sources) Pain in left shoulder; Translations: [PAIN IN LEFT SHOULDER] Onset: 10-02-2022 Episodic Unclassified (5 sources) Lumbar pain M54.50 Unclassified (1 source) LOW BACK PAIN, UNSPECIFIED; Translations: [LOW BACK PAIN, UNSPECIFIED] Onset: 02-15-2023 Viral infection (1 source) COVID-19 Results Test Name Value Interpretation Reference Range Facility URINALYSISon 10-31-2024 Bilirubin Ql (U) Negative Normal NEG [facility] Comment on above: Performed By: #### C BCA, CMP #### [facility] ([id number]) [address] [place] [address], [place] [address] BLOOD/HGB Small Abnormal NEG [facility] Comment on above: Performed By: #### C BCA, CMP #### [facility] ([id number]) [address] [place] [address], [place] [address] Color (U) YELLOW Normal YELLOW [facility] Comment on above: Performed By: #### C BCA, CMP #### [facility] ([id number]) [address] [place] [address] [place] [address] Glucose Ql (U) Negative Normal NEG [facility] Comment on above: Performed By: #### C BCA, CMP #### [facility] ([id number]) [address] [place] [address] [place] [address] Ketones Ql (U) Negative Normal NEG [facility] Comment on above: Performed By: #### C NAVARRO, CMP #### [facility] ([id number]) [address] [place] [address] [place] [address] Leukocyte esterase Test strip Ql (U) Negative Normal NEG [facility] Comment on above: Performed By: #### C NAVARRO, CMP #### [facility] ([id number]) [address] [place] [address], [place] [address] MUCOUS PRESENT Abnormal NONE [facility] Comment on above: Performed By: #### C BCA, CMP #### [facility] ([id number]) [address] [place] [address], [place] [address] Nitrite Ql (U) Negative Normal NEG [facility] Comment on above: Performed By: #### C BCA, CMP #### [facility] ([id number]) [address] [place] [address] [place] [address] pH (U) 5.5 [pH] Normal 5.0-8.5 [facility] Comment on above: Performed By: #### C NAVARRO, CMP #### [facility] ([id number]) [address] [place] [address] Protein Ql (U) Negative Normal NEG [facility] Comment on above: Performed By: #### C NAVARRO, CMP #### [facility] ([id number]) [address] [place] [address] R.B.CELLS 5 /hpf Normal 0-5 [facility] Comment on above: Performed By: #### C NAVARRO, CMP #### [facility] ([id number]) [address] [place] [address] Specific gravity (U) [Rel density] 1.020 Normal 1.003-1.035 [facility] Comment on above: Performed By: #### C NAVARRO, CMP #### [facility] ([id number]) [address] [place] [address] SQUAMOUS EPITHELIUM <1 Normal 0-5 [facility] Comment on above: Performed By: #### C NAVARRO, CMP #### [facility] ([id number]) [address] [place] [address] TURBIDITY CLEAR Normal CLEAR [facility] Comment on above: Performed By: #### C BCA, CMP #### [facility] ([id number]) [address] [place] [address] Urobilinogen (U) [Mass/Vol] mg/dL Normal <1.1 [facility] Comment on above: Performed By: #### C BCA, CMP #### [facility] ([id number]) [address] [place] [address] W.B.CELLS 4 /hpf Normal 0-5 [facility] Comment on above: Performed By: #### C BCA, CMP #### [facility] ([id number]) [address] [place] [address] URINE CULTUREon 10-31-2024 Bacteria identified Cx Nom (U) CULTURE RESULTS NO GROWTH AT <1000 CFU/mL Normal [facility] Comment on above: Performed By: #### C BCA, [facility] #### [facility] ([id number]) [address] [place] [address] US RETROPERITONEAL LIMITEDon 10-31-2024 US RETROPERITONEAL LIMITED US RETROPERITONEAL LIMITED US RETROPERITONEAL LIMITED HISTORY: Hematuria, nephrolithiasis COMPARISON: CT abdomen and pelvis 10/24/2024 TECHNIQUE: Grayscale and color Doppler sonographic images of the bilateral kidneys performed. FINDINGS: Right kidney: * 11.6 x 6.4 x 6.6 cm * Cortex: Preserved with normal echogenicity. * Twinkle artifact likely reflects nonobstructive nephrolithiasis. No hydronephrosis. Left kidney: * 11.3 x 6.7 x 6.8 cm * Cortex: Preserved with normal echogenicity. * No hydronephrosis or calculi. IMPRESSION: * Right renal twinkle artifact likely reflects nonobstructive nephrolithiasis, better seen on CT dated 10/24/2024. * No sonographic evidence of left renal nephrolithiasis noting however that an 8 mm nonobstructive left inferior pole stone was seen on CT dated 10/24/2024. Approved by Larry Acosta MD on 10/31/2024 9:56 AM I, Seble Sr MD have personally reviewed the image(s) and agree with and/or edited the report Finalized by Seble Sr MD on 10/31/2024 11:38 AM Normal [facility] XR SPINE LUMBAR 2 OR 3 VWSon 10-31-2024 XR SPINE LUMBAR 2 OR 3 VWS XR SPINE LUMBAR 2 OR 3 VWS CLINICAL INFORMATION: Lumbar back pain TECHNIQUE: XR SPINE LUMBAR 2 OR 3 VWS 3 views lumbar spine were obtained. There is no lumbar malalignment or compression deformity. Mild to moderate degenerative changes noted. Endplates intact. Sacral ala unremarkable. IMPRESSION: Mild to moderate lumbar degenerative changes. Finalized by Kin Montesinos MD on 10/31/2024 8:24 AM Normal [facility] CT ABDOMEN AND PELVIS WO CON Ton 10-24-2024 CT ABDOMEN AND PELVIS WO CONT CT ABDOMEN AND PELVIS WO CONT CLINICAL INFORMATION: Abdominal/flank pain, stone suspected. TECHNIQUE: CT Abdomen and Pelvis without intravenous contrast. All CT scans at this facility use dose modulation, iterative reconstruction, and/or weight based dosing when appropriate to reduce radiation dose to as low as reasonably achievable. COMPARISON: 07/23/2023 FINDINGS: Limited images the lung bases are clear. There are bilateral nonobstructive renal calculi. No hydronephrosis or obvious ureteral calculus. No free intraperitoneal fluid seen. Bowel is nondistended. Right inguinal hernia contains only fat. The appendix is air-filled and normal in caliber. Small periumbilical hernia contains only fat. Noncontrast enhanced liver, spleen, pancreas, and adrenals are unremarkable. Osseous structures appear intact. IMPRESSION: Nonobstructive bilateral renal calculi. Finalized by Kin Montesinos MD on 10/24/2024 3:11 PM Normal [facility] URINE CULTUREon 10-24-2024 Bacteria identified Cx Nom (U) CULTURE RESULTS NO GROWTH AT <1000 CFU/mL Normal [facility] Comment on above: Performed By: #### C BCA, CMP #### [facility] ([id number]) [address] [place] [address] URN MACROSCOPIC NURon 2023 BILIRUBIN SOREN Negative Normal NEG [facility] Comment on above: Performed By: #### C BCA, CMP #### [facility] ([id number]) [address] [place] [address]12[address] BLOOD/HGB SOREN MODERATE Abnormal NEG [facility] Comment on above: Performed By: #### C BCA, CMP #### [facility] ([id number]) [address] [place] [address] 65983 GLUCOSE SOREN Negative Normal NEG [facility] Comment on above: Performed By: #### C BCA, CMP #### [facility] ([id number]) [address] [place] [address] [place] [address] KETONES SOREN Negative Normal NEG [facility] Comment on above: Performed By: #### C BCA, CMP #### [facility] ([id number]) [address] [place] [address] [place] [address] LEUKOCYTE ESTERASE SOREN Negative Normal NEG [facility] Comment on above: Performed By: #### C BCA, CMP #### [facility] ([id number]) [address] [place] [address] [place] [address] NITRITE SOREN Negative Normal NEG [facility] Comment on above: Performed By: #### C BCA, CMP #### [facility] ([id number]) [address] [place] [address] 20664 PH SOREN 7.0 Normal 5.0-8.5 [facility] Comment on above: Performed By: #### C BCA, CMP #### [facility] ([id number]) [address] [place] [address] [place] [address] PROTEIN SOREN Negative Normal NEG [facility] Comment on above: Performed By: #### C NAVARRO, CMP #### [facility] ([id number]) [address] [place] [address] [place] [address] SPECIFIC GRAVITY SOREN 1.020 Normal 1.003-1.035 [facility] Comment on above: Performed By: #### C BCA, CMP #### [facility] ([id number]) [address] [place] [address], [place] [address] UROBILINOGEN SOREN 0.2 eu/dL Normal <1.1 [facility] Comment on above: Performed By: #### C BCA, CMP #### [facility] ([id number]) [address] [place] [address] [place] [address] STR cardiac stress/regularon 09-02-2024 STR cardiac stress/regular [facility] [place] [id number] Cardiac Stress Test Signed Patient: Mauro Nunez MR#: [id number] : 1980 Acct:[id number] Age/Sex: 44 / M ADM Date: 09/01/24 Loc: Room: Type: [facility] Attending Dr: Armida Batista DO Copies to: DO Yrn Hollis MD, [facility] Ordering Provider: Armida Batista DO Date of Service: 09/01/24 STR/STR cardiac stress/regular: R07.9 - Chest pain, unspecified ORDERED BY: Armida Batista DO INDICATION: A 44-year-old patient with chest pain. Resting ECG revealed normal sinus rhythm with a rate of 69 beats per minute. Nonspecific ST-T changes were noted during rest. Resting blood pressure 128/86 mmHg. The patient was exercised on a Romeo protocol for 6 minutes and 32 seconds, achieving maximum heart rate of 171 beats per minute, which represented 97% of predicted maximum heart rate and a workload of 7.8 METS. Blood pressure davidson to 110/84 mmHg. The test ended due to legs fatigue. During exercise, no diagnostic ST segment abnormalities were noted. There were slight changes from baseline ST segment abnormality, which did not meet the diagnostic criteria. There was no chest pain reported by the patient and no cardiac arrhythmias were seen. The patient demonstrated appropriate hemodynamic response to exercise with normal heart recovery and achieved Swift treadmill score of 7+. CONCLUSION: 1. Normal graded exercise tolerance test after completing 6 minutes and 32 seconds on a Romeo protocol and achieving 97% of predicted maximum heart rate and workload of 7.8 METS. 2. Appropriate hemodynamic response to exercise with normal heart recovery and achievement of Swift treadmill score of 7+, which is favorable. No previous studies are available for comparison. Transcribed By: NTS 09/03/24 1341 Dictated By: Yrn No MD, [facility] 09/02/24 1356 Signed By: 09/22/24 1000 Normal [facility] CBC AND AUTO DIFFon 07-19-20 ABSOLUTE BASOPHIL 0.0 X10E9/L Normal 0.0-0.2 [facility] Comment on above: Performed By: #### C BCA, CMP, 43742-9, 22160-6, 25286-3, PINR, 39270-7, 60048-5 #### [facility] ([id number]) [address] [place] [address] 48626 ABSOLUTE NEUTROPHIL 4.6 X10E9/L Normal 1.5-6.6 [facility] Comment on above: Performed By: #### C BCA, CMP, 31351-5, 63476-4, 30736-6, PINR, 09097-2, 12203-5 #### [facility] ([id number]) [address] [place] [address] 21996 Basophils/100 WBC (Bld) 0.6 % Normal [facility] Comment on above: Performed By: #### C BCA, CMP, 15482-5, 09635-4, 79612-0, PINR, 98379-8, 14537-0 #### [facility] ([id number]) [address] [place] [address] 95472 Eosinophils (Bld) [#/Vol] 0.1 10*3/uL Normal 0.0-0.4 [facility] Comment on above: Performed By: #### C BCA, CMP, 03793-0, 84359-9, 11267-1, PINR, 78257-1, 54043-2 #### [facility] ([id number]) [address] [place] [address] 47134 Eosinophils/100 WBC (Bld) 1.8 % Normal [facility] Comment on above: Performed By: #### C BCA, CMP, 94077-6, 59922-8, 84201-4, PINR, 38834-2, 52767-6 #### [facility] ([id number]) [address] [place] [address] 52843 Erythrocyte distribution width (RBC) [Ratio] 13.1 % Normal 11.5-15.0 [facility] Comment on above: Performed By: #### C BCA, CMP, 25713-2, 84634-9, 91483-1, PINR, 85762-0, 38786-5 #### [facility] ([id number]) [address] [place] [address] 83167 Hematocrit (Bld) [Volume fraction] 38.4 % Low 39-49 [facility] Comment on above: Performed By: #### C BCA, CMP, 66766-6, 92088-9, 55058-3, PINR, 44586-5, 68395-6 #### [facility] ([id number]) [address] [place] [address] 57094 Hemoglobin (Bld) [Mass/Vol] 13.2 g/dL Normal 13.0-17.0 [facility] Comment on above: Performed By: #### C BCA, CMP, 41353-1, 27572-1, 95179-4, PINR, 66430-8, 33001-3 #### [facility] ([id number]) [address] [place] [address] 96780 Lymphocytes (Bld) [#/Vol] 2.1 10*3/uL Normal 1.0-3.5 [facility] Comment on above: Performed By: #### C BCA, CMP, 71365-2, 80401-7, 38497-0, PINR, 61361-6, 52282-9 #### [facility] ([id number]) [address] [place] [address] 95648 Lymphocytes/100 WBC (Bld) 29.0 % Normal [facility] Comment on above: Performed By: #### C BCA, CMP, 62709-3, 91033-3, 58372-2, PINR, 56899-5, 23336-3 #### [facility] ([id number]) [address] [place] [address] 21343 MCH (RBC) [Entitic mass] 31.6 pg Normal 27-34 [facility] Comment on above: Performed By: #### C BCA, CMP, 45495-5, 22007-8, 62073-2, PINR, 85878-9, 12272-4 #### [facility] ([id number]) [address] [place] [address] 70503 MCHC (RBC) [Mass/Vol] 34.5 g/dL Normal 32-36 [facility] Comment on above: Performed By: #### C BCA, CMP, 02894-4, 86378-3, 50741-8, PINR, 47036-8, 43875-1 #### [facility] ([id number]) [address] [place] [address] 92362 MCV (RBC) [Entitic vol] 92 fL Normal 80-100 [facility] Comment on above: Performed By: #### C BCA, CMP, 46038-8, 60976-5, 76497-4, PINR, 21987-5, 38883-2 #### [facility] ([id number]) [address] [place] [address] 84550 Monocytes (Bld) [#/Vol] 0.4 10*3/uL Normal 0-0.9 [facility] Comment on above: Performed By: #### C BCA, CMP, 02790-5, 71902-7, 58387-8, PINR, 84272-4, 87202-6 #### [facility] ([id number]) [address] [place] [address] 82923 Monocytes/100 WBC (Bld) 5.7 % Normal [facility] Comment on above: Performed By: #### C BCA, CMP, 53875-0, 87800-3, 31507-4, PINR, 35583-5, 52859-9 #### [facility] ([id number]) [address] [place] [address] 06435 Neutrophils/100 WBC (Bld) 62.9 % Normal [facility] Comment on above: Performed By: #### C BCA, CMP, 63599-1, 55909-7, 04144-8, PINR, 30470-6, 11378-4 #### [facility] ([id number]) [address] [place] [address] 59597 Platelet mean volume (Bld) [Entitic vol] 9.3 fL Normal 7-12 [facility] Comment on above: Performed By: #### C BCA, CMP, 01736-4, 61846-8, 06310-8, PINR, 10459-7, 24873-9 #### [facility] ([id number]) [address] [place] [address] 43480 Platelets (Bld) [#/Vol] 234 10*3/uL Normal 150-450 [facility] Comment on above: Performed By: #### C BCA, CMP, 36965-9, 72072-0, 71120-0, PINR, 37150-4, 59870-8 #### [facility] ([id number]) [address] [place] [address] 23468 RBC COUNT 4.19 X10E12/L Normal 4.10-5.70 [facility] Comment on above: Performed By: #### C BCA, CMP, 07046-7, 83015-7, 39883-8, PINR, 58272-0, 91132-1 #### [facility] ([id number]) [address] [place] [address] 06681 WBC (Bld) [#/Vol] 7.3 10*3/uL Normal 4.0-11.0 [facility] Comment on above: Performed By: #### C BCA, CMP, 12710-3, 97107-6, 23344-1, PINR, 65678-8, 98235-7 #### [facility] ([id number]) [address] [place] [address], [place] [address] COMPREHENSIVE METABOLIC PANE Pranay 07-19-2024 Albumin [Mass/Vol] 4.2 g/dL Normal 3.2-5.3 [facility] Comment on above: Performed By: #### C BCA, CMP, 92307-5, 23050-5, 23383-7, PINR, 28728-4, 15631-6 #### [facility] ([id number]) [address] [place] [address] 77571 ALP [Catalytic activity/Vol] 58 U/L Normal 39-130 [facility] Comment on above: Performed By: #### C BCA, CMP, 13138-2, 03389-1, 45584-5, PINR, 89026-5, 00293-9 #### [facility] ([id number]) [address] [place] [address] 27079 ALT [Catalytic activity/Vol] 18 U/L Normal 0-40 [facility] Comment on above: Performed By: #### C BCA, CMP, 18686-0, 63303-4, 34287-2, PINR, 06048-9, 31835-8 #### [facility] ([id number]) [address] [place] [address] 55287 Anion gap [Moles/Vol] 8 mmol/L Normal 5-15 [facility] Comment on above: Performed By: #### C BCA, CMP, 54347-4, 41028-0, 40945-4, PINR, 06160-5, 78938-8 #### [facility] ([id number]) [address] [place] [address] 49822 AST [Catalytic activity/Vol] 18 U/L Normal 0-41 [facility] Comment on above: Performed By: #### C BCA, CMP, 48793-2, 16850-6, 13362-2, PINR, 85036-4, 16199-7 #### [facility] ([id number]) [address] [place] [address] 10626 Bilirubin [Mass/Vol] 0.8 mg/dL Normal 0.3-1.2 [facility] Comment on above: Performed By: #### C BCA, CMP, 68900-1, 27093-4, 13596-2, PINR, 03542-8, 88779-8 #### [facility] ([id number]) [address] [place] [address] 22763 Calcium [Mass/Vol] 9.3 mg/dL Normal 8.5-10.5 [facility] Comment on above: Performed By: #### C BCA, CMP, 40288-0, 01351-1, 85512-3, PINR, 73766-9, 66577-7 #### [facility] ([id number]) [address] [place] [address] 39465 Chloride [Moles/Vol] 99 mmol/L Normal 98-109 [facility] Comment on above: Performed By: #### C BCA, CMP, 36772-7, 23379-5, 90590-4, PINR, 59647-8, 12911-9 #### [facility] ([id number]) [address] [place] [address] 91603 CO2 [Moles/Vol] 28 mmol/L Normal 22-32 [facility] Comment on above: Performed By: #### C BCA, CMP, 47462-5, 98072-5, 95582-3, PINR, 25524-9, 82257-4 #### [facility] ([id number]) [address] [place] [address] 95562 Creatinine [Mass/Vol] 0.93 mg/dL Normal 0.70-1.20 [facility] Comment on above: Result Comment: METH OD TRACEABLE TO IDMS STANDARD Performed By: #### C BCA, CMP, 75041-8, 77828-6, 54483-3, PINR, 33666-0, 96261-5 #### [facility] ([id number]) [address] [place] [address] 47895 eGFR (CKD-EPI) NON-RACE DEPENDENT >90 Normal >59 [facility] Comment on above: Result Comment: Reported eGFR is based on the CKD-EPI 2020 equation that does not use a race coefficient. Performed By: #### C BCA, CMP, 44634-3, 56881-8, 21926-4, PINR, 14210-2, 72881-0 #### [facility] ([id number]) [address] [place] [address] 66912 Glucose [Mass/Vol] 150 mg/dL High 65-99 [facility] Comment on above: Performed By: #### C BCA, CMP, 34748-0, 18479-1, 25970-8, PINR, 82079-9, 92528-3 #### [facility] ([id number]) [address] [place] [address] 68174 Potassium [Moles/Vol] 3.2 mmol/L Low 3.5-5.0 [facility] Comment on above: Performed By: #### C BCA, CMP, 96721-4, 56621-7, 39399-9, PINR, 65098-6, 49295-5 #### [facility] ([id number]) [address] [place] [address] 14438 Protein [Mass/Vol] 7.7 g/dL Normal 6.0-8.0 [facility] Comment on above: Performed By: #### C BCA, CMP, 93993-9, 40414-9, 87609-5, PINR, 52169-1, 43705-6 #### [facility] ([id number]) [address] [place] [address] 71808 Sodium [Moles/Vol] 135 mmol/L Normal 134-146 [facility] Comment on above: Performed By: #### C BCA, CMP, 07150-6, 46071-5, 24229-1, PINR, 59999-7, 09010-7 #### [facility] ([id number]) [address] [place] [address] 48335 Urea nitrogen [Mass/Vol] 13 mg/dL Normal 5-23 [facility] Comment on above: Performed By: #### C BCA, CMP, 36644-3, 75669-2, 04081-8, PINR, 94249-5, 89312-7 #### [facility] ([id number]) [address] [place] [address] 55614 Fibrin D-dimer DDU (PPP) [Ma ss/Vol]on 07-19-2024 D DIMER <150 Normal <255 [facility] Comment on above: Result Comment: Results <255 ng/mL DDU: The presence of a VTE can safely be excluded with a negative D-Dimer result and Wells score. A negative result doesn't exclude the possibility of DIC. The test be repeated along with other diagnostic tests if the patient's symptoms persist or worsen. [email or web address] Performed By: #### C BCA, CMP, 26271-0, 22032-0, 75645-5, PINR, 48299-2, 39582-6 #### [facility] ([id number]) [address] [place] [address] 66834 MAGNESIUMon 07-19-2024 Magnesium [Mass/Vol] 1.7 mg/dL Low 1.8-2.6 [facility] Comment on above: Performed By: #### C BCA, CMP, 25963-0, 35576-8, 04344-5, PINR, 20759-9, 08255-8 #### [facility] ([id number]) [address] [place] [address] 84821 Natriuretic peptide B [Mass/ Vol]on 07-19-2024 Natriuretic peptide B (Bld) [Mass/Vol] 16 pg/mL Normal <100.0 [facility] Comment on above: Performed By: #### C BCA, CMP, 50793-4, 64137-3, 03611-2, PINR, 62157-3, 64929-4 #### [facility] ([id number]) [address] [place] [address] [place] [address] PROTIME AND INRon 07-19-2024 INR Coag (PPP) [Relative time] 1.2 {INR} High 0.8-1.1 [facility] Comment on above: Performed By: #### C BCA, CMP, 82601-6, 64355-6, 65564-1, PINR, 28188-5, 36374-0 #### [facility] ([id number]) [address] [place] [address] 59146 PT Coag (PPP) [Time] 14.0 s High 9.8-13.2 [facility] Comment on above: Result Comment: NEW REFERENCE RANGE Performed By: #### C BCA, CMP, 99892-3, 97014-6, 06197-8, PINR, 88593-9, 83260-9 #### [facility] ([id number]) [address] [place] [address] [place] [address] Troponin I.cardiac High sens itivity method [Mass/Vol]on 07-19-2024 1 HOUR TROP I, HIGH SENSITIVITY 6 ng/L Normal <21 [facility] Comment on above: Performed By: #### C BCA, CMP #### [facility] ([id number]) [address] [place] [address] 57314 TROPONIN I, HIGH SENSITIVITY 4 ng/L Normal <21 [facility] Comment on above: Performed By: #### C BCA, CMP, 68542-4, 22330-2, 89858-2, PINR, 23552-9, 14901-2 #### [facility] ([id number]) [address] [place] [address] 66405 XR CHEST 1 VWon 07-19-2024 XR CHEST 1 VW XR CHEST 1 VW Single view chest History: Chest pain Comparison: X-ray 07/23/2023 Findings: Single portable view of the chest. Cardiomediastinal silhouette and pulmonary vasculature are within normal limits. Lungs and pleural space are clear. There is no pleural effusion or pneumothorax. Impression: No acute cardiopulmonary process. Finalized by Philippe Rojas on 07/19/2024 2:23 PM Normal [facility] aPTT Coag (PPP) [Time]on aPTT Coag (Bld) [Time] 29 s Normal 26-37 [facility] Comment on above: Result Comment: NEW REFERENCE RANGE Performed By: #### C BCA, CMP, 29535-0, 73240-7, 78742-3, PINR, 84513-3, 31663-6 #### [facility] ([id number]) [address] [place] [address] 73874 CBC AND AUTO DIFFon 07-12- 24 ABSOLUTE BASOPHIL 0.0 X10E9/L Normal 0.0-0.2 [facility] Comment on above: Performed By: #### C BCA, CMP #### [facility] ([id number]) [address] [place] [address] 61012 ABSOLUTE NEUTROPHIL 3.1 X10E9/L Normal 1.5-6.6 [facility] Comment on above: Performed By: #### C BCA, CMP #### [facility] ([id number]) [address] [place] [address] 48876 Basophils/100 WBC (Bld) 0.5 % Normal [facility] Comment on above: Performed By: #### C BCA, CMP #### [facility] ([id number]) [address] [place] [address] 85062 Eosinophils (Bld) [#/Vol] 0.1 10*3/uL Normal 0.0-0.4 [facility] Comment on above: Performed By: #### C NAVARRO, CMP #### [facility] ([id number]) [address] [place] [address] 36621 Eosinophils/100 WBC (Bld) 1.9 % Normal [facility] Comment on above: Performed By: #### C NAVARRO, CMP #### [facility] ([id number]) [address] [place] [address] 05167 Erythrocyte distribution width (RBC) [Ratio] 12.8 % Normal 11.5-15.0 [facility] Comment on above: Performed By: #### C NAVARRO, CMP #### [facility] ([id number]) [address] [place] [address] 00923 Hematocrit (Bld) [Volume fraction] 38.4 % Low 39-49 [facility] Comment on above: Performed By: #### C NAVARRO, CMP #### [facility] ([id number]) [address] [place] [address] 25895 Hemoglobin (Bld) [Mass/Vol] 13.3 g/dL Normal 13.0-17.0 [facility] Comment on above: Performed By: #### C NAVARRO, CMP #### [facility] ([id number]) [address] [place] [address] 05860 Lymphocytes (Bld) [#/Vol] 2.0 10*3/uL Normal 1.0-3.5 [facility] Comment on above: Performed By: #### C NAVARRO, CMP #### [facility] ([id number]) [address] [place] [address] 17718 Lymphocytes/100 WBC (Bld) 35.4 % Normal [facility] Comment on above: Performed By: #### C NAVARRO, CMP #### [facility] ([id number]) [address] [place] [address] 06028 MCH (RBC) [Entitic mass] 31.8 pg Normal 27-34 [facility] Comment on above: Performed By: #### C BCA, CMP #### [facility] ([id number]) [address] [place] [address] 00445 MCHC (RBC) [Mass/Vol] 34.7 g/dL Normal 32-36 [facility] Comment on above: Performed By: #### C BCA, CMP #### [facility] ([id number]) [address] [place] [address] 91162 MCV (RBC) [Entitic vol] 92 fL Normal 80-100 [facility] Comment on above: Performed By: #### C BCA, CMP #### [facility] ([id number]) [address] [place] [address] 71005 Monocytes (Bld) [#/Vol] 0.4 10*3/uL Normal 0-0.9 [facility] Comment on above: Performed By: #### C NAVARRO, CMP #### [facility] ([id number]) [address] [place] [address] 19609 Monocytes/100 WBC (Bld) 7.3 % Normal [facility] Comment on above: Performed By: #### C BCA, CMP #### [facility] ([id number]) [address] [place] [address] 79396 Neutrophils/100 WBC (Bld) 54.9 % Normal [facility] Comment on above: Performed By: #### C BCA, CMP #### [facility] ([id number]) [address] [place] [address] 04635 Platelet mean volume (Bld) [Entitic vol] 8.6 fL Normal 7-12 [facility] Comment on above: Performed By: #### C BCA, CMP #### [facility] ([id number]) [address] [place] [address] 55512 Platelets (Bld) [#/Vol] 239 10*3/uL Normal 150-450 [facility] Comment on above: Performed By: #### C BCA, CMP #### [facility] ([id number]) [address] [place] [address] 26928 RBC COUNT 4.19 X10E12/L Normal 4.10-5.70 [facility] Comment on above: Performed By: #### C BCA, CMP #### [facility] ([id number]) [address] [place] [address] 17438 WBC (Bld) [#/Vol] 5.6 10*3/uL Normal 4.0-11.0 [facility] Comment on above: Performed By: #### C BCA, CMP #### [facility] ([id number]) [address] [place] [address] 53650 COMPREHENSIVE METABOLIC PANE Pranay 07-12-2024 Albumin [Mass/Vol] 4.4 g/dL Normal 3.2-5.3 [facility] Comment on above: Performed By: #### C BCA, CMP #### [facility] ([id number]) [address] [place] [address] 76108 ALP [Catalytic activity/Vol] 58 U/L Normal 39-130 [facility] Comment on above: Performed By: #### C BCA, CMP #### [facility] ([id number]) [address] [place] [address] 85641 ALT [Catalytic activity/Vol] 19 U/L Normal 0-40 [facility] Comment on above: Performed By: #### C BCA, CMP #### [facility] ([id number]) [address] [place] [address] 08111 Anion gap [Moles/Vol] 9 mmol/L Normal 5-15 [facility] Comment on above: Performed By: #### C BCA, CMP #### [facility] ([id number]) [address] [place] [address] 24142 AST [Catalytic activity/Vol] 19 U/L Normal 0-41 [facility] Comment on above: Performed By: #### C BCA, CMP #### [facility] ([id number]) [address] [place] [address] 61489 Bilirubin [Mass/Vol] 1.0 mg/dL Normal 0.3-1.2 [facility] Comment on above: Performed By: #### C BCA, CMP #### [facility] ([id number]) [address] [place] [address] 57916 Calcium [Mass/Vol] 9.4 mg/dL Normal 8.5-10.5 [facility] Comment on above: Performed By: #### C BCA, CMP #### [facility] ([id number]) [address] [place] [address] 92549 Chloride [Moles/Vol] 101 mmol/L Normal 98-109 [facility] Comment on above: Performed By: #### C BCA, CMP #### [facility] ([id number]) [address] [place] [address] 19530 CO2 [Moles/Vol] 29 mmol/L Normal 22-32 [facility] Comment on above: Performed By: #### C BCA, CMP #### [facility] ([id number]) [address] [place] [address] 77808 Creatinine [Mass/Vol] 0.70 mg/dL Normal 0.70-1.20 [facility] Comment on above: Result Comment: METH OD TRACEABLE TO IDMS STANDARD Performed By: #### C BCA, CMP #### [facility] ([id number]) [address] [place] [address] [place] [address] eGFR (CKD-EPI) NON-RACE DEPENDENT >90 Normal >59 [facility] Comment on above: Result Comment: Reported eGFR is based on the CKD-EPI 2020 equation that does not use a race coefficient. Performed By: #### C BCA, CMP #### [facility] ([id number]) [address] [place] [address] 35740 Glucose [Mass/Vol] 108 mg/dL High 65-99 [facility] Comment on above: Performed By: #### C BCA, CMP #### [facility] ([id number]) [address] [place] [address] 27163 Potassium [Moles/Vol] 3.5 mmol/L Normal 3.5-5.0 [facility] Comment on above: Performed By: #### C BCA, CMP #### [facility] ([id number]) [address] [place] [address]70 Protein [Mass/Vol] 7.7 g/dL Normal 6.0-8.0 [facility] Comment on above: Performed By: #### C BCA, CMP #### [facility] ([id number]) [address] [place] [address] 81287 Sodium [Moles/Vol] 139 mmol/L Normal 134-146 [facility] Comment on above: Performed By: #### C BCA, CMP #### [facility] ([id number]) [address] [place] [address] 20061 Urea nitrogen [Mass/Vol] 15 mg/dL Normal 5-23 [facility] Comment on above: Performed By: #### C BCA, CMP #### [facility] ([id number]) [address] [place] [address] 21672 Laboratory - Microbiology an d Antimicrobial susceptibilityon 02-13-2024 S. pyogenes Ag Ql (Unsp spec) Positive [facility] Laboratory - Chemistry and C hemistry - challengeon 01-12-2024 Cobalamin (Vitamin B12) [Mass/Vol] 244 pg/mL [facility] Cholesterol in LDL [Mass/Vol] 89 mg/dL [facility] Laboratory - Hematology and Cell countson 01-12-2024 ESR (Bld) [Velocity] 11 mm/h [facility] HbA1c (Bld) [Mass fraction] 5.1 % [facility] No Panel Informationon 01-11 Folate 9.7 ng/mL [facility] Prostate Specific Antigen Screen 1.35 ng/mL [facility] COVID-19 & Influenza Comboon 12-16-2023 Influenza A by PCR Negative Negative [facility] Influenza B by PCR Negative Negative [facility] SARS-CoV-2 (COVID-19) RNA CHRISTI+probe Ql (Unsp spec) Negative Negative [facility] Comment on above: Fact Sheet for HCP: https://www.fda.gov/media/676843/download Fact Sheet for Patients: https://www.fda.gov/media/632766/download Is this test for diagnosis or screening?->Diagnosi s of ill patient [facility] Portable XR Chest AP single viewon 12-16-2023 Clear lungs without infiltrate. Cardiac silhouette prominent, accentuated by magnification. [facility] EXAM: XR CHEST PORTABLE HISTORY: TECH NOTES: Cough Congestion Nasal congestion cough COMPARISON: 11/04/2018 TECHNIQUE: AP upright chest x-ray 4:46 PM FINDINGS: Lungs are clear without infiltrate or edema. Cardiac silhouette prominent, accentuated by magnification. Pleural effusion or pneumothorax. Report electronically signed by: Dr. Valentin Orlando [facility] Valentin Orlando - 12/16/2023 EXAM: XR CHEST PORTABLE HISTORY: TECH NOTES: Cough Congestion Nasal congestion cough COMPARISON: 11/04/2018 TECHNIQUE: AP upright chest x-ray 4:46 PM FINDINGS: Lungs are clear without infiltrate or edema. Cardiac silhouette prominent, accentuated by magnification. Pleural effusion or pneumothorax. Report electronically signed by: Dr. Valentin Orlando IMPRESSION: Clear lungs without infiltrate. Cardiac silhouette prominent, accentuated by magnification. [facility] Work Phone: Radiology Study observation (narrative) [facility] Work Phone: Portable XR Chest AP single viewOrdered By: Valentin Orlando on 12-16-2023 [facility] Respiratory 3 PLEXon 024 Gene-COVID Negative Normal Negative [facility] Comment on above: Order Comment: Is th is test for diagnosis or screening?->Diagnosis of ill patient Result Comment: Fact Sheet for HCP: https://www.fda.gov/media/175411/download\X0D0A\X0D0A\Fact Sheet for Patients: https://www.fda.gov/media/703468/download Performed By: #### 3 PLEX #### [place] [address] Ph. [phone] Gene-FLUA Negative Normal Negative [facility] Comment on above: Order Comment: Is th is test for diagnosis or screening?->Diagnosis of ill patient Performed By: #### 3 PLEX #### [place] [address] Ph. [phone] Gene-FLUB Negative Normal Negative [facility] Comment on above: Order Comment: Is th is test for diagnosis or screening?->Diagnosis of ill patient Performed By: #### 3 PLEX #### [place] [address] Ph. [phone] XR CHEST PORTABLEon 12-16-19 24 XR CHEST PORTABLE RADRPT EXAM: XR CHEST [...] by: Valentin Orlando 12/16/23 Final result Normal [facility] Basophils Auto (Bld) [#/Vol] on 12-09-2023 Basophils (Bld) [#/Vol] 0.0 10 3/uL 0.0-0.1 [facility] Basophils/100 WBC Auto (Bld) on 12-09-2023 Basophils/100 WBC (Bld) 0.5 % 0.2-2.0 [facility] Eosinophils/100 WBC Auto (Bl d)on 12-09-2023 Eosinophils/100 WBC (Bld) 1.9 % 0.9-7.0 [facility] Erythrocyte distribution wid th Auto (RBC) [Ratio]on 12-09-2023 Erythrocyte distribution width (RBC) [Ratio] 11.7 % 11.0-15.0 [facility] Estimated glomerular filtrat ion rate (GFR) non- Americanon 12-09-2023 GFR/1.73 sq M.predicted among non-blacks MDRD (S/P/Bld) [Vol rate/Area] mL/min/{1.73_m2} >=60 [facility] Hematocrit Auto (Bld) [Volum e fraction]on 12-09-2023 Hematocrit (Bld) [Volume fraction] 38.5 % 42.0-54.0 [facility] Hemoglobin [Mass/volume] in Bloodon 12-09-2023 Hemoglobin (Bld) [Mass/Vol] 12.8 g/dL 14.0-18.0 [facility] Laboratory - Chemistry and C hemistry - challengeon 12-09-2023 Calcium [Mass/Vol] 9.3 mg/dL 8.5-10.1 [facility] Chloride [Moles/Vol] 103 mmol/L 98-107 [facility] CO2 [Moles/Vol] 31.1 mmol/L 21.0-32.0 [facility] Creatinine [Mass/Vol] 0.92 mg/dL 0.70-1.30 [facility] GFR/1.73 sq M.predicted MDRD (S/P/Bld) [Vol rate/Area] mL/min/{1.73_m2} >=60 [facility] Glucose [Mass/Vol] 101 mg/dL 74-106 [facility] Magnesium [Mass/Vol] 1.7 mg/dL 1.8-2.4 [facility] Potassium [Moles/Vol] 3.3 mmol/L 3.5-5.1 [facility] Sodium [Moles/Vol] 142 mmol/L 136-145 [facility] Urea nitrogen [Mass/Vol] 14.0 mg/dL 7.0-18.0 [facility] Urea nitrogen/Creatinine [Mass ratio] 15.2 mg/mg [facility] Laboratory - Hematology and Cell countson 12-09-2023 Immature granulocytes/100 WBC (Bld) 0.3 % 0.0-0.5 [facility] Leukocytes [#/volume] correc domenica for nucleated erythrocytes in Blood by Automated counon 12-09-2023 WBC corrected for nucl RBC Auto (Bld) [#/Vol] 6.5 10 3/uL 4.0-11.0 [facility] Lymphocytes Auto (Bld) [#/Vo l]on 12-09-2023 Lymphocytes (Bld) [#/Vol] 2.1 10 3/uL 1.2-3.8 [facility] Lymphocytes/100 WBC Auto (Bl d)on 12-09-2023 Lymphocytes/100 WBC (Bld) 32.7 % 20.5-60.0 [facility] MCH Auto (RBC) [Entitic mass ]on 12-09-2023 MCH (RBC) [Entitic mass] 31.4 pg 25.9-34.0 [facility] MCHC Auto (RBC) [Mass/Vol]on 12-09-2023 MCHC (RBC) [Mass/Vol] 33.2 g/dL 29.9-35.2 [facility] MCV Auto (RBC) [Entitic vol] on 12-09-2023 MCV (RBC) [Entitic vol] 94.4 fL 80.0-94.0 [facility] Monocytes Auto (Bld) [#/Vol] on 12-09-2023 Monocytes (Bld) [#/Vol] 0.5 10 3/uL 0.3-0.8 [facility] Monocytes/100 WBC Auto (Bld) on 12-09-2023 Monocytes/100 WBC (Bld) 8.0 % 1.7-12.0 [facility] Neutrophils Auto (Bld) [#/Vo l]on 12-09-2023 Neutrophils (Bld) [#/Vol] 3.7 10 3/uL 1.4-6.5 [facility] Neutrophils/100 WBC Auto (Bl d)on 12-09-2023 Neutrophils/100 WBC (Bld) 56.6 % 43.0-75.0 [facility] No Panel Informationon 12-09 Eosinophils # (Auto) 0.1 10 3/uL 0.0-0.7 [facility] Immature Granulocyte # (Auto) 0.02 10 3/uL 0.00-0.03 [facility] Platelet mean volume Auto (B ld) [Entitic vol]on 12-09-2023 Platelet mean volume (Bld) [Entitic vol] 10.6 fL 9.5-13.5 [facility] Platelets Auto (Bld) [#/Vol] on 12-09-2023 Platelets (Bld) [#/Vol] 239 10 3/uL 150-450 [facility] RBC Auto (Bld) [#/Vol]on RBC (Bld) [#/Vol] 4.08 10 6/uL 4.70-6.10 [facility] Serum or plasma anion gap de terminationon 12-09-2023 Anion gap [Moles/Vol] 11.2 mmol/L [facility] XR LSPINE MIN 4 VIEWSon 01-24 [...] BEATRICE BARNES Date: 2023-02-15 13:41 Normal [facility] CULTURE URINEon 02-09-2023 CULTURE URINE Culture Observations: NO GROWTH. Normal [facility] Comment on above: Performed By: #### U RCX #### [facility] [address] [place] [address] Dr. Razia Jordan UA RANDOM W/MICROSCOPICon BACTERIA NONE SEEN Normal NONE SEEN [facility] Comment on above: Performed By: #### U AMIC #### [facility] [address] [place] [address] Dr. Razia Jordan Bilirubin Ql (U) Negative Normal NEGATIVE [facility] Comment on above: Performed By: #### U AMIC #### [facility] [address] [place] [address] Dr. Razia Jordan CAST NONE SEEN Normal NONE SEEN [facility] Comment on above: Performed By: #### U AMIC #### [facility] [address] [address] [address] Razia Jordan Clarity (U) CLEAR Normal CLEAR [facility] Comment on above: Performed By: #### U AMIC #### [facility] [address] [address] [address] Razia Jordan Color (U) LT. YELLOW Normal YELLOW [facility] Comment on above: Performed By: #### U AMIC #### [facility] [address] [address] [address] Razia Jordan Crystals LM Nom (Urine sed) NONE SEEN Normal NONE SEEN [facility] Comment on above: Performed By: #### U AMIC #### [facility] [address] [address] [address] Razia Jordan Epithelial cells LM Ql (Urine sed) RARE Normal NONE SEEN /RARE [facility] Comment on above: Performed By: #### U AMIC #### [facility] [address] [place] [address] Dr. Razia Jordan Glucose Ql (U) Negative Normal NEGATIVE [facility] Comment on above: Performed By: #### U AMIC #### [facility] [address] [address] [address] Razia Jordan Hemoglobin Ql (U) Negative Normal NEGATIVE [facility] Comment on above: Performed By: #### U AMIC #### [facility] [address] [address] [address] Razia Jordan Ketones Ql (U) Negative Normal NEGATIVE [facility] Comment on above: Performed By: #### U AMIC #### [facility] [address] [address] [address] Razia Jordan LEUKOCYTES Negative Normal NEGATIVE [facility] Comment on above: Performed By: #### U AMIC #### [facility] [address] [address] [address] Razia Jordan MUCOUS NONE SEEN Normal NONE SEEN [facility] Comment on above: Performed By: #### U AMIC #### [facility] [address] [address] [address] Razia Jordan Nitrite Ql (U) Negative Normal NEGATIVE [facility] Comment on above: Performed By: #### U AMIC #### [facility] [address] [address] [address] Razia Jordan pH (U) 5.5 [pH] Normal 5-9 [facility] Comment on above: Performed By: #### U AMIC #### [facility] [address] [address] [address] Razia Jordan RBC NONE SEEN Abnormal 0-2 [facility] Comment on above: Performed By: #### U AMIC #### [facility] [address] [address] [address] Razia Jordan SPEC GRAVITY 1.025 Normal 1.005-<=1.025 [facility] Comment on above: Performed By: #### U AMIC #### [facility] [address] [address] [address] Razia Jordan UA PROTEIN Negative Normal NEGATIVE/ TRACE [facility] Comment on above: Performed By: #### U AMIC #### [facility] [address] [address] [address] Razia Jordan Urobilinogen Qn (U) 0.2 {Viktor'U}/dL Normal 0.2 - 1. 0 [facility] Comment on above: Performed By: #### U AMIC #### [facility] [address] [place], [place] [address] Dr. Razia Jordan WBC NONE SEEN Normal NONE SEEN [facility] Comment on above: Performed By: #### U AMIC #### [facility] [address] [address] [address] Razia Jordan XR KUB 1 VIEWon [...] by: BEATRICE BARNES Date: 2023-02-09 08:41 Normal [facility] COVID/FLU RT-PCRon 3 SARS-CoV-2 (COVID-19) RNA CHRISTI+probe Ql (Unsp spec) Positive [facility] Other COVID/FLU RT-PCR Negative [facility] vSocial Other TH CT CARDIAC SCORINGon 08-25 CT CARDIAC SCORING [...] pain, unspecified . COMPARISON: None. ACCESSION NUMBER(S): [id number] ORDERING CLINICIAN: ARMIDA BATISTA TECHNIQUE: Using prospective [...] coronary heart disease events. According to the [place] [employer] Clinical Expert Consensus [...] modify other non-lipid coronary risk factors. Reference: [place] P et al. Circulation. 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 Coded By: Tristen Morales Date Saved: 03/29/2020 02:12 pm [facility] .Auto Diff 03-22-2020 Auto [place] % 7 % Normal 11-05 [facility] Comment on above: Performed By: #### 1 [id number], [id number], [id number], [id number], [id number] #### [facility] (DEFAULT) [address] [place] [address]192 Baso Abs# 0.0 x10 Normal 0.0-0.2 [facility] Comment on above: Performed By: #### 1 [id number], [id number], 8104562, [id number], [id number] #### [facility] (DEFAULT) [address] [place] [address] Basophils/100 WBC (Bld) 0.3 % Normal 0.2-2.0 [facility] Comment on above: Performed By: #### 1 [id number], [id number], 6970473, 80001572, [id number] #### [facility] (DEFAULT) [address] [place] [address] 99488 Eos Abs# 0.1 x10 Normal 0.0-0.4 [facility] Comment on above: Performed By: #### 1 [id number], [id number], 0690704, 69652364, [id number] #### [facility] (DEFAULT) [address] [place] [address]383 Eosinophils/100 WBC (Bld) 1.9 % Normal 0.9-4.0 [facility] Comment on above: Performed By: #### 1 [id number], [id number], 8293632, 66763239, [id number] #### [facility] (DEFAULT) [address] [place] [address] 31554 Lymphocytes (Bld) [#/Vol] 1.9 x10 Normal 1.3-2.9 [facility] Comment on above: Performed By: #### 1 [id number], [id number], 6654961, 17232402, [id number] #### [facility] (DEFAULT) [address] [place] [address] 39560 Lymphocytes/100 WBC (Bld) 25 % Normal 14-48 [facility] Comment on above: Performed By: #### 1 [id number], [id number], 1002114, 85787318, [id number] #### [facility] (DEFAULT) [address] [place] [address] 98[address] [place] Abs# 0.5 x10 Normal 0.0-0.8 [facility] Comment on above: Performed By: #### 1 [id number], [id number], 4879490, 61424552, [id number] #### [facility] (DEFAULT) [address] [place] [address] 11242 Neut Abs# 4.8 x10 Normal 1.5-9.2 [facility] Comment on above: Performed By: #### 1 [id number], [id number], 4481669, 27547412, [id number] #### [facility] (DEFAULT) [address] [place] [address] 67717 Neutrophils/100 WBC (Bld) 65 % Normal 44-88 [facility] Comment on above: Performed By: #### 1 [id number], [id number], 7412903, 39039718, [id number] #### [facility] (DEFAULT) [address] [place] [address] CBC w/ Auto Diffon 0 Erythrocyte distribution width (RBC) [Ratio] 12.5 % Normal 11.5-15.0 [facility] Comment on above: Performed By: #### 1 [id number], [id number], 4264694, 77760093, [id number] #### [facility] (DEFAULT) [address] [place] [address] Hematocrit (Bld) [Volume fraction] 39.2 % Normal 34.8-51.9 [facility] Comment on above: Performed By: #### 1 [id number], [id number], 6960719, 38855227, [id number] #### [facility] (DEFAULT) [address] [place] [address] Hemoglobin (Bld) [Mass/Vol] 13.7 g/dL Normal 11.8-17.7 [facility] Comment on above: Performed By: #### 1 [id number], [id number], 3291936, 45151158, [id number] #### [facility] (DEFAULT) [address] [place] [address] Man Diff? Auto Normal [facility] Comment on above: Performed By: #### 1 [id number], [id number], 7490546, 70533206, [id number] #### [facility] (DEFAULT) [address] [place] [address] MCH (RBC) [Entitic mass] 31 pg Normal 24-34 [facility] Comment on above: Performed By: #### 1 [id number], [id number], 7298192, 43117202, [id number] #### [facility] (DEFAULT) [address] [place] [address] MCHC (RBC) [Mass/Vol] 35 g/dL Normal 26-37 [facility] Comment on above: Performed By: #### 1 [id number], [id number], 8077241, 31578452, [id number] #### [facility] (DEFAULT) [address] [place] [address] 59846 MCV (RBC) [Entitic vol] 89 fL Normal 81-100 [facility] Comment on above: Performed By: #### 1 [id number], 9860384484, 7722792, 19645577, [id number] #### [facility] (DEFAULT) [address] [place] [address] 52568 Platelet mean volume (Bld) [Entitic vol] 9.9 fL Normal 6.3-10.2 [facility] Comment on above: Performed By: #### 1 [id number], [id number], 0253469, 34051801, [id number] #### [facility] (DEFAULT) [address] [place] [address] 83034 Platelets (Bld) [#/Vol] 286 x10 Normal 138-427 [facility] Comment on above: Performed By: #### 1 [id number], 4041355007, 7537605, 78461168, [id number] #### [facility] (DEFAULT) [address] [place] [address] 21916 RBC (Bld) [#/Vol] 4.39 x10 Normal 3.70-5.30 [facility] Comment on above: Performed By: #### 1 [id number], 3018620993, 3440351, 99394559, 3190254901 #### [facility] (DEFAULT) [address] [place] [address] 74269 WBC (Bld) [#/Vol] 7.4 x10 [facility] Comment on above: Performed By: #### 1 [id number], 3240950504, 4747666, 99128656, [id number] #### [facility] (DEFAULT) [address] [place] [address] 82811 CMP Standardon 03-22-2020 eGFR Non AA >60 [facility] Comment on above: Performed By: #### 1 [id number], 7385575814, 7046464, 59480927, [id number] #### [facility] (DEFAULT) [address] [place] [address] 23184 eGFR AA >60 [facility] Comment on above: Result Comment: Underwriting Operations Manager philip Kidney disease could be indicated at eGFRs of less than 60 ml/min/1.73m2. Kidney Failure is indicated at less than 15 ml/min/1.73m2 Performed By: #### 1 [id number], [id number], 6952157, 73968424, [id number] #### [facility] (DEFAULT) [address] [place] [address] 68196 Albumin [Mass/Vol] 4.5 g/dL Normal 3.5-5.0 [facility] Comment on above: Performed By: #### 1 [id number], 7177927136, 9639382, 44230990, [id number] #### [facility] (DEFAULT) [address] [place] [address] 08545 Albumin/Globulin [Mass ratio] 1.2 {ratio} Low 1.4-2.6 [facility] Comment on above: Performed By: #### 1 [id number], 1795014121, 6752757, 21515737, [id number] #### [facility] (DEFAULT) [address] [place] [address] 33457 Alk Phos 69 IU/L Normal 32-91 [facility] Comment on above: Performed By: #### 1 [id number], [id number], 3067248, 41454106, [id number] #### [facility] (DEFAULT) [address] [place] [address] 56342 ALT/SGPT 34.0 IU/L Normal 17.0-63.0 [facility] Comment on above: Performed By: #### 1 [id number], 9664547388, 0235181, 76266597, [id number] #### [facility] (DEFAULT) [address] [place] [address] 99469 Anion gap [Moles/Vol] 11.0 mmol/L Normal 5.0-19.0 [facility] Comment on above: Performed By: #### 1 [id number], [id number], 1345086, 04148030, [id number] #### [facility] (DEFAULT) [address] [place] [address] 27419 AST/SGOT 24 IU/L Normal 15-41 [facility] Comment on above: Performed By: #### 1 [id number], [id number], 3900881, 63937804, [id number] #### [facility] (DEFAULT) [address] [place] [address] 66833 Bili Total 0.6 mg/dL Normal 0.3-1.2 [facility] Comment on above: Performed By: #### 1 [id number], 0587418169, 4572976, 99629174, [id number] #### [facility] (DEFAULT) [address] [place] [address] 71259 Calcium [Mass/Vol] 8.8 mg/dL Low 8.9-10.3 [facility] Comment on above: Performed By: #### 1 [id number], 9324373449, 2375410, 95109189, [id number] #### [facility] (DEFAULT) [address] [place] [address] 52292 Chloride [Moles/Vol] 105 mmol/L Normal 101-111 [facility] Comment on above: Performed By: #### 1 [id number], [id number], 0750991, 15879558, [id number] #### [facility] (DEFAULT) [address] [place] [address] 03655 CO2 [Moles/Vol] 26 mmol/L Normal 21-32 [facility] Comment on above: Performed By: #### 1 [id number], 1935212063, 5295250, 31209565, [id number] #### [facility] (DEFAULT) [address] [place] [address] 13902 Creatinine [Mass/Vol] 0.74 mg/dL Low 0.90-1.30 [facility] Comment on above: Performed By: #### 1 [id number], [id number], 5377297, 03450510, [id number] #### [facility] (DEFAULT) [address] [place] [address] 98323 Globulin (S) [Mass/Vol] 3.9 g/dL Normal 1.5-4.3 [facility] Comment on above: Performed By: #### 1 [id number], [id number], 5615632, 00350116, [id number] #### [facility] (DEFAULT) [address] [place] [address] 38992 Glucose [Mass/Vol] 112.0 mg/dL Normal 74.0-118.0 [facility] Comment on above: Performed By: #### 1 [id number], [id number], 6458381, 09023037, [id number] #### [facility] (DEFAULT) [address] [place] [address] 08959 Osmolality [Osmolality] 278 mOsm/L [facility] Comment on above: Performed By: #### 1 [id number], [id number], [id number], [id number], [id number] #### [facility] (DEFAULT) [address] [place] [address] 12775 Potassium [Moles/Vol] 3.4 mmol/L Low 3.6-5.1 [facility] Comment on above: Performed By: #### 1 [id number], [id number], [id number] #### [facility] (DEFAULT) [address] [place] [address] 81376 Protein [Mass/Vol] 8.4 g/dL High 6.5-8.1 [facility] Comment on above: Performed By: #### 1 [id number], [id number] #### [facility] (DEFAULT) [address] [place] [address] 58541 Sodium [Moles/Vol] 139.0 mmol/L Normal 136.0-144.0 [facility] Comment on above: Performed By: #### 1 [id number], [id number], [id number] #### [facility] (DEFAULT) [address] [place] [address] Urea nitrogen [Mass/Vol] 12 mg/dL Normal 8-26 [facility] Comment on above: Performed By: #### 1 [id number], [id number], [id number] #### [facility] (DEFAULT) [address] [place] [address] Urea nitrogen/Creatinine [Mass ratio] 16.0 mg/mg Normal 4.6-16.2 [facility] Comment on above: Performed By: #### 1 [id number], [id number], [id number], [id number], [id number] #### [facility] (DEFAULT) [address] [place] [address] CT Abdomen/Pelvis w/o Contra ston 03-22-2020 CT Abdomen/Pelvis w/o Contrast EXAMINATION: CT [...] MD 03/22/20 3:47 pm Technologist: ISAAC Dhillon [facility] ED Clinical Summaryon 2019 ED Clinical Summary [facility] - Emergency Department [address] [place], [place] [id number] ED Clinical Summary PERSON INFORMATION Name: MAURO NUNEZ Age: 39 Years Sex: MALE : 1980 MRN: Acct#: Visit Reason: Urinary frequency; URINATION PROBLEMS Arrival: 03/22/2020 12:44:00 Discharge: 03/22/2020 16:15:00 LOS: 000 03:31 Check In: 03/22/2020 12:44:00 Checkout:03/22/2020 16:15:00 Address: [address] [place] [address] PCP: ARMIDA BATISTA PROVIDER INFORMATION Provider Role [...] Normal pharynx pink and moist. NECK: -Supple (tmne-xm-zoixc). CARD: -Rate and rhythm: Regular -Murmurs: No [...] infection Impression and Plan Diagnosis Kidney stone ([id number]-ZN N20.0, Discharge, Medical) Plan Condition: Improved. Disposition: [...] Follow-Up: With: Address: When: ARMIDA BATISTA [address], [place] [address] Business (1) Within 3 to 5 days DIAGNOSIS: Kidney stone Patient Understands: Yes - Patient/family/careg iver verbalizes understanding of instructions given Comment: [facility] ED Note - Physicianon 2019 ED [...] Normal pharynx pink and moist. NECK: -Supple (bann-rw-wpiee). CARD: -Rate and rhythm: Regular -Murmurs: No [...] infection Impression and Plan Diagnosis Kidney stone (AII89-TM N20.0, Discharge, Medical) Plan Condition: Improved. Disposition: [...] on: 03/22/2020 16:06 EDT] Armida Jin MD [facility] ED Note-Nursingon 03-22-2020 ED Note-Nursing Patient arrives with lower back pain for 5 days which has resolved and dysuria for 3 days. Low grade temp of 99.7. States he feels like he is not emptying his bladder after urinating and there is burning. Normal [facility] ED Patient Education Noteon 03-22-2020 ED Patient [...] this condition includes: ? Antibiotic medicine. ? Czgb-keu-fwmoqqc medicines to treat discomfort. ? Drinking enough [...] these instructions at home: Medicines ? Take cgta-gyt-bofkmhg and prescription medicines only as told by [...] 07/21/2006 Document Revised: 04/20/2019 Document Reviewed: 04/20/2019 [employer] Interactive Patient Education ? 2019 [employer] Urology Kidney Stones Kidney stones (urolithiasis) are [...] kidney stones in the future. ? Take ynlu-cav-ahonzwl and prescription medicines only as told by [...] 10/11/2006 Document Revised: 03/24/2018 Document Reviewed: 03/26/2017 [employer] Interactive Patient Education ? 2019 [employer] Normal [facility] ED Patient Summaryon 020 ED Patient Summary [facility] - Emergency Department [address] [place] [address] PATIENT DISCHARGE INSTRUCTIONS Patient Information Name: MAURO NUNEZ Age: 39 Years Date of : 1980 Reason For Visit: Urinary frequency; URINATION PROBLEMS Arrival Time: 03/22/2020 12:44:00 Primary Care Physician: ARMIDA BATISTA Attending Physician: Armida Jin MD Comment: Visit Diagnosis: Diagnoses This Visit Kidney stone (N20.0) Urinary frequency ([id number]) Prescription Information: If you have been given a prescription for narcotics, seek immediate medical attention if you have any difficulty breathing or any sudden status changes such as confusion and sleepiness. If you or anyone you know is experiencing suicidal thoughts, mental health, alcohol and/or drug addiction problems; contact the [facility] 17/05 Crisis Hotline -Text 4HOPE to 607089. If you received any narcotics, sedation, or [...] When: ARMIDA BATISTA [address], [address] [place] [id number] Business (1) Within 3 to 5 days Medication Information: The exam and treatment you received today in the [facility] Emergency Department were for an urgent problem and are not intended as complete care. It is important for you to follow up with a doctor, nurse practitioner, or physician?s compounding assistant for ongoing care. If your symptoms [...] so we can reach you if necessary. [facility] Emergency Department has provided you with a complete list of medications post discharge. Please inform your fancy stitcher/provider of your visit and for further instruction [...] this condition includes: ? Antibiotic medicine. ? Vruc-skb-uxmrstj medicines to treat discomfort. ? Drinking enough [...] these instructions at home: Medicines ? Take hvqr-ffa-nxdrkpu and prescription medicines only as told by [...] 07/21/2006 Document Revised: 04/20/2019 Document Reviewed: 04/20/2019 [employer] Interactive Patient Education ? 2019 [employer] Kidney Stones Kidney stones (urolithiasis) are solid, [...] kidney stones in the future. ? Take vxvq-qjc-lfzzeqm and prescription medicines only as told by [...] 10/11/2006 Document Revised: 03/24/2018 Document Reviewed: 03/26/2017 [employer] Interactive Patient Education ? 2019 [employer] Viruses or Bacteria What?s got you sick? [...] for Disease Control and Prevention June 2014 Normal [facility] Extra Redon 03-22-2020 Tube Collected Yes [facility] Comment on above: Performed By: #### 1 [id number], [id number], [id number] #### [facility] (DEFAULT) [address] [place] [address]1408 UA Xutel5dp 03-22-2020 RBC (U) [#/Vol] 5-10 [facility] Comment on above: Order Comment: Urina lysis Microscopic order added on by [employer] Expert Rules system. Performed By: #### 1 [id number], [id number] #### [facility] (DEFAULT) [address] [place] [address] 40880 UA Bacteria None [facility] Comment on above: Order Comment: Urina lysis Microscopic order added on by [employer] Rules system. Performed By: #### 1 [id number], [id number] #### [facility] (DEFAULT) [address] [place] [address] 92990 UA WBC None Seen [facility] Comment on above: Order Comment: Urina lysis Microscopic order added on by [employer] Rules system. Performed By: #### 1 [id number], [id number] #### [facility] (DEFAULT) [address] [place] [address] 73940 UA w Culture if Ind Standard on 03-22-2020 Breakpoint UA [facility] Comment on above: Performed By: #### 1 [id number], [id number] #### [facility] (DEFAULT) [address] [place] [address] 60025 Color (U) Yellow [facility] Comment on above: Performed By: #### 1 [id number], [id number] #### [facility] (DEFAULT) [address] [place] [address] 67408 Culture? No [facility] Comment on above: Performed By: #### 1 [id number], [id number] #### [facility] (DEFAULT) [address] [place] [address] 89125 Glucose (U) [Mass/Vol] Negative [facility] Comment on above: Performed By: #### 1 [id number], [id number] #### [facility] (DEFAULT) [address] [place] [address] 36186 Ketones Ql (U) Negative Normal [facility] Comment on above: Performed By: #### 1 [id number], [id number] #### [facility] (DEFAULT) [address] [place] [address] 17636 Micro? Indicated [facility] Comment on above: Performed By: #### 1 [id number], [id number] #### [facility] (DEFAULT) [address] [place] [address] 46923 UA Bilirubin Negative Normal [facility] Comment on above: Performed By: #### 1 [id number], [id number] #### [facility] (DEFAULT) [address] [place] [address] 27312 UA Blood LARGE Abnormal NEGATIVE [facility] Comment on above: Performed By: #### 1 [id number], [id number] #### [facility] (DEFAULT) [address] [place] [address] 79442 UA Clarity CLEAR Normal CLEAR [facility] Comment on above: Performed By: #### 1 [id number], [id number] #### [facility] (DEFAULT) [address] [place] [address] 31590 UA Leuk Est Negative Normal NEGATIVE [facility] Comment on above: Performed By: #### 1 [id number], [id number] #### [facility] (DEFAULT) [address] [place] [address] 05726 UA Nitrite Negative Normal NEGATIVE [facility] Comment on above: Performed By: #### 1 [id number], [id number] #### [facility] (DEFAULT) [address] [place] [address] 73188 UA pH 5.5 Normal 5-8 [facility] Comment on above: Performed By: #### 1 [id number], [id number] #### [facility] (DEFAULT) [address] [place] [address] 42017 UA Protein Negative Normal NEGATIVE [facility] Comment on above: Performed By: #### 1 [id number], [id number] #### [facility] (DEFAULT) [address] [place] [address] 48678 UA Spec Grav 1.010 Normal 1.001-1.035 [facility] Comment on above: Performed By: #### 1 [id number], [id number] #### [facility] (DEFAULT) [address] [place] [address] UA Urobilinogen 0.2 mg/dL Normal 0.2-1.0 [facility] Comment on above: Performed By: #### 1 [id number], [id number] #### [facility] (DEFAULT) [address] [place] [address] Urine Source Clean Catch Normal [facility] Comment on above: Performed By: #### 1 [id number], [id number] #### [facility] (DEFAULT) [address] [place] [address] Vital Signs Date Time Vital Sign Value Performing Clinician Facility 12-15-2024 12:17-0500 Body height 171.[address] [facility] 12-15-2024 12:17-0500 Body mass index (BMI) [Ratio] 50.1 kg/m2 [facility] 12-15-2024 12:17-0500 Body temperature 97.7 [degF] [facility] 12-15-2024 12:17-0500 Body weight 147.[address] [facility] 12-15-2024 12:17-0500 Diastolic blood pressure 86 mm[Hg] [facility] 12-15-2024 12:17-0500 Heart rate 64 /min [facility] 12-15-2024 12:17-0500 SaO2% (BldA) [Mass fraction] 98 % [facility] 12-15-2024 12:17-0500 Systolic blood pressure 132 mm[Hg] [facility] 09-18-2024 15:26-0500 Body height 172.7 cm Adalberto Byrne MD Work Phone: [facility] 09-18-2024 15:26-0500 Body mass index (BMI) [Ratio] 47.98 kg/m2 Adalberto Byrne MD Work Phone: [facility] 09-18-2024 15:26-0500 Body weight 143.11 kg Adalberto Byrne MD Work Phone: [facility] 09-18-2024 15:26-0500 Diastolic blood pressure 78 mm[Hg] Adalberto Byrne MD Work Phone: [facility] 09-18-2024 15:26-0500 Heart rate 53 /min Adalberto Byrne MD Work Phone: [facility] 09-18-2024 15:26-0500 SaO2% (BldA) [Mass fraction] 99 % Adalberto Byrne MD Work Phone: [facility] 09-18-2024 15:26-0500 Systolic blood pressure 132 mm[Hg] Adalberto Byrne MD Work Phone: [facility] 08-11-2024 09:10-0400 Body mass index (BMI) [Ratio] 51 kg/m2 [facility] 08-11-2024 09:10-0400 Body temperature 98.1 [degF] [facility] 08-11-2024 09:10-0400 Diastolic blood pressure 88 mm[Hg] [facility] 08-11-2024 09:10-0400 Heart rate 5 /min [facility] 08-11-2024 09:10-0400 SaO2% (BldA) [Mass fraction] 98 % [facility] 08-11-2024 09:10-0400 Systolic blood pressure 144 mm[Hg] [facility] 08-11-2024 08:20-0400 Body height 171.[address] [facility] 08-11-2024 08:20-0400 Body weight 150.[address] [facility] 03-27-2024 11:28-0400 Body height 171.[address] [facility] 03-27-2024 11:28-0400 Body temperature 97.5 [degF] [facility] 03-27-2024 11:28-0400 Diastolic blood pressure 98 mm[Hg] [facility] 03-27-2024 11:28-0400 Heart rate 56 /min [facility] 03-27-2024 11:28-0400 SaO2% (BldA) [Mass fraction] 98 % [facility] 03-27-2024 11:28-0400 Systolic blood pressure 138 mm[Hg] [facility] 01-12-2024 10:19-0400 Body height 171.[address] [facility] 01-12-2024 10:19-0400 Body mass index (BMI) [Ratio] 48.9 kg/m2 [facility] 01-12-2024 10:19-0400 Body weight 143.[address] [facility] 01-12-2024 10:19-0400 Diastolic blood pressure 88 mm[Hg] [facility] 01-12-2024 10:19-0400 Heart rate 56 /min [facility] 01-12-2024 10:19-0400 Respiratory rate 18 /min [facility] 01-12-2024 10:19-0400 Systolic blood pressure 138 mm[Hg] [facility] 12-16-2023 17:00-0500 Diastolic blood pressure 66 mm[Hg] Emelia Barcenas DO Work Phone: [facility] 12-16-2023 17:00-0500 SaO2% (BldA) [Mass fraction] 97 % Emelia Wardiadanko DO Work Phone: [facility] 12-16-2023 17:00-0500 Systolic blood pressure 124 mm[Hg] Emelia Sniadanko DO Work Phone: [facility] 12-16-2023 16:21-0500 Body height 172.7 cm Emelia S[facility]adanko DO [facility] 12-16-2023 16:21-0500 Body mass index (BMI) [Ratio] 47.14 kg/m2 Emelia Sniadanko DO Work Phone: [facility] 12-16-2023 16:21-0500 Body temperature 98.49 [degF] Emelia Wardiadanko DO Work Phone: [facility] 12-16-2023 16:21-0500 Body weight 140.62 kg Emelia Snantoinettenelizabeth DO Work Phone: [facility] 12-16-2023 16:21-0500 Heart rate 71 /min Emelia Salinasnelizabeth DO Work Phone: [facility] 12-16-2023 16:21-0500 Respiratory rate 18 /min Emelia Barcenas DO Work Phone: [facility] 08-11-2023 15:00-0400 Body height 171.45 cm Armida Batista Other [facility] Other 08-11-2023 15:00-0400 Body mass index (BMI) [Ratio] 48.14 kg/m2 Armida Batista Other [facility] Other 08-11-2023 15:00-0400 Body temperature 98 [degF] Armida Batista Other [facility] Other 08-11-2023 15:00-0400 Body weight 141.52 kg Armida Batista Other [facility] Other 08-11-2023 15:00-0400 Diastolic blood pressure 82 mm[Hg] Armida Batista Other [facility] Other 08-11-2023 15:00-0400 Respiratory rate 18 /min Armida Batista Other [facility] Other 08-11-2023 15:00-0400 SaO2% (BldA) [Mass fraction] 98 % Armida Batista Other [facility] Other 08-11-2023 15:00-0400 Systolic blood pressure 126 mm[Hg] Armida Batista Other [facility] Other 06-10-2023 10:50-0400 Body height 171.45 cm Armida Batista Other [facility] Other 06-10-2023 10:50-0400 Body mass index (BMI) [Ratio] 49.99 kg/m2 Armida Lester Other [facility] Other 06-10-2023 10:50-0400 Body temperature 98.4 [degF] Armida Saúlijm Other [facility] Other 06-10-2023 10:50-0400 Body weight 146.97 kg Armida Saúljim Other [facility] Other 06-10-2023 10:50-0400 Diastolic blood pressure 86 mm[Hg] Armida Haysjim Other [facility] Other 06-10-2023 10:50-0400 Respiratory rate 18 /min Armida Batista Other [facility] Other 06-10-2023 10:50-0400 SaO2% (BldA) [Mass fraction] 98 % Armida Batista Other [facility] Other 06-10-2023 10:50-0400 Systolic blood pressure 136 mm[Hg] Armida Batista Other [facility] Other 05-04-2023 12:40-0400 Body height 171.45 cm Armida Lester Other [facility] Other 03-08-2023 15:40-0400 Body height 171.45 cm Libra Blades Other [facility] Other 03-08-2023 15:40-0400 Body mass index (BMI) [Ratio] 49.99 kg/m2 Libra Blades Other [facility] Other 03-08-2023 15:40-0400 Body weight 146.97 kg Libra Evans Other [facility] Other 02-10-2023 15:40-0400 Body height 171.45 cm Armida Batista Other [facility] Other 02-10-2023 15:40-0400 Body mass index (BMI) [Ratio] 51.23 kg/m2 Armida Batista Other [facility] Other 02-10-2023 15:40-0400 Body temperature 98.1 [degF] Armida Batista Other [facility] Other 02-10-2023 15:40-0400 Body weight 150.6 kg Armida Batista Other [facility] Other 02-10-2023 15:40-0400 Diastolic blood pressure 84 mm[Hg] Armida Batista Other [facility] Other 02-10-2023 15:40-0400 Respiratory rate 18 /min Armida Batista Other [facility] Other 02-10-2023 15:40-0400 SaO2% (BldA) [Mass fraction] 97 % Armida Batista Other [facility] Other 02-10-2023 15:40-0400 Systolic blood pressure 132 mm[Hg] Armida Batista Other [facility] Other 01-08-2023 10:50-0400 Body height 171.45 cm Armida Batista Other [facility] Other 01-08-2023 10:50-0400 Body mass index (BMI) [Ratio] 51.23 kg/m2 Armida Batista Other [facility] Other 01-08-2023 10:50-0400 Body temperature 97.8 [degF] Armida Batista Other [facility] Other 01-08-2023 10:50-0400 Body weight 150.6 kg Armida Lester Other [facility] Other 01-08-2023 10:50-0400 Diastolic blood pressure 84 mm[Hg] Armida Lester Other [facility] Other 01-08-2023 10:50-0400 Respiratory rate 18 /min Armida Batista Other [facility] Other 01-08-2023 10:50-0400 SaO2% (BldA) [Mass fraction] 98 % Armida Batista Other [facility] Other 01-08-2023 10:50-0400 Systolic blood pressure 132 mm[Hg] Armida Batista Other [facility] Other 12-12-2022 10:00-0500 Body height 171.45 cm Sheri Alexandra Other [facility] Other 12-12-2022 10:00-0500 Body mass index (BMI) [Ratio] 52.15 kg/m2 Sheri Alexandra Other [facility] Other 12-12-2022 10:00-0500 Body temperature 99.9 [degF] Sheri Alexandra Other [facility] Other 12-12-2022 10:00-0500 Body weight 153.32 kg Sheri Alexandra Other [facility] Other 12-12-2022 10:00-0500 Diastolic blood pressure 70 mm[Hg] Sheri Alexandra Other [facility] Other 12-12-2022 10:00-0500 Respiratory rate 18 /min Sheri Alexandra Other [facility] Other 12-12-2022 10:00-0500 SaO2% (BldA) [Mass fraction] 98 % Sheri Alexandra Other [facility] Other 12-12-2022 10:00-0500 Systolic blood pressure 128 mm[Hg] Sheri Alexandra Other [facility] Other 12-08-2022 10:10-0500 Body height 171.45 cm Armida Batista Other [facility] Other 10-02-2022 10:50-0500 Body height 171.45 cm Armida Batista Other [facility] Other 10-02-2022 10:50-0500 Body mass index (BMI) [Ratio] 58.01 kg/m2 Armida Batista Other [facility] Other 10-02-2022 10:50-0500 Body temperature 97.8 [degF] Armida Batista Other [facility] Other 10-02-2022 10:50-0500 Body weight 170.55 kg Armida Batista Other [facility] Other 10-02-2022 10:50-0500 Diastolic blood pressure 86 mm[Hg] Armida Batista Other [facility] Other 10-02-2022 10:50-0500 Respiratory rate 18 /min Armida Batista Other [facility] Other 10-02-2022 10:50-0500 SaO2% (BldA) [Mass fraction] 97 % Armida Batista Other [facility] Other 10-02-2022 10:50-0500 Systolic blood pressure 136 mm[Hg] Armida Batista Other [facility] Other 08-13-2021 12:10-0400 Body height 171.45 cm Armida Batista Other [facility] Other 08-13-2021 12:10-0400 Body mass index (BMI) [Ratio] 55.55 kg/m2 Armida Batista Other [facility] Other 08-13-2021 12:10-0400 Body temperature 98.3 [degF] Armida Batista Other [facility] Other 08-13-2021 12:10-0400 Body weight 163.3 kg Armida Batista Other [facility] Other 08-13-2021 12:10-0400 Diastolic blood pressure 98 mm[Hg] Armida Batista Other [facility] Other 08-13-2021 12:10-0400 Respiratory rate 20 /min Armida Batista Other [facility] Other 08-13-2021 12:10-0400 SaO2% (BldA) [Mass fraction] 98 % Armida Batista Other [facility] Other 08-13-2021 12:10-0400 Systolic blood pressure 138 mm[Hg] Armida Batista Other [facility] [employer] Other Encounters Encounter Date Encounter Type Care Provider Facility Start: 12-15-2024 End: 12-15-2024 ambulatory [facility] Work Phone: Start: 12-15-2024 End: 12-15-2024 Patient encounter procedure [facility] Work Phone: Start: 11-07-2024 [facility] Start: 10-31-2024 End: 10-31-2024 [facility] Start: 10-24-2024 End: 10-24-2024 Emergency department [facility] Start: 09-30-2024 End: 10-03-2024 Refill [facility]berto Byrne [facility] Comment on above: Med Refill Start: 09-18-2024 End: 09-18-2024 Office outpatient visit 15 minutes Adalberto Byrne MD Work Phone: [facility] Comment on above: Shortness of breath (Primary Dx); Primary hypertension Start: 09-18-2024 End: 09-18-2024 ambulatory ADALBERTO BYRNE [facility] Start: 09-15-2024 End: 09-15-2024 Telephone encounter Audrey Kearns C[facility] Start: 09-01-2024 End: 09-01-2024 Patient encounter procedure Armida Batista DO Work Phone: [facility] Work Phone: Start: 09-01-2024 End: 09-01-2024 ambulatory Armida Batista DO Work Phone: [facility] Work Phone: Start: 08-11-2024 End: 08-11-2024 ambulatory [facility] Work Phone: Start: 08-11-2024 End: 08-11-2024 Patient encounter procedure [facility] Phys[facility] Work Phone: Start: 07-19-2024 End: 07-19-2024 Emergency department patient visit ARMIDA Whitehead [facility] Start: 07-13-2024 Non-patient / [facility] Work [facility]: Start: 07-12-2024 End: 07-12-2024 Emergency department patient visit ARMIDA Whitehead [facility] Start: 03-27-2024 End: 03-27-2024 ambulatory [facility] Work Phone: Start: 03-27-2024 End: 03-27-2024 [facility] Start: 02-28-2024 End: 02-28-2024 ambulatory KELIN DOMINGUEZ Not Available Start: 02-13-2024 Non-patient / Non-visit [facility] Work Phone: Start: 01-12-2024 End: 01-12-2024 ambulatory [facility] Work Phone: Start: 01-12-2024 End: 01-12-2024 Patient encounter procedure [facility] Work Phone: Start: 12-20-2023 Non-patient / Non-visit [facility] Work Phone: Start: 12-16-2023 End: 12-16-2023 Emergency department patient visit EMELIA BARCENAS [facility] Start: 12-16-2023 End: 12-16-2023 Emergency department patient visit Emelia Barcenas DO Work Phone: [facility] Emergency Department Comment on above: Acute upper respirat ory infection (Primary Dx) Start: 12-09-2023 Non-patient / Non-visit [facility] Work Phone: Start: 10-12-2023 End: 10-12-2023 ambulatory Armida Batista Other [employer] Other Start: 10-12-2023 Telephone encounter Armida Batista [facility] [place] Start: 08-11-2023 End: 08-11-2023 ambulatory Armida Batista Other [facility] Other Start: 08-11-2023 Office outpatient vi sit 25 minutes Armida Batista [facility] [place] Start: 08-11-2023 Telephone encounter Armida Batista [facility] Start: 07-23-2023 End: 07-23-2023 ambulatory Armida Batista Other [employer] Other Start: 07-23-2023 Telephone encounter Armida Batista [facility] [place] Start: 07-14-2023 End: 07-14-2023 ambulatory Armida Batista Other [employer] Other Start: 07-14-2023 Telephone encounter Armida Batista [facility] Start: 07-07-2023 End: 07-07-2023 ambulatory Armida Batista Other [employer] Other Start: 07-07-2023 Telephone encounter Armida Lester [facility] Start: 06-10-2023 End: 06-10-2023 ambulatory Armida Batista Other [employer] Other Start: 06-10-2023 Office outpatient vi sit 15 minutes Armida Batista [facility] [place] Start: 05-06-2023 End: 05-06-2023 ambulatory Armida Batista Other [facility] Other Start: 05-06-2023 Telephone encounter Armida Saúljim [facility] [place] Start: 05-04-2023 End: 05-04-2023 ambulatory Armida Batista Other [facility] Other Start: 05-04-2023 Telephone encounter Armida Batista [facility] [place] Start: 03-08-2023 End: 03-08-2023 ambulatory Libra Garcíajennifer Other [facility] Other Start: 03-08-2023 Office outpatient ne w 45 minutes Libra Cristina [facility] Start: 03-05-2023 End: 03-05-2023 ambulatory Armida Batista Other [facility] Other Start: 03-05-2023 Telephone encounter Armida Batista [facility] [place] Start: 03-03-2023 End: 03-03-2023 ambulatory Armida Batista Other [facility] Other Start: 03-03-2023 Telephone encounter Armida Batista [facility] [place] Start: 02-25-2023 End: 02-25-2023 ambulatory Armida Batista Other [facility] Other Start: 02-25-2023 Telephone encounter Armida Batista [facility] [place] Start: 02-22-2023 End: 02-22-2023 ambulatory Armida Batista Other [facility] Other Start: 02-22-2023 Telephone encounter Armida Batista [facility] [place] Start: 02-15-2023 End: 02-16-[address] AMRIDA BATISTA [facility] Other Start: 02-15-2023 Telephone encounter Armida Batista [facility] [place] Start: 02-10-2023 End: 02-10-2023 ambulatory Armida Batista Other [facility] Other Start: 02-10-2023 Office outpatient vi sit 15 minutes Armida Batista [facility] [place] Start: 02-09-2023 End: 02-10-[address] ARMIDA BATISTA Facility:[facility] Start: 02-08-2023 End: 02-08-2023 ambulatory Armida Batista Other [facility] Other Start: 02-08-2023 Telephone encounter Armida Batista [facility] [place] Start: 01-08-2023 End: 01-08-2023 ambulatory Armida Batista Other [facility] Other Start: 01-08-2023 Office outpatient vi sit 25 minutes Armida Batista [facility] [place] Start: 12-14-2022 End: 12-14-2022 ambulatory Armida Batista Other [facility] Other Start: 12-14-2022 Telephone encounter Armida Batista [facility] [place] Start: 12-12-2022 End: 12-12-2022 ambulatory Sheri Alexandra Other [facility] Other Start: 12-12-2022 Office outpatient vi sit 15 minutes Sheri Alexandra [facility] Start: 12-08-2022 End: 12-08-2022 ambulatory Armida Batista Other [facility] Other Start: 12-08-2022 Telephone encounter Armida Batista [facility] Start: 11-30-2022 End: 11-30-2022 ambulatory Armida Batista Other [facility] Other Start: 11-30-2022 Telephone encounter Armida Batista [facility] [place] Start: 10-02-2022 Office outpatient vi sit 15 minutes Armida Batista [facility] [place] Start: 10-02-2022 Telephone encounter Armida Batista [facility] Start: 10-02-2022 End: 10-03-[address] ARMIDA BATISTA [employer] Other Start: 09-08-2021 End: 09-08-2021 ambulatory Armida Batista Other [facility] [employer] Other Start: 09-08-2021 Telephone encounter Armida Batista [facility] [place] Start: 08-22-2021 Telephone encounter Armida Batista [facility] [place] Start: 08-13-2021 Office outpatient vi sit 15 minutes Armida Batista [facility] [place] Procedures Date Procedure Procedure Detail Performing Clinician Start: 09-18-2024 Follow-up visit Follow-up ALEXYS BYRNE Start: 02-13-2024 End: 02-13-2024 Throat culture Start: 12-16-2023 Radiologic exam ches t single view Emelia Barcenas DO Work Phone: Start: 12-16-2023 COVID-19 & INFLUENZA COMBO Emelia Barcenas DO Work Phone: Plan of Treatment Date Care Activity Detail Author Start: 09-18-2025 Adult BMI Screening Adult BMI Screening [facility] Start: 09-18-2025 Tobacco Screening Tobacco Screening [facility] Start: 07-19-2025 Tobacco Screening Tobacco Screening [facility] Start: 07-12-2025 Adult BMI Screening Adult BMI Screening [facility] Start: 12-15-2024 Patient referral [facility] Work Phone: Start: 09-18-2024 End: 09-18-2024 Patient encounter procedure 09/18/2024 3:45 PM EST [facility] [address] [place] [id number] Adalberto Byrne MD [address] [place] [address] [facility] Start: 06-25-2024 COVID-19 Vaccine ( season) COVID-19 Vaccine ( season) [facility] Start: 06-25-2024 Influenza vaccination Influenza Vaccine [facility] Start: 05-25-2023 Influenza vaccination Flu vaccine (#1) [facility] Start: 2020 Lipid panel [facility]ids [facility] Start: 2015 Diabetes screen Diabetes screen [facility] Start: 1999 DTaP,Tdap and Td Vaccines (1 - Tdap) DTaP,Tdap and Td Vaccines (1 - Tdap) [facility] Start: 1999 DTaP/Tdap/Td vaccine (1 - Tdap) DTaP/Tdap/Td vaccine (1 - Tdap) [facility] Start: 1998 Adult BMI Follow Up Plan Adult BMI Follow Up Plan [facility] Start: 1998 Hepatitis C screening Hepatitis C screen [facility] Start: 1995 HIV screening HIV screen [facility] Start: 1992 Depression Monitoring Depression Monitoring [facility] Start: 1992 Depression Screening Depression Screening [facility] Start: 1981 Varicella vaccine (1 of 2 - 2-dose childhood series) Varicella vaccine (1 of 2 - 2-dose childhood series) [facility] Start: 02-06-1981 COVID-19 Vaccine (#1) COVID-19 Vaccine (#1) [facility] Start: 1980 Hepatitis B vaccine (1 of 3 - 3-dose series) Hepatitis B vaccine (1 of 3 - 3-dose series) [facility] Cardiovascular stres s testing [facility] Comprehensive metabo lic 2000 panel - Serum or Plasma [facility] Patient Education Low back pain in adults [facility] Work Phone: Patient referral [facility] Work Phone: XR Sacrum and Coccyx GE 2 Views [facility] Immunizations Immunization Date Immunization Notes Care Provider Fa cility 10-30-2022 Seasonal, quadrivalent, recombinant, injectable influenza vaccine, preservative free [facility] 10-30-2022 influenza virus vaccine, unspecified formulation [facility] 08-20-2021 COVID-19 mRNA-1273 (Moderna) [facility] 08-13-2021 influenza, seasonal, injectable Armida Batista Other [facility] Other 02-10-2021 COVID-19 Vaccine Moderna - Documentation Purposes Only Armida Batista Other [facility] 01-13-2021 COVID-19 Vaccine Moderna - Documentation Purposes Only Armida Batista Other [facility] NEGATED: Highlighted row has not occurred!08-13-2021 influenza, seasonal, injectable Armida Batista Other [facility] Other Payers Date Payer Category Payer Medicaid [id number] 2021 Commercial Managed Formerly [facility] [employer] Member Subscriber Plan / Payer (Effective 2021-Present) Name: Mauro Nunze Relation to Subscriber: Self Name: Mauro Nunez Payer ID: Not on file Type: Not on file Address: [place] [id number] 2021 Unknown [id number] 2018 Unknown [id number] [id number] 1980 Unknown [id number] 2.16.840.1.856062.3.579.2. 593 1980 Unknown [id number] 2.16.840.1.098273.3.579.2. 593 1980 Unknown [id number] 2.16.840.1.338807.3.579.2. 593 1980 Unknown [id number] 2.16.840.1.101626.3.579.2. 754 1980 Unknown [id number] 2.16.840.1.813351.3.579.2. 1259 1980 Unknown [id number] 2.16.840.1.887288.3.579.2. 1286 1980 Unknown [id number] 2.16.840.1.960244.3.579.2. 1286 1980 Unknown [id number] 2.16.840.1.526200.3.579.2. 1286 1980 Unknown [id number] 2.16.840.1.000990.3.579.2. 1286 1980 Unknown [id number] 2.16.840.1.527157.3.579.2. 1286 1980 Unknown [id number] 2.16.840.1.876944.3.579.2. 1286 1980 Unknown [id number] 2.16.840.1.144492.3.579.2. 1286 1980 Unknown [id number] 2.16.840.1.824769.3.579.2. 1286 1959 Unknown [id number] [id number] Medicaid [id number] Self-pay Self Pay [id number] Unknown [employer] [place] SHRUTHI [id number] Social History Date Type Detail Facility Unknown if ever smoked [facility] Other Start: 11-18-2020 End: 12-16-2023 Sex Assigned At [employer] Other Start: 12-16-2023 End: 01-12-2024 Tobacco smoking status NHIS Never smoked tobacco [facility] Start: 12-16-2023 End: 09-18-2024 Tobacco use and exposure Smokeless tobacco non-user [facility] Work Phone: Start: 12-16-2023 End: 09-18-2024 Alcohol intake Ex-drinker (finding) [employer] Phone: Start: 11-18-2020 End: 12-16-2023 History of Social function [employer] Phone: Start: 1980 Sex Assigned At Not on file [facility] [employer] Work Phone: Start: 1980 Sex Assigned At Male F [facility] Start: 09-02-2024 Sex Patient sex un known (finding) [facility] Childcare Unknown [facility] Start: 05-30-2015 End: 12-15-2024 Sex Male (finding) [facility] [employer] Start: 11-21-2022 Tobacco smoking stat [facility] Ex-smoker [facility] History of tobacco use Current smoker [facility] Clinical Notes 08-13-2021 to 09-30-2024 Telephone Encounter - Joselo Richard RN - 09/30/2024 8:25 AM ESTTelephone Encounter - Joselo Richard RN - 09/30/2024 8:25 AM Deanna Byrne MD - 09/18/2024 3:45 PM EST Note Date & Type Note Facility 09-30-2024 Miscellaneous Notes OV 09/18/24 07/19/24 CMP documented in this encounter [facility] 09-30-2024 Telephone encounter Note OV 09/18/24 07/19/24 CMP [facility] 09-18-2024 History of Present illness Narrative Mauro Nunez Date of visit: 09/18/2024 Date of : 1980 Age: 44 y.o. Patient Active Problem List Diagnosis Generalized anxiety disorder Hypertension Shortness of breath Dizziness No Known Allergies Current Outpatient Medications Medication Sig Dispense Refill cholecalciferol, vitamin D3, (VITAMIN D3 ORAL) Take 5,000 Units by mouth in the morning. coenzyme Q10 200 mg capsule Take 200 mg by mouth in the morning. hydroCHLOROthiazide (HYDRODIURIL) 25 mg tablet Take 1 tablet (25 mg total) by mouth daily. LORazepam (ATIVAN) 0.5 mg tablet Take 1 tablet (0.5 mg total) by mouth every 6 (six) hours as needed for anxiety. metoprolol succinate XL (TOPROL-XL) 100 mg 24 hr tablet Take 1 tablet (100 mg total) by mouth in the morning. omega 0-lpx-hbf-fish oil (Fish OiL) 300-1,000 mg capsule Take by mouth daily. potassium chloride (K-TAB,KLOR-CON) 10 MEQ CR tablet Take 1 tablet (10 mEq total) by mouth in the morning. 90 tablet 3 No current facility-administered medications for this visit. Chief Complaint Patient presents with Follow-up OV F/U 6 MO NO TESTS L/S [facility] EKG 07/19/24 History of Present Illness Mauro Nunez was seen in follow-up in the [place] office. Records are reviewed. He feels well. He continues to diet and exercise. His weight has been slowly dropping. He continues to pay attention to his diet. He has multiple blood pressure checks at home which seem to be in the 130s mostly and up to the low 140 systolic. He is not having any dizziness or lightheaded sensation. He is had no syncope or near-syncope. Heart rates at home are in the 40s to 50s it seems he is asymptomatic with this. Potassium is measured mildly low on a couple of occasions. He has had a couple of anxiety attacks over the past year but for the most part seems to be managing well Past Medical History: Diagnosis Date Anxiety Hypertension ASHA (obstructive sleep apnea) No data recorded No data recorded No data recorded History reviewed. No pertinent surgical history. Family History Problem Relation Age of Onset Hypertension Mother Kidney disease Mother Arthritis Mother Social History Socioeconomic History Marital status: Single Spouse name: Not on file Number of children: Not on file Years of education: Not on file Highest education level: Not on file Occupational History Not on file Tobacco Use Smoking status: Never Smokeless tobacco: Never Vaping Use Vaping status: Never Used Substance and Sexual Activity Alcohol use: Not Currently Drug use: Never Sexual activity: Defer Other Topics Concern Caffeine Use No Social History Narrative Not on file Social Drivers of Health Financial Resource Strain: Not on file Food Insecurity: No Food Insecurity (09/18/2024) Hunger Screening Food Insecurity - Worry: Never True Food Insecurity - Inability: Never True Transportation Needs: Not on file Physical Activity: Not on file Stress: Not on file Social Connections: Not on file Interpersonal Safety: Not on file Housing Instability: Not on file Review of Systems Review of Systems Constitutional: Negative. HENT: Negative. Eyes: Negative. Cardiovascular: Negative. Respiratory: Negative. Endocrine: Negative. Hematologic/Lymphatic: Negative. Skin: Negative. Musculoskeletal: Positive for back pain. Gastrointestinal: Negative. Neurological: Positive for loss of balance. Psychiatric/Behavioral: Negative for depression. The patient is not nervous/anxious. Allergic/Immunologic: Positive for environmental allergies. Vascular: Negative. CARDIOVASCULAR: Please review HPI. Physical Examination General appearance: Alert, oriented and cooperative. In no acute distress. Skin: Warm and dry to touch. Head: Normocephalic, without obvious abnormality, atraumatic. Ears, Nose, Mouth, Throat: Throat clear without erythema or exudate. Dentition intact. Eyes: Conjunctivae unremarkable, EOM intact. Neck: No JVD, No carotid bruit. Neck supple, trachea midline. Respiratory: Clear to auscultation bilaterally, no use of accessory muscles. Cardiovascular: RRR with normal S1 and S2 with no murmurs. Gastrointestinal: Soft, non-tender. Bowel sounds normal. Musculoskeletal: No peripheral edema. Neurologic: Oriented to time, person and place, affect appropriate. No focal/major motor defects noted. Psychiatric: Appropriate mood, memory and judgement. VITAL SIGNS: BP 132/78 (BP Site: Left Arm, BP Postition: Sitting, BP CUFF SIZE: L (13-17 inches)) Pulse 53 Ht 172.7 cm (5' 7.99 ) Wt (!) 143.1 kg (315 lb 8 oz) SpO2 99% BMI 47.98 kg/m No orders of the defined types were placed in this encounter. There are no discontinued medications. IMPRESSIONS/PLAN 1. Shortness of breath 2. Primary hypertension 1. Essential hypertension. He seems to be about at goal. I would at present continue him on the current dose of hydrochlorothiazide and metoprolol. I would continue relatively frequent checks and continue efforts at diet exercise and weight loss. 2. Anxiety. He does report that his anxiety symptoms have been generally under control . 3. Dizziness. These symptoms seem to pretty much resolved over the past year. 4. Normal left ventricular systolic function without valvulopathy. TODAYS ORDERS No orders of the defined types were placed in this encounter. FOLLOW UP No follow-ups on file. PCP: ARMIDA BATISTA DO Referring Physician: Armida Batista DO [address] [place] [address] documented in this encounter [facility] 09-15-2024 Miscellaneous Notes Called patient to remind them to bring their most current copy of their medication list with them to their appt. Patient verbalizes understanding. documented in this encounter [facility] 09-15-2024 Telephone encounter Note Called patient to remind them to bring their most current copy of their medication list with them to their appt. Patient verbalizes understanding. [facility] 08-11-2024 Evaluation note Authored August 11, 2024 8 :54am The above note written by __ _Darryn Baptiste____ acting as human recorder, note dictated by Dr. Hudson .I performed the above HPI, ROS, and Examination. I formulated and dictated the treatment plan and was present for entire encounter. Armida Batista D.O. [facility] Work Phone: 1(178) 149-970803-20-2024 Evaluation note* Author Armida Batista [facility] Authored January 12, 2024 11: 28am The above note written by __ _Darryn Baptiste____ acting as human recorder, note dictated by Dr. Hudson .I performed the above HPI, ROS, and Examination. I formulated and dictated the treatment plan and was present for entire encounter. Armida Batista D.O. [facility] Work Phone: 1(929) 117-902702-22-2024 Hospital Discharge instructions* Discharge Instructions* Emelia Barcenas DO - 12/16/2023 5:06 PM EST Take Tylenol or Motrin for any fevers or pain. Follow up with your PCP in the next 3 days for follow up. Return to the ER if you develop worsening symptoms, increased trouble breathing, inability to keep fluids down, or if you have any other concerns. * Attachments The following attachments cannot be sent through Care Everywhere. * URI (Upper Respiratory Infection) (Singaporean) documented in [facility] Work Phone: 1(283) 569-608010-18-2023 Evaluation note* Encounter Date Diagnosis Assessment Notes Treatment Notes Treatment Clinical Notes Jul, Anxiety (ICD-10 - F41.9) [facility] Other 10-18-2023 Evaluation note* Encounter Date Diagnosis Assessment Notes Treatment Notes Treatment Clinical Notes Jul, Essential hypertension (ICD-10 - I10) He returns to see his router operator radial on 09-01-23. He presents with blood pressure readings that he has taken on his own that seem to be improving with his weight loss. He has lost 15 pounds in the last three weeks. He voices that the router operator radial told him that his bradycardia was not [...] is waiting to see a counselor in [place]. He uses the Ativan if needed. It [...] fat to be on keto. He loves cameroonian fries but has not had one this [...] his dad has prostate cancer. 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 Free testosterone is 87.5. Sex hormone binding globulin is 35.9 which is good. Jul, Nocturia (ICD-10 - R35.1) [facility] Other 09-20-2023 Evaluation note* Encounter Date Diagnosis Assessment Notes Treatment Notes Treatment Clinical Notes Jun, Anxiety (ICD-10 - F41.9) [facility] Other 09-13-2023 Evaluation note* Encounter Date Diagnosis Assessment Notes Treatment Notes Treatment Clinical Notes Jun, Anxiety (ICD-10 - F41.9) [facility] Other 08-17-2023 Evaluation note* Encounter Date Diagnosis [...] for anxiety and not depression, no known long-term issues with this medication. Will start him [...] voices that he did recently see a router operator radial for evaluation. I did independently review his [...] he eats more of the keto foods. [facility] Other 07-11-2023 Evaluation note* Encounter Date Diagnosis Assessment Notes Treatment Notes Treatment Clinical Notes Apr, Anxiety (ICD-10 - F41.9) [facility] Other 07-11-2023 Evaluation note* Encounter Date Diagnosis [...] go to a specific shoe store in [place] to purchase these shoes. He does not [...] hypertension (ICD-10 - I10) He saw Dr. Byrne a router operator radial who ordered an echocardiogram. He voices that [...] Apr, Other 12:46 PM - 12:56 PM [facility] Other 05-15-2023 Evaluation note* Encounter Date Diagnosis Assessment Notes Treatment Notes Treatment Clinical Notes February, Lumbar pain (ICD-10 - M54.50) [facility] Other 05-10-2023 Evaluation note* Encounter Date Diagnosis Assessment Notes Treatment Notes Treatment Clinical Notes February, Essential hypertension (ICD-10 - I10) [facility] Other 04-24-2023 Evaluation note* Encounter Date Diagnosis Assessment Notes Treatment Notes Treatment Clinical Notes Jan, Lumbar pain (ICD-10 - M54.50) [facility] Other 04-19-2023 Evaluation note* Encounter Date Diagnosis [...] NSAID medication while on the Medrol dose maynor. Side effects/risks/benefi ts of medication were reviewed. [...] anxiety. He is to continue to monitor. [facility] Other 04-17-2023 Evaluation note* Encounter Date Diagnosis Assessment Notes Treatment Notes Treatment Clinical Notes Jan, Back pain (ICD-10 - M54.9) Jan, History of kidney stones (ICD-10 - Z87.442) [facility] Other 03-17-2023 Evaluation note* Encounter Date Diagnosis [...] abuse treatments are being prescribed. Dec, Other long-term (current) drug therapy (ICD-10 - Z79.899) Dec, [...] reason for him to push water daily. [facility] Other 02-18-2023 Evaluation note* Encounter Date Diagnosis [...] no improvement in 2 to 3 days. 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 9:34 AM - 9:50 AM [facility] Other 02-01-2023 History general Narrative - Reported* Type Description Date Medical History High Blood Pressure Medical History Hx of Anxiety in 20's-no meds david gonzalez Medical History Fatty liver infiltrate Medical History ASHA Medical History COVID 11/2022 Surgical History Dermatology bertha Diana off 2015 [facility] Other 02-01-2023 History general Narrative - Reported* Type Description Date Medical History High Blood Pressure Medical History Hx of Anxiety in 20's-no medjennifer gonzalez Medical History Fatty liver infiltrate Medical History ASHA Medical History COVID 11/2022 Medical History chronic depression Medical History anxiety Medical History obesity Surgical History Dermatology bertha Diana off 2015 [facility] Other 12-09-2022 NotePROCEDURE: XR SHOULDER LT 2V or > COMPARISON: None. HISTORY: Pain of left shoulder joint FINDINGS: BONES:No fracture, acute abnormality, or significant arthropathy. SOFT TISSUES:Negative. No visible soft tissue swelling. EFFUSION:None visible. OTHER: Negative. IMPRESSION: No acute abnormality Electronically authenticated by: ARMIDA HERRERA Date: 2022-10-02 12:40[facility]12-09-2022 Evaluation note* Encounter Date Diagnosis Assessment Notes [...] for him. He was given Ativan in 2019. He would like to have Ativan on [...] [facility] report was reviewed, no discrepancies noted. [facility] Other 10-29-2021 Evaluation note* Encounter Date Diagnosis Assessment Notes Treatment Notes Treatment Clinical Notes Jul, Essential hypertension (ICD-10 - I10) Jul, Chest pain (ICD-10 - R07.9) [facility] Other 10-20-2021 Evaluation note* Encounter Date Diagnosis [...] he can return to work on 08-18-21 [facility] Other Evaluation noteNo InformationNort M.[employer]. [employer] Other Evaluation note* Diagnosis Acute upper respiratory infection- Primary Acute upper respiratory infections of unspecified site documented in this encounter [facility] Work Phone: evaluation note* Author Armida Batista [facility] Authored January 12, 2024 11: 28am The above note written by __ _Darryn Baptiste____ acting as human recorder, note dictated by Dr. Hudson .I performed the above HPI, ROS, and Examination. I formulated and dictated the treatment plan and was present for entire encounter. Armida Batista D.O. [facility] Work Phone: Evaluation note* Diagnosis Onset Date Resolution Status Anxiety acute Chest pain acute Essential (primary) hypertension acute Obesity acute Tachycardia acute [facility] Work Phone: Evaluation note* Diagnosis Shortness of breath- Primary Primary hypertension Unspecified essential hypertension [facility] Diagnosis Onset Date Resolution Status Admit Date Anxiety acute December 15, 2024 12:16pm Elevated PSA acute November 12:16pm Essential (primary) hypertension acute December 15, 2 025 12:16pm Exposure to sexually transmitted disease (STD) acute Februa 2024 12:16pm Hemorrhoid acute December 15, 2024 12:16pm Lumbar pain acute November 12:16pm Renal calculi acute December 152024 12:16pm Vitamin B12 deficiency acute Fe bruary 2024 12:16pm Weight loss acute November 12:16pm [facility] [employer] [place] Work Phone: Hisgpic general Narrative - Reported* Type Description Date Medical History High Blood Pressure Medical History Hx of Anxiety in 20's-no meds ta carlos Medical History Fatty liver infiltrate Medical History ASHA Surgical History [facility], froze les ion off 2015 [facility] [employer] Other Hisjikk general Narrative - [facility] v[facility] Other Hospital Discharge instructionsAmbulatory Orders* Referral to General Surgery Time Frame: 12/15/24, Location: None Selected [facility] [employer] Work Phone: InstructionsNot on filedocumented in this encounter [facility] SystemInstructionsNot on filedocumented in this encounter [employer] Summary Purpose Family History Relationship Condition Age at Onset Recorded Date/T regina father History of malignant neoplasm of prostate Unknown Malignant neoplasm Unknown grandparent Unknown Not Specified Hypertension Unknown Relationship Condition Age at Onset Recorded Date/T regina father History of malignant neoplasm of prostate Unknown Malignant neoplasm Unknown grandparent Unknown mother Hypertension Unknown Advance Directives Advance Directive Response Recorded Date/ Time Advance Directives No January 09 9:09am Advance Directive Response Recorded Date/ Time Advance Directives No January 09 8:09am Reason for Referral Reason appt consult to nataliia ko low pulse/dizziness/HTN Diagnosis 1 Essential hypertensi on (I10) Referral Organization [facility] Family Medicin e Jese Referring Provider First Name Armida Referring Provider Last Name Lester Referring Provider Specialty Family Prac cindy Referred Organization [facility] Referred Address [address],[place], [place],[address] Referred Provider Specialty Cardiology Referral Priority Routine General Notes Libra Bronson 03/03/2023 10:32:49 AM > referral faxed to [facility]fer at [phone] with TE message, last visit note, EKG report, ER and EKG from 10/2022, Coronary Calcium report and insurance cards. pt understands he will be contacted to schedule this appt. Reason appt consult for a bnormal MRI lumbar spine/L4-L5 disc protrusion Diagnosis 1 Lumbar pain (M54.50) Diagnosis 2 Abnormal MRI, lumbar spine (R93.7) Referral Organization [facility] Family Petey Stock Referring Provider First Name Armida Referring Provider Last Name Lester Referring Provider Specialty Family Prac cindy Referred Organization [facility] Referred Provider Libra Evans Referred Address [address] [place] [phone] Referred Provider Specialty Neurological Surgery Referral Priority Routine General Notes Libra Bronson 02/23/2023 02:26:53 PM > referral sent p2p with MRI report. pt understands he will be contacted to schedule this appt. Chief Complaint and Reason for Visit Chief Complaint Amb Documentation Dizziness Reason for Visit Anemia Anxiety Cervical pain Dizziness Ecchymosis Facial pain Muscle tension pain Chief Complaint Dizziness review labs Reason for Visit Anemia Anxiety Cervical pain Dizziness Ecchymosis Facial pain Muscle tension pain Anxiety Dizziness Essential (primary) hypertension Thrush Vitamin B12 deficiency Chief Complaint Amb Documentation med refill Ativan Reason for Visit Anxiety Chest pain Essential (primary) hypertension Obesity Tachycardia Chief Complaint Admit Date Amb Documentation July 13, 2024 10:47am med refill Ativan August 11, 2024 9 :02am r07.9 r00.0 September 01, 2024 1 :17pm Reason for Visit Admit Date Anxiety August 11, 2024 9 :02am Chest pain August 11, 2024 9 :02am Essential (primary) hypertension August 11, 2024 9:02am Obesity August 11, 2024 9 :02am Tachycardia August 11, 2024 9 :02am Chief Complaint Admit Date review labs December 15, 2024 12:16pm Reason for Visit Admit Date Anxiety December 15, 2024 12:16pm Elevated PSA December 15, 2024 12:16pm Essential (primary) hypertension Februar 2024 12:16pm Exposure to sexually transmitted disease (STD) December 15, 2024 12:16pm Hemorrhoid December 15, 2024 12:16pm Lumbar pain December 15, 2024 12:16pm Renal calculi December 15, 2024 12:16pm Vitamin B12 deficiency December 15 12:16pm Weight loss December 15, 2024 12:16pm Additional Source Comments (unrecognized sect ion and content) No Status Records FoundNo Status Records FoundNo Status Records FoundNo Status Records FoundNo Status Records FoundNo Status Records FoundNo Status Records FoundNo Status Records Found INFORMATION SOURCE (unrecogn ized section and content) DATE CREATED AUTHOR 03/29/2020 [facility] DATE CREATED AUTHOR AUTHOR'S ORGANIZ ATION 09/07/2021 [facility] DATE CREATED AUTHOR AUTHOR'S ORGANIZ ATION 02/20/2023 [facility] DATE CREATED AUTHOR AUTHOR'S ORGANIZ ATION 12/24/2023 [facility] DATE CREATED AUTHOR AUTHOR'S ORGANIZ ATION 02/29/2024 [facility] EPIC DATE CREATED AUTHOR AUTHOR'S ORGANIZ ATION 09/21/2024 [facility] DATE CREATED AUTHOR AUTHOR'S ORGANIZ ATION 09/24/2024 [facility] DATE CREATED AUTHOR AUTHOR'S ORGANIZ ATION 11/20/2024 [facility] REASON FOR VISIT (unrecogniz ed section and content) Reason Comments Chest Congestion Nasal Congestion Reason Comments Follow-up OV F/U 6 MO NO TESTS L/S [facility] EKG 07/19/24 Reason Comments Med Refill Care Teams (unrecognized sec tion and content) Team Status: Active Member Role Status Ashley Batista DO Primary Care Provider Active Team Status: Inactive Member Role Status Ashley Batista DO Primary Care Provide r, Attending Provider Active Start: December 15, 2024 End: December 15, 2024 Team Status: Active Member Role Status Ashley Batista DO Primary Care Provider Active Team Status: Active Member Role Status Ashley Batista DO Primary Care Provider Active S tart: July 13, 2024 Darryn aBptiste LPN Attending Provider Active St art: July 13, 2024 Team Status: Inactive Member Role Status Ashley Batista DO Primary Care Provide r, Attending Provider Active Start: August 11, 2024 End: August 11, 2024 Team Status: Inactive Member Role Status Ashley Batista DO Primary Care Provide r, Attending Provider Active Start: January 12, 2024 End: January 12, 2024 Team Status: Active Member Role Status Ashley Batista DO Primary Care Provide r, Attending Provider Active Start: February 13, 2024 Team Status: Inactive Member Role Status Dates Armida Batista DO Primary Care Provide r, Attending Provider Active Start: March 27, 2024 End: March 27, 2024 [employer] Worker Relationship Specialty Start Date End Date Dr. 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 Relationship Specialty Start Date End Date Armida Batista DO [address] [address] PCP - General 02/24/23 [employer] Worker Relationship Specialty Start Date End Date Armida Batista DO [address] [place] [address] PCP - General 02/24/23 [employer] Worker Relationship Specialty Start Date End Date Armida Batista DO [address] [place] [address] PCP - General 02/24/23 Team Status: Inactive Member Role Status Dates Armida Batista DO Primary Care Provide r, Attending Provider Active Start: December 15, 2024 End: December 15, 2024 Goals (unrecognized section and content) Goals [...] BE BASED ON THE PRIMARY CLINICAL RECORDS. [facility] provides no warranty or guarantee of the accuracy or completeness of information in this document.
--- NOTE | 2024-12-19 12:07 | XR_ITS ---
The [address] [address] Patient Name: MAURO NUNEZ MRN: [id number] date: 1980 Sex: M Assigned Patient Location: RAD Current Patient Location: [facility] Accession/Order Number: [id number] Exam Date: 12/19/2024 13:31 Report Date: 12/19/2024 13:35 At the request of: ARMIDA BATISTA Procedure: XR sacrum coccyx min 2V SACRUM AND COCCYX - 4 views CLINICAL HISTORY: Chronic low back pain radiating to the buttocks M54.50. No reported injury. COMPARISON: Lumbar spine 02/15/2023 Lateral as well as AP views in upward and downward projection were obtained. No fracture or displacement is identified. The SI joints and sacral foramen appear intact. No soft tissue abnormalities are seen. XR/XR sacrum coccyx min 2V IMPRESSION: NO ACUTE BONY FINDINGS. Impression dictated by: Viridiana Polk M.D.12/19/2024 1:35 PM Dictation Location[facility] Electronically authenticated by: [id number] Y Date: 12/19/2024 13:35
== END 2024-12-19 11:49 | disposition home or self-care (01) ==
LOC: RAD 11:50
PROVIDERS: PCP Family Medicine; Visit Provider Family Medicine
DX: M54.50 Low back pain, unspecified (principal)
CPT/HCPCS: 72220